=== PATIENT | male | born 1950 | race Caucasian/White ===

== ENCOUNTER 2022-05-21 12:15 | Outpatient (REF) | payer MEDICARE, BC, SELFPAY ==
--- OUTSIDE RECORDS SUMMARY | 2022-05-21 12:18 | XMS_ITS ---
:1950 Author Care Team Providers Name Role Phone LISANDRO CAMACHO MD Primary Care Provider [phone] Allergies Code Code System Name Reaction Severity Status Onset 723 RxNorm Amoxicillin Rash ? Active ? 96028 RxNorm Lisinopril Cough ? Active ? Medications Name Status Start Date Stop Date ? ? amlodipine 5 mg tablet Active ? Not avail able aspirin 81 mg tablet,delayed release Active ? Not available Take 1 tablet every day by oral route. atorvastatin 40 mg tablet Active ? Not av ailable cefprozil 500 mg tablet Active ? Not avai lable TAKE ONE TABLET BY MOUTH TWICE DAILY ceftriaxone 1 gram solution for injection Completed ? 08/30/2020 Take 1 g by injection route. ciprofloxacin 500 mg tablet Completed ? 07/03 doxycycline hyclate 100 mg tablet Completed ? 08/30/2020 doxycycline hyclate 50 mg capsule Active ? Not available Eligard 45 mg (6 month) subcutaneous syringe Active ? Not available Inject 45 mg by subcutaneous route. gentamicin 40 mg/mL injection solution Active ? Not available Take 40 mg by injection route. hydrocodone 5 mg-acetaminophen 325 mg tablet Active ? Not available lisinopril 5 mg tablet Completed ? 0 metoprolol succinate ER 50 mg tablet,extended release 24 Active ? Not available hr nitroglycerin 0.4 mg sublingual tablet Active ? Not available ProAir RespiClick 90 mcg/actuation breath activated Active ? Not available Shingrix (PF) 50 mcg/0.5 mL intramuscular suspension, Active ? Not available kit Symbicort 160 mcg-4.5 mcg/actuation HFA aerosol inhaler Active ? Not available tobramycin 0.3 %-dexamethasone 0.1 % eye Completed ? 08/30/2020 drops,suspension Problems None recorded. Procedures Date Name Performed by ? 03/06/2018 Colonoscopy Information not avai lable 06/16/2021 NM, Bone Scan, Whole Body [facility] Radiology Department [address] [facility] [place] [address] (Work Place) Results Lab Results Date Name Specimen Result Interpretation Description Value Range Status Address ? 12/13/2021 PSA, Serum or Plasma ? PSA, Total <0.04 ? ? 12/13/2021 PSA, Serum or Plasma ? No observation recor ded. ? ? ? 07/13/2020 PSA, Serum or Plasma ? No observation recor ded. ? ? ? 06/22/2020 PSA, Serum or Plasma ? No observation recor ded. ? PSA, Serum or Plasma ? No observation recorded. ? ? ? Past Encounters 12/13/2021 Malignant Tumor of Prostate Dave Gomez MD: [address], [place] [address], Ph. 10/30/2021 Malignant Tumor of Prostate Dave Gomez MD: [address], [place] [address], Ph. 08/23/2021 Malignant Tumor of Prostate Dave Gomez MD: [address], [place] [address], Ph. 07/19/2021 Malignant Tumor of Prostate Dave Gomez MD: [address], [place] [address], Ph. 06/13/2021 Malignant Tumor of Prostate; Primary Ere ctile Dysfunction; Large Prostate; History of Malignant Neoplasm of Prostate Dave Gomez MD: [address], [address] [place] [address], Ph. 05/12/2021 Malignant Tumor of Prostate; Large Prost ate; Raised Prostate Specific Antigen Dave Gomez MD: [address], [address], [place] [address], Ph. Social History Tobacco Smoking Status Never Smoker Vaccine List Vaccine Type pneumococcal polysaccharide PPV23 05/21/2014 Plan of Care Patient Instructions Patient will try and RTC by this aftern oon to have bladder scanned- [place]. Otherwise will call if he feels as though he is not emptying his bladder. Reminders Provider Appointments None recorded. ? ? Lab None recorded. ? ? Referral None recorded. ? ? Procedures None recorded. ? ? Surgeries None recorded. ? ? Imaging None recorded. ? ? Vitals 12/13/2021 11:30AM ESTABLISHED 15 Height Weight BMI 6 ft 3 in 250 lbs 31.2 kg/m2 08/23/2021 08:00AM TRUS 30 Height Weight BMI 6 ft 3 in 250 lbs 31.2 kg/m2 07/19/2021 02:00PM ESTABLISHED 20 Height Weight BMI 6 ft 3 in 250 lbs 31.2 kg/m2 06/13/2021 11:00AM [place] TALK Height Weight BMI 6 ft 3 in 260 lbs 32.5 kg/m2 05/12/2021 10:30AM URONAV 30 Height Weight BMI 6 ft 3 in 260 lbs 32.5 kg/m2 08/30/2020 08:30AM [place] TALK Height Weight BMI 6 ft 3 in 260 lbs 32.5 kg/m2
[2022-05-21 13:31] LABS: PSA Diagnostic* < 0.06 ng/mL (0.10-4.00)
== END 2022-05-21 12:16 | disposition home or self-care (01) ==
LOC: NPINS 12:15
PROVIDERS: PCP Family Medicine; Visit Provider Urology
DX: C61 Malignant neoplasm of prostate (principal)
CPT/HCPCS: 84153

== ENCOUNTER 2022-06-21 15:13 | Outpatient (CLI) | payer MEDICARE, BC, SELFPAY ==
--- OUTSIDE RECORDS SUMMARY | 2022-06-21 15:15 | XMS_ITS | Encounter Summary ---
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 [address] [place] [address] documented as of this encounter
--- OUTSIDE RECORDS SUMMARY | 2022-06-21 15:15 | XMS_ITS | Encounter Summary ---
:1950 Author Organization [facility] Address [address] [place] [address] Care Team Providers Name Role Phone Richar Rivas MD Primary Care Provider Encounter Details Date Type Department Care Team Description 10/23/2021 Lab [facility] Dave Gomez MD Encounter for screening Clinic [place] [facility] for other viral Laboratory [address] [facility] [address] [place] [address] [phone] Social History Tobacco Use Types Packs/Day Years Used Date Smoking Tobacco: Never Assessed Sex Assigned at Date Recorded Male 10/16/2021 11:49 AM [employer] COVID-19 Exposure Response Date Recorded In the last month, have you been in contact with No / Unsure 10/23/2021 11:18 AM [employer] someone who was confirmed or suspected to have Coronavirus / COVID-19? documented as of this encounter Plan of Treatment Not on filedocumented as of this encounter Procedures Procedure Name Priority Date/Time Associated Diagnosis Comme nts COVID-19 VIRUS Routine 10/23/2021 11:23 AM Encounter for Resul ts for this (CORONAVIRUS) BY [employer] screening for other proc edure are in PCR viral diseases the results section. documented in this encounter Results Asymptomatic COVID-19 Virus (Coronavirus) by PCR Nose (10/23/2021 11:23 AM [employer] GR[employer]) [facility] Method Time Signature SARS CoV2 PCR Negative Negative, 10/24/2021 [facility] Testing sent to 11:37 AM LABORATORY reference lab. [employer] Results will be returned via unsolicited result Comment: NEGATIVE: SARS-CoV-2 (COVID-19) RNA not detected, presumed negative. Specimen Anatomical Collection Method Collection Time Receive d Time (Source) Location / / Volume Laterality Swab NASAL STRUCTURE / Non-blood 10/23/2021 11:23 2021 Unknown Collection / AM [employer] 11:23 AM [employer] Unknown Narrative [facility] - 10/24/2021 11:37 AM [employer] Testing was performed using the phillip SARS-CoV-2 assay on the phillip Lookmash0 System. This test should be ordered for the detection of SARS-CoV-2 in individuals who meet SARS- CoV-2 clinical and/or epidemiological criteria. Test performan ce is unknown in asymptomatic patients. This test is for in vitro diag nostic use under the FDA EUA for laboratories certified under CLIA to perform high and/or moderate complexity testing. This test has not be en FDA cleared or approved. A negative result does not rule out the pr esence of PCR inhibitors in the specimen or target RNA in concentrat ion below the limit of detection for the assay. The possibility of a false negative should be considered if the patient's recent ex posure or clinical presentation suggests COVID-19. This robert t was validated by the [facility] Infectious Diseases Diag nostic Laboratory. This laboratory is certified under the [facility] Laboratory Improvement Amendments of 1988 (CLIA-88) as qualifie d to perform high and/or moderate complexity laboratory testing. Dave Gomez MD LAB - MICRO GENERAL ORDERABL ES Performing Organization Address City/State/ZIP Code Phon e Number [facility] [place] [address]ag[address] 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
--- OUTSIDE RECORDS SUMMARY | 2022-06-21 15:15 | XMS_ITS | Encounter Summary ---
:1950 Author Organization [facility] Address [address] [place] [id number] Care Team Providers Name Role Phone Richar Rivas MD Primary Care Provider Reason for Visit Auth/Cert Specialty Diagnoses / Procedures Referred By Contact Refer red To Contact Surgery Diagnoses Neoplasm/cancer (H) Neoplasm/cancer (H) [C80.1] Sh Periop Services Procedures ZZC ABLATION, CRYOSURGICAL, PROSTATE FLEXIBLE CYSTOSCOPY CRYOTHERAPY OF THE PROSTATE [address], [address] [place] [phone] Phone: Referral ID Status Reason Start Date Expiration Date Visits Requ ested Visits Authorized [id number] 1 1 Encounter Details Date Type Department Care Team Description 10/26/2021 Hospital Encounter M [facility] Patricia, Evelio Kessler MD Prostate cancer (H) [facility] (Primary Dx) PreOP/Phase II LTD [address], [address] [place] [phone] Social History Tobacco Use Types Packs/Day Years Used Date Smoking Tobacco: Never Smokeless Tobacco: Never Alcohol Use Standard Drinks/Week Comments Not Currently 0 (1 standard drink = 0.6 oz pure alcoho l) Sex Assigned at Date Recorded Male 10/16/2021 11:49 AM [employer] COVID-19 Exposure Response Date Recorded In the last month, have you been in contact with No / Unsure 10/26/2021 7:44 AM [employer] someone who was confirmed or suspected to have Coronavirus / COVID-19? documented as of this encounter Last Filed Vital Signs Vital Sign Reading Time Taken Comments Blood Pressure 142/89 10/26/2021 2:20 PM [employer] Pulse 72 10/26/2021 2:20 PM [employer] Temperature 36.2 ??C (97.2 ??F) 10/26/2021 2:20 PM [employer] Respiratory Rate 16 10/26/2021 2:20 PM [employer] Oxygen Saturation 98% 10/26/2021 2:20 PM [employer] Inhaled Oxygen Concentration - - Weight 116.2 kg (256 lb 1.6 oz) 10/26/2021 9:03 AM [employer] Height 190.5 cm (6' 3) 10/26/2021 9:03 AM [employer] Body Mass Index 32.01 10/26/2021 9:03 AM [employer] documented in this encounter Discharge Instructions Discharge InstructionsShira Blanco RN - 10/26/2021 12:32 PM CST Same Day Surgery Discharge Instructions for Sedation and General Anesthesia ?? It's not unusual to feel dizzy, light-headed or faint for up to 24 hours after surgery or while taking pain medication. If you have these symptoms: sit for a few minutes before standing and have someone assist you when you get up to walk or use the bathroom. ?? You should rest and relax for the next 24 hours. We recommend you make arrangements to have an adult stay with you for at least 24 hours after your discharge. Avoid hazardous and strenuous activity. ?? DO NOT DRIVE any vehicle or operate mechanical equipment for 24 hours following the end of your surgery. Even though you may feel normal, your reactions may be affected by the medication you have received. ?? Do not drink alcoholic beverages for 24 hours following surgery. ?? Slowly progress to your regular diet as you feel able. It's not unusual to feel nauseated and/or vomit after receiving anesthesia. If you develop these symptoms, drink clear liquids (apple juice, christoph padmini, broth, 7-up, etc. ) until you feel better. If your nausea and vomiting persists for 24 hours, please notify your surgeon. ?? All narcotic pain medications, along with inactivity and anesthesia, can cause constipation. Drinking plenty of liquids and increasing fiber intake will help. ?? For any questions of a medical nature, call your surgeon. ?? Do not make important decisions for 24 hours. ?? If you had general anesthesia, you may have a sore throat for a couple of days related to the breathing tube used during surgery. You may use Cepacol lozenges to help with this discomfort. If it worsens or if you develop a fever, contact your surgeon. ?? If you feel your pain is not well managed with the pain medications prescribed by your surgeon, please contact your surgeon's office to let them know so they can address your concerns. CoVid 19 Information We want to give you information regarding Covid. Please consult your primary care provider with any questions you might have. Patient who have symptoms (cough, fever, or shortness of breath), need to isolate for 7 days from when symptoms started OR 72 hours after fever resolves (without fever reducing medications) AND improvement of respiratory symptoms (whichever is longer). ?? Isolate yourself at home (in own room/own bathroom if possible) ?? Do Not allow any visitors ?? Do Not go to work or school ?? Do Not go to baptism, [facility], shopping, or other public places. ?? Do Not shake hands. ?? Avoid close and intimate contact with others (hugging, kissing). ?? Follow CDC recommendations for household cleaning of frequently touched services. After the initial 7 days, continue to isolate yourself from household members as much as possible. To continue decrease the risk of community spread and exposure, you and any members of your household should limit activities in public for 14 days after starting home isolation. You can reference the following CDC link for helpful home isolation/care tips: https://www.cdc.gov/coronavirus/2019-ncov/downloads/10Things.pdf Protect Others: ?? Cover Your Mouth and Nose with a mask, disposable tissue or wash cloth to avoid spreading germs to others. ?? Wash your hands and face frequently with soap and water Call Your Primary Doctor If: Breathing difficulty develops or you become worse. For more information about COVID19 and options for caring for yourself at home, please visit the CDCwebsite at https://www.cdc.gov/coronavirus/2019-ncov/about/lpark-kovw-qijv.html For more options for care at [facility], please visit our website at [email or web address] Discharge Instructions following Cryoblation of the Prostate [facility] Diet: ??? Diet as tolerated. Drink at least 6 glasses of liquid per day. Activity: ??? No heavy lifting or strenuous activity until approved by surgeon. ??? Short walks and stair climbing are permissible. Care After Surgery ??? Do not hold urine in your bladder. Always empty your bladder when you have the urge to urinate. ??? Do not strain to have a bowel movement. If constipated, take [id number] stool softeners (follow directions on package). ??? Do not drive a car or have intercourse until approved by your surgeon. ??? It is not unusual to pass small clots or to have red-tinged urine. If this occurs, decrease activity and increase your fluid intake. o You may expect to have some blood for at least 3-4 weeks, especially at the beginning or end of urination. If there is dark, thick blood with difficulty urinating call your surgeon. DISCHARGE INSTRUCTIONS FOR CATHETER CARE AT HOME . Basic Catheter Care 1. Always wash hands before and after handling your catheter. 2. Use soap and water to wash the area around your catheter. 3. Do this procedure twice a day. 4. Proper cleansing will help keep the area from becoming irritated or infected. Leg Bag This is a small plastic bag that collects urine draining from your catheter and then strapped aroundyour thigh. It will need to be emptied when the bag is 1/2 to 3/4 full. Large Drainage Bag 1. This bag is larger than the leg bag and holds more urine. It is to be used while at home, especially at night. 2. Before you go to bed, change the leg bag to the large drainage bag. 3. Pinch off the catheter with your fingers and swab the connection between the catheter and leg bagwith alcohol sponge. 4. Disconnect the leg bag and connect the large drainage bag to your catheter. 5. When you get into bed, arrange the drainage tubing so that it doesn???t kink. 6. Be sure to keep the bag below the level of your bladder and allow enough slack for turning. Cleaning Your Drainage Bags 1. Wash hands. 2. Using funnel or syringe, fill the bag half full with a solution of 1/2 vinegar and 1/2 water. 3. Shake bag, allowing mixture to cleanse inside of bag. 4. Empty out all vinegar and water mixture from your bag. 5. Hang bag to dry when not in use. 6. Clean your bags anytime you change them. Helpful Hints 1. Always keep drainage bags below bladder level to insure adequate drainage. 2. Drink 4-6 glasses of water daily along with other fluids you normally drink to keep urine free ofinfection and / or clots. 3. If you notice no urine in your bag for 2 to 4 hours or you develop extreme discomfort in bladder area, your catheter maybe plugged. Notify your doctor. 4. If you notice your urine becomes foul smelling and cloudy, notify your doctor. Also notify your doctor if you develop fever or chills. 5. If you notice urine leaking around the outside of the catheter, check to be sure catheter or tubing is not kinked. 6. Don???t use leg bag while in bed. If you have questions or concerns about your procedure, call Dr. Gomez at [phone] [employer] documented in this encounter Medications at Time of Discharge Medication Sig Dispensed Refills Start Date End Date albuterol (PROAIR Inhale 2 puffs into 0 HFA/PROVENTIL HFA/VENTOLIN the lungs every 6 HFA) 108 (90 Base) MCG/ACT hours inhaler amLODIPine (NORVASC) 5 MG Take 5 mg by mouth 0 tablet daily aspirin 81 MG EC tablet Take 81 mg by mouth 0 daily atorvastatin (LIPITOR) 40 Take 40 mg by mouth 0 MG tablet daily cefPROZIL (CEFZIL) 500 MG Take 500 mg by mouth 0 tablet 2 times daily doxycycline hyclate Take 100 mg by mouth 0 (VIBRAMYCIN) 100 MG 2 times daily capsule fexofenadine (GRAHAM) 180 Take 180 mg by mouth 0 MG tablet daily fish oil-omega-3 fatty Take 2 g by mouth 2 0 acids 1000 MG capsule times daily HYDROcodone-acetaminophen Take 1-2 tablets by 5 tablet 0 0 10/26/2021 (NORCO) 5-325 MG mouth every 4 hours tabletIndications: as needed for Prostate cancer (H) moderate to severe pain metoprolol succinate ER Take 50 mg by mouth 0 (TOPROL-XL) 50 MG 24 hr daily tablet nitroGLYcerin (NITROSTAT) Place 0.4 mg under 0 0.4 MG sublingual tablet the tongue every 5 minutes as needed for chest pain For chest pain place 1 tablet under the tongue every 5 minutes for 3 doses. If symptoms persist 5 minutes after 1st dose call 911. documented as of this encounter H&P Notes Gerson Schofield MD - 10/26/2021 8:57 AM CST I have reviewed the surgical (or preoperative) H&P that is linked to this encounter, and examined the patient. There are no significant changes [employer] Source Note - Anastasia, Provider - 10/24/2021 11:27 AM [employer] documented in this encounter Procedure Notes Dave Gomez MD - 10/26/2021 11:30 AM CST [facility] Urology Brief Operative Note Pre-operative diagnosis: Prostate cancer Post-operative diagnosis: Same Procedure: Procedure(s): FLEXIBLE CYSTOSCOPY CRYOTHERAPY OF THE PROSTATE Surgeon: Dave Gomez MD Clinical Program Director(s): None Anesthesia: General endotracheal anesthesia Estimated blood loss: None Total IV fluids: (See anesthesia record) Blood transfusion: No transfusion was given during surgery Total urine output: (See anesthesia record) Drains: Nina catheter Specimens: None Implants: None Findings: See op note Complications: None Condition: Stable Comments: See dictated operative report for full details [employer] documented in this encounter Nursing Notes Shira Blanco RN - 10/26/2021 2:34 PM CST VSS. A&O. Pain tolerable. Tanesha PO, no N/V. Nina education done with patient and , able to teachback. DC instructions reviewed, questions answered. DC to home with . [employer] Reyna Champagne RN - 10/26/2021 1:24 PM CST Assumed cares while primary nurse went on break from 1315 to 1345. [employer] documented in this encounter Miscellaneous Notes Op Note - Dave Gomez MD - 10/26/2021 11:37 AM CST Procedure Date: 10/26/2021 PREOPERATIVE DIAGNOSIS: Prostate cancer. POSTOPERATIVE DIAGNOSIS: Prostate cancer. PROCEDURES PERFORMED: 1. Flexible cystoscopy. 2. Cryoablation of the prostate. SURGEON: Dave Gomez MD ANESTHESIA: General. ESTIMATED BLOOD LOSS: Zero. DESCRIPTION OF PROCEDURE: The patient was prepped and draped in the modified dorsal lithotomy position under satisfactory general endotracheal anesthetic with a multidisciplinary timeout observed, I inserted a transrectal B and K ultrasound probe and measured the prostate to be over 4 cm in length and, therefore, ice rods were chosen as the cryoablation device. A Nina catheter was inserted (16 Pakistani coude) and this was visualized on the ultrasound machine. Using the transrectal ultrasound. I placed an 8 cryoprobes, with an over predominance of the cryoprobes located anteriorly as this is where the higher grade prostate cancer was noted. Once the cryoprobes were in the appropriate places, thermal sensors were placed to ensure that no injury occurred to the rectum or other additional sites. A double freeze-thaw technique using argon gas to freeze and electrical current to warm took place that was per routine. I watched the ice ball as it propagated through the prostate, particularly in the anterior portion of the prostate very nicely. At no time did I see an ice ball encroach on the rectum. After the second thawing, the cryoprobes were removed from the perineum and pressure applied for 10 minutes. Prior to any freezing, Nina catheter had been removed and I had used a flexible cystoscope to make sure that no cryoprobes had perforated the prostatic urethra. I then passed a Super Stiff Amplatz wire, backloaded the flexible scope off of the wire and then inserted a urethral warming device. The urethral warming device was run throughout the procedure and an additional 20 minutes after the second following procedure. I then reinserted the Nina catheter. The patient will go home with this through the weekend and then come to our office on 10/30/2021, for Nina catheter removal. I spoke to the patient's and will see Ethan back in the clinic in approximately 2 months to check a PSA. Tegaderm dressing was applied and his will remove this over the weekend. The patient tolerated the procedure well and left the operating room in stable condition. Dave Gomez MD MT: [id number] Name: JAYDEN CROOK Account: [id number] : 1950 Procedure Date: 10/26/2021 Document: [id number] [employer] documented in this encounter Plan of Treatment Not on filedocumented as of this encounter Procedures Procedure Name Priority Date/Time Associated Diagnosis Comme nts CRYOTHERAPY, PROSTATE, 10/26/2021 9:39 AM [employer] Neoplasm /cancer (H) WITH FLEXIBLE CYSTOSCOPY Case Notes [employer] Special Needs CONFIGURATION MANAGEMENT ARCHITECT FOR FLEXIBLE CYSTOSCOPY PER OFFICE 09/29/21 AB TYPE AND SCREEN, ADULT STAT 10/26/2021 9:15 AM [employer] Results for this procedure are in the resu lts section. ABO/RH TYPE AND SCREEN STAT 10/26/2021 9:15 AM [employer] Results for this procedure are in the resu lts section. NUCLEAR CARDIAC - HIM SCAN 09/06/2021 12:00 AM [employer] documented in this encounter Results Adult Type and Screen (10/26/2021 9:15 AM [employer]) [facility] Method Time Signature ABO/RH(D) A POS 10/26/2021 SH BLOOD 8:45 AM [employer] BANK Antibody Negative Negative 10/26/2021 SH BLOOD Screen 8:45 AM [employer] BANK SPECIMEN [id number] 10/26/2021 SH BLOOD EXPIRATION 8:45 AM [employer] BANK DATE Specimen Anatomical Collection Method / Collection Time Recei alexx Time (Source) Location / Volume Laterality Blood STRUCTURE OF RIGHT Venipuncture / 10/26/2021 9:15 10/04 9:27 HAND / Unknown Unknown AM [employer] AM [employer] Yesica Elizabeth PA-C LAB - BLOOD BANK TEST ORDER Performing Organization Address City/State/ZIP Code Phon e Number BLOOD BANK [address] [place] [phone] NUCLEAR CARDIAC - HIM SCAN (09/06/2021 12:00 AM [employer]) Anatomical Region Laterality Modality Other Specimen (Source) Anatomical Location Collection Method / Collectio n Time Received Time / Laterality Volume 09/06/2021 Narrative This result has an attachment that is no t available. Provider Scan IMG NM ORDERABLES documented in this encounter Visit Diagnoses Diagnosis Prostate cancer (H) - Primary Malignant neoplasm of prostate documented in this encounter Administered Medications Inactive Administered Medications - up to 3 most recent administrations Medication Order MAR Action Action Date Dose Rate Site fentaNYL (PF) (SUBLIMAZE) Given 10/26/2021 1:15 PM [employer] 50 mcg injection 50 mcg 50 mcg, Intravenous, EVERY 5 MIN PRN, moderate to severe pain, Starting on Ameena 10/26/21 at 1222, Administer fentaNYL (SUBLIMAZE) for acute pain control. Move to HYDROmorphone (DILAUDID): - IF patient has received up to 4 doses (200 mcg) of fentaNYL (SUBLIMAZE), OR - IF severe pain (pain score greater than or equal to seven (7) or inability of patient to participate in post op recovery due to pain) AFTER 2 doses fentaNYL (SUBLIMAZE). WAIT 5 minutes AFTER last fentaNYL (SUBLIMAZE) dose before administering HYDROmorphone (DILAUDID). Postop Anesthesia Phase I only. Notify Provider to assess for uncontrolled pain or analgesic side effects. Do NOT revert back to fentanyl (SUBLIMAZE) after moving to HYDROmorphone (DILAUDID)., PACU Given 10/26/2021 1:00 PM [employer] 50 mcg hydrALAZINE (APRESOLINE) injection 5 mg Given 10/26/2021 1:31 PM [employer] 5 mg 5 mg, Intravenous, ONCE, Administer over 1 Minutes, On Ameena 10/26/21 at 1400, For 1 dose HYDROcodone-acetaminophen (NORCO) 5-325 MG Given 10/26 1:00 PM [employer] 1 tablet per tablet 1 tablet 1 tablet, Oral, ONCE, On Ameena 10/26/21 at 1230, For 1 dose, May administer ONCE as needed for pain control or improvement in physical function. Notify provider to assess for uncontrolled pain or??analgesic side effects. Maximum acetaminophen dose from all sources= 75 mg/kg/day not to exceed 4 grams lactated ringers infusion New Bag 10/26/2021 11:53 AM [employer] at 25 mL/hr, Intravenous, CONTINUOUS, IF patient NOT on dialysis., Pre-procedure, Starting on Ameena 10/26/21 at 0830, Until Ameena 10/26/21 at 1209 New Bag 10/26/2021 9:44 AM [employer] 25 mL/hr meperidine (DEMEROL) injection 12.5 mg Given 10/26/2021 1:36 PM [employer] 12.5 mg 12.5 mg, Intravenous, EVERY 15 MIN PRN, post anesthesia shivering, Starting on Ameena 10/26/21 at 1223, For 2 doses, PACU/Phase II documented in this encounter Active and Recently Administered Medications Times are shown in [employer]. Scheduled Medication Order 10/24/2021 10/25/2021 10/26/2021 hydrALAZINE (APRESOLINE) injection 5 mg (COMPLETED) 1331 (Given - Provider: Reyna Champagne RN) 5 mg, Intravenous, ONCE, Administer over 1 Minutes, On Ameena 10/26/21 at 1400, For 1 dose HYDROcodone-acetaminophen (NORCO) 5-325 MG per tablet 1 tablet ( COMPLETED) 1300 (Given - Provider: Shira Blanco, RELL) 1 tablet, Oral, ONCE, On Ameena 10/26/21 at 1230, For 1 dose, May administer ONCE as needed for pain control or improvement in physical function. Notify provider to assess for uncontrolled pain or??analgesi c side effects. Maximum acetaminophen do se from all sources= 75 mg/kg/day not to exceed 4 grams Continuous Medication Order 10/24/2021 10/25/2021 10/26/2021 lactated ringers infusion (CANCELED) 0944 (New Bag - Provider: Gerson Bolden RN)1152 (Paused - Provider: Jorge Alberto Garcia APRN COIL WRAPPER - Comment: Switch to gravity)1153 (New Bag - Provider: Jorge Alberto Garcia APRN COIL WRAPPER) at 25 mL/hr, Intravenous, CONTINUOUS, IF patient NOT on dialysis., Pre- procedure, Starting on Ameena 10/26/21 at 0830, Until Ameena 10/26/21 at 1209 PRN Medication Order 10/24/2021 10/25/2021 10/26/2021 fentaNYL (PF) (SUBLIMAZE) injection 50 mcg (CANCELED) 1300 (Given - Provider: Shira Blanco RN)1315 (Given - Provider: Reyna Champagne RN) 50 mcg, Intravenous, EVERY 5 MIN PRN, mo derate to severe pain, Starting on Ameena 10/26/21 at 1222, Administer fentaNYL (SUBLIMAZE) for acute pain control. Move to HYDROmorphone (DILAUDID): - IF patient has received up to 4 doses (200 mcg) of fen taNYL (SUBLIMAZE), OR - IF severe pain (pain score greater than or equal to seven (7) or inability of patient to participate in post op recovery due to pain) AFTE R 2 doses fentaNYL (SUBLIMAZE). WAIT 5 m inutes AFTER last fentaNYL (SUBLIMAZE) dose before administering HYDROmorphone (DILAUDID). Postop Anesthesia Phase I only. Notify Provider to assess for uncontrol led pain or analgesic side effects. Do N OT revert back to fentanyl (SUBLIMAZE) after moving to HYDROmorphone (DILAUDID)., PACU meperidine (DEMEROL) injection 12.5 mg (CANCELED) 1336 (Given - Provider: Reyna Champagne RN) 12.5 mg, Intravenous, EVERY 15 MIN PRN, post anesthesia shivering, Starting on Ameena 10/26/21 at 1223, For 2 doses, PACU/Phase II opium-belladonna (B&O SUPPRETTES) 30-16.2 MG per suppository (CA NCELED) 1148 (Given - Provider: Dave Gomez MD) PRN, Starting on Ameena 10/26/21 at 1148, Intra-procedure documented in this encounter Care Teams Digital Advertising Specialist Relationship Specialty Start Date End Date Richar Rivas MD PCP - General Family Medicine 10/03/21 [facility] [address] [place] [address] documented as of this encounter
--- OUTSIDE RECORDS SUMMARY | 2022-06-21 15:15 | XMS_ITS | Encounter Summary ---
:1950 Author Organization [facility] Address [address] [place] [address] Care Team Providers Name Role Phone Richar Rivas MD Primary Care Provider Reason for Visit Auth/Cert Specialty Diagnoses / Procedures Referred By Contact Refer red To Contact Surgery Diagnoses Neoplasm/cancer (H) Neoplasm/cancer (H) [C80.1] Periop Services Procedures [facility] ABLATION, CRYOSURGICAL, PROSTATE FLEXIBLE CYSTOSCOPY CRYOTHERAPY OF THE PROSTATE [address], [address] [place] [address] Phone: Referral ID Status Reason Start Date Expiration Date Visits Requ ested Visits Authorized [id number] 1 1 Encounter Details Date Type Department Care Team Description 10/26/2021 Surgery [facility] Dave Gomez MD FLEXIBLE CYSTOSCOPY [facility]iOP [facility] CRYOTHERAPY OF THE Services [address] SUE PROSTATE [address] [place] [address] [place] [address] [phone] Surgery Details Date/Time Status Location OR Service Patient Case Class Case Tr auma Class Type Case? 10/26/21 9:50 Posted OR OR M 31 Urology Same Day AM Surgery Panel 1 Procedure LRB Anes Op Region Wound Class Commen ts FLEXIBLE CYSTOSCOPY CRYOTHERAPY OF THE N/A General Pelvis I-Clean PROSTATE Surgeon Surgeon Role Service Panel Dave Gomez MD Primary Urology 1 Case Notes [employer] INVOICE Special Needs SPINNER OPEN END FOR FLEXIBLE CYSTOSCOPY P ER OFFICE 09/29/21 AB documented in this encounter Social History Tobacco Use Types Packs/Day Years Used Date Smoking Tobacco: Never Smokeless Tobacco: Never Alcohol Use Standard Drinks/Week Comments Not Currently 0 (1 standard drink = 0.6 oz pure alcoho l) Sex Assigned at Date Recorded Male 10/16/2021 11:49 AM [facility] COVID-19 Exposure Response Date Recorded In the last month, have you been in contact with No / Unsure 10/26/2021 7:44 AM [facility] [employer] someone who was confirmed or suspected to have Coronavirus / COVID-19? documented as of this encounter Last Filed Vital Signs Vital Sign Reading Time Taken Comments Blood Pressure 163/111 10/26/2021 12:30 PM [facility] Pulse 67 10/26/2021 12:30 PM [facility] Temperature 36.1 ??C (96.9 ??F) 10/26/2021 12:09 PM [facility] Respiratory Rate 11 10/26/2021 12:30 PM [facility] Oxygen Saturation 97% 10/26/2021 12:30 PM [facility] Inhaled Oxygen Concentration - - Weight 116.2 kg (256 lb 1.6 oz) 10/26/2021 9:03 AM [facility] [employer] Height 190.5 cm (6' 3) 10/26/2021 9:03 AM [facility] Body Mass Index 32.01 10/26/2021 9:03 AM [facility] [employer] documented in this encounter Discharge Instructions Discharge [...] or school ?? Do Not go to taoism, child watch attendant centers, shopping, or other public places. ?? [...] at home, please visit the CDCwebsite at https://www.cdc.gov/coronavirus/2019-ncov/about/pegix-gjjz-okdh.html For more options for care at [facility], please visit our website at [email or web address] Discharge Instructions following Cryoblation of the Prostate [facility] Diet: ??? Diet as tolerated. Drink [...] have a bowel movement. If constipated, take khiu-[id number]-[id number] stool softeners (follow directions on package). ??? [...] about your procedure, call Dr. Gomez at [phone] [facility] documented in this encounter Medications at Time [...] the patient. There are no significant changes HEAD HOOPER Source Note - Anastasia, Provider - 10/24/2021 11:27 AM [employer] [employer] documented in this encounter Procedure Notes Dave Gomez MD - 10/26/2021 11:30 AM CST [facility] Urology Brief Operative Note Pre-operative diagnosis: Prostate cancer Post-operative diagnosis: Same Procedure: Procedure(s): FLEXIBLE CYSTOSCOPY CRYOTHERAPY OF THE PROSTATE Surgeon: Dave Gomez MD Retail Sales Professional(s): None Anesthesia: General endotracheal anesthesia Estimated blood loss: None Total IV fluids: (See anesthesia record) Blood transfusion: No transfusion was given during surgery Total urine output: (See anesthesia record) Drains: Nina catheter Specimens: None Implants: None Findings: See op note Complications: None Condition: Stable Comments: See dictated operative report for full details HEAD HOOPER documented in this encounter Nursing Notes Shira Blanco RN - 10/26/2021 2:34 PM CST VSS. A&O. Pain tolerable. Tanesha PO, no N/V. Nina education done with patient and , able to teachback. DC instructions reviewed, questions answered. DC to home with . HEAD HOOPER Reyna Champagne RN - 10/26/2021 1:24 PM CST Assumed cares while primary nurse went on break from 1315 to 1345. HEAD HOOPER documented in this encounter Miscellaneous Notes Op [...] device. A Nina catheter was inserted (16 Kyrgyz coude) and this was visualized on the [...] in stable condition. Dave Gomez MD MT: SCOTTY Name: JAYDEN CROOK MRN: [id number] Account: [id number] : 1950 Procedure Date: 10/26/2021 Document: [id number] HEAD [employer]OPER documented in this encounter Plan of Treatment Not on filedocumented as of this encounter Procedures Procedure Name Priority Date/Time Associated Diagnosis Comme nts CRYOTHERAPY, PROSTATE, 10/26/2021 9:39 AM [facility] Neoplasm /cancer (H) WITH FLEXIBLE CYSTOSCOPY Case Notes [employer] INVOICE Special Needs SPINNER OPEN END FOR FLEXIBLE CYSTOSCOPY PER OFFICE 09/29/21 AB TYPE AND SCREEN, ADULT STAT 10/26/2021 9:15 AM [facility] Results for this procedure are in the resu lts section. ABO/RH TYPE AND SCREEN STAT 10/26/2021 9:15 AM [facility] Results for this procedure are in the resu lts section. NUCLEAR CARDIAC - HIM SCAN 09/06/2021 12:00 AM [facility] [employer] documented in this encounter Results Adult Type and Screen (10/26/2021 9:15 AM [facility]) Patholo gist Method Time Signature ABO/RH(D) A POS 10/26/2021 BLOOD 8:45 AM [facility] BANK Antibody Negative Negative 10/26/2021 BLOOD Screen 8:45 AM [facility] BANK SPECIMEN [id number] 10/26/2021 BLOOD EXPIRATION 8:45 AM [facility] BANK DATE Specimen Anatomical Collection Method / Collection Time Recei alexx Time (Source) Location / Volume Laterality Blood STRUCTURE OF RIGHT Venipuncture / 10/26/2021 9:15 10/04 9:27 HAND / Unknown Unknown AM [facility] AM [facility] Yesica Elizabeth PA-C LAB - BLOOD BANK TEST ORDER Performing Organization Address City/State/ZIP Code Phon e Number BLOOD BANK [address] [phone] NUCLEAR CARDIAC - HIM SCAN (09/06/2021 12:00 AM [facility]) Anatomical Region Laterality Modality Other Specimen (Source) Anatomical Location Collection Method / Collectio n Time Received Time / Laterality Volume 09/06/2021 Narrative This result has an attachment that is no t available. Provider Scan IMG NM ORDERABLES documented in this encounter Visit Diagnoses Diagnosis Prostate cancer (H) - Primary Malignant neoplasm of prostate Neoplasm/cancer (H) Neoplasm of unspecified nature, site uns pecified documented in this encounter Administered Medications Inactive Administered Medications - up to 3 most recent administrations Medication Order MAR Action Action Date Dose Rate Site fentaNYL (PF) (SUBLIMAZE) Given 10/26/2021 1:15 PM [facility] 50 mcg injection 50 mcg 50 mcg, [...] HYDROmorphone (DILAUDID)., PACU Given 10/26/2021 1:00 PM [facility] 50 mcg hydrALAZINE (APRESOLINE) injection 5 mg Given 10/26/2021 1:31 PM [facility] 5 mg 5 mg, Intravenous, ONCE, Administer over 1 Minutes, On Ameena 10/26/21 at 1400, For 1 dose HYDROcodone-acetaminophen (NORCO) 5-325 MG Given 10/26 1:00 PM [facility] 1 tablet per tablet 1 tablet 1 tablet, Oral, ONCE, On Ameena 10/26/21 at 1230, For 1 dose, May administer ONCE as needed for pain control or improvement in physical function. Notify provider to assess for uncontrolled pain or??analgesic side effects. Maximum acetaminophen dose from all sources= 75 mg/kg/day not to exceed 4 grams lactated ringers infusion New Bag 10/26/2021 11:53 AM [facility] at 25 mL/hr, Intravenous, CONTINUOUS, IF patient NOT on dialysis., Pre-procedure, Starting on Ameena 10/26/21 at 0830, Until Ameena 10/26/21 at 1209 New Bag 10/26/2021 9:44 AM [facility] 25 mL/hr meperidine (DEMEROL) injection 12.5 mg Given 10/26/2021 1:36 PM [facility] 12.5 mg 12.5 mg, Intravenous, EVERY 15 MIN PRN, post anesthesia shivering, Starting on Ameena 10/26/21 at 1223, For 2 doses, PACU/Phase II opium-belladonna (B&O SUPPRETTES) 30-16.2 MG Given 11:48 AM [facility] 30 mg per suppository PRN, Starting on Ameena 10/26/21 at 1148, Intra-procedure documented in this encounter Active and Recently Administered Medications Times are shown in [facility]. Scheduled Medication Order 10/24/2021 10/25/2021 10/26/2021 hydrALAZINE (APRESOLINE) injection 5 mg (COMPLETED) 1331 (Given - Provider: Reyna Champagne RN) 5 mg, Intravenous, ONCE, Administer over 1 Minutes, On Ameena 10/26/21 at 1400, For 1 dose HYDROcodone-acetaminophen (NORCO) 5-325 MG per tablet 1 tablet ( COMPLETED) 1300 (Given - Provider: Shira Blanco, RN) 1 tablet, Oral, ONCE, On Ameena 10/26/21 [...] (Paused - Provider: Jorge Alberto Garcia APRN LEDGER POSTER - Comment: Switch to gravity)1153 (New Bag - Provider: Jorge Alberto Garcia APRN LEDGER POSTER) at 25 mL/hr, Intravenous, CONTINUOUS, IF patient [...] Intra-procedure documented in this encounter Care Teams [employer] Hand Engraver Relationship Specialty Start Date End Date Richar Rivas MD PCP - General Family Medicine 10/03/21 [place] [address] documented as of this encounter
--- OUTSIDE RECORDS SUMMARY | 2022-06-21 15:15 | XMS_ITS | Encounter Summary ---
:1950 Author Organization [place] Address [facility] [place] [address] Care Team Providers Name Role Phone Richar Rivas MD Primary Care Provider Encounter Details Date Type Department Care Team Description 10/09/2021 Orders Only [facility] Patricia, Dave Kessler MD Encounter for [facility] screening for other [address] [place] viral diseases [place] [id number] (Primary Dx) [phone] [address] [place] [address] (Wo rk) Social History Tobacco Use Types Packs/Day Years Used Date Smoking Tobacco: Never Assessed Sex Assigned at Date Recorded Male 10/16/2021 11:49 AM [employer]IC[employer] documented as of this encounter Plan of Treatment Not on filedocumented as of this encounter Results Asymptomatic COVID-19 Virus (Coronavirus) by PCR Nose (10/23/2021 11:23 AM DISPENSING AND MEASURING OPTICIAN) [facility] Method Time Signature SARS CoV2 PCR Negative Negative, 10/24/2021 [facility] Testing sent to 11:37 AM LABORATORY reference lab. [employer] MEASURING OPTICIAN Results will be returned via unsolicited result Comment: NEGATIVE: SARS-CoV-2 (COVID-19) RNA not detected, presumed negative. Specimen Anatomical Collection Method Collection Time Receive d Time (Source) Location / / Volume Laterality Swab NASAL STRUCTURE / Non-blood 10/23/2021 11:23 2021 Unknown Collection / AM [employer] ME[employer]URING [employer]ICIAN 11:23 AM DISP[employer]ING AND MEASURING OPTICIAN Unknown Narrative [facility] - 10/24/2021 11:37 AM [employer] MEASURING [employer]ICIAN Testing was performed using the phillip SARS-CoV-2 assay on the phillip 6800 System. This test should be ordered for [...] This robert t was validated by the [facility] Infectious Diseases Diag nostic Laboratory. This laboratory is certified under the Clinic al Laboratory Improvement Amendments of 1988 (CLIA-88) as qualifie d to perform high and/or moderate complexity laboratory testing. Dave Gomez MD LAB - MICRO GENERAL ORDERABL ES Performing Organization Address City/State/ZIP Code Phon e Number [facility] [place] [address] Diag. Lab [address] [facility], [address] [facility] Infectious [place], [place] [phone] Diseases Diagnostic [id number], [facility] Lab (IDDL) [address] [facility], [address] documented in this encounter Visit Diagnoses Diagnosis Encounter for screening for other viral diseases - Primary documented in this encounter Care Teams Health Occupations Teacher Relationship Specialty Start Date End Date Richar Rivas MD PCP - General Family Medicine 10/03/21 [facility] [address] [place] [address] documented as of this encounter
--- OUTSIDE RECORDS SUMMARY | 2022-06-21 15:15 | XMS_ITS | Encounter Summary ---
:1950 Author Organization [place] Address [address] [place], [place] [address]. [place] [address] Care Team Providers Name Role Phone Richar Rivas MD Primary Care Provider Reason for Visit Auth/Cert Specialty Diagnoses / Procedures Referred By Contact Refer red To Contact Surgery Diagnoses Neoplasm/cancer (H) Neoplasm/cancer (H) [C80.1] Periop Services Procedures ZZC ABLATION, CRYOSURGICAL, PROSTATE FLEXIBLE CYSTOSCOPY CRYOTHERAPY OF THE PROSTATE [address], [address] [place] [address] Phone: Referral ID Status Reason Start Date Expiration Date Visits Requ ested Visits Authorized [id number] 1 1 Encounter Details Date Type Department Care Team Description 10/26/2021 Anesthesia Event [facility] Services ANESTHESIOLOGIS [address], [address] [place] [address] [place] [address] [phone] Anesthesia Record Procedure Summary Procedure Name Responsible Anesthesia Start Anesthesia Stop Anesthesiologist Time Time FLEXIBLE CYSTOSCOPY Gerson Schofield MD 10/26/21 1001 1214 CRYOTHERAPY OF THE PROSTATE (Pelvis) Events Date Time Event Comment 10/26/2021 0856 1001 An Start 1001 An Start Data 1001 Initial Antibiotic (Started) 1002 AN REASSESS I attest that I have identified and re-evaluated the patient immediately before the induc tion of anesthesia and I am satisfied duc t the anesthetic plan is suitable for the patient's condition and procedure. The f irst vital signs recorded are pre - induction. RHODA Seals A 1003 MD Present 1004 Antibiotic Complete 1004 An Induction 1006 MD Present 1007 An Intubation 1032 AN INCISION 1032 Quick Note Surgeon requeste d full muscle relaxation for procedure. 1044 MD Present 1131 MD Present 1201 MD Present 1206 AN Extubation All extubation c riteria met prior to removal. 1206 MD Present 1207 an stop data 1214 An Stop Electronically s igned by RHODA Seals on October 26, 2021 12:14 PM Name Total dexamethasone 4mg/mL 4 mg ePHEDrine 5 mg/mL 25 mg fentaNYL (SUBLIMAZE) injection 100 mcg lidocaine 2% 100 mg ondansetron 2mg/mL 4 mg phenylephrine (TALAT-SYNEPHRINE) injection 800 mcg propofol (DIPRIVAN) injection 10 mg/mL vial 200 mg rocuronium 10mg/mL 110 mg ceFAZolin vial 1 gm 2 g sugammadex (BRIDION) 200mg/2mL 200 mg lactated ringers infusion 900 mL Agents Name NO HELIOX O2 N2O Air Exp Sevoflurane Exp Isoflurane Exp Desflurane Exp N2O O2 Delivery Device Ins Sevoflurane Ins Isoflurane Ins Desflurane O2 Auxiliary Blood No blood administrations on file. Lines, Drains, and Airways Type Details Placement Removal Incision/Surgical Site 10/26/21; 1039; 10/26/21 1039 by Perineum; needle Lacey Garcia RN sticks Peripheral IV 10/26/21; 0915; 20 G; 10/26/21 0915 by 10/26/21 1430 by BD; Right; Hand; Gerson Bolden RN Robertson, Nicole, Chlorhexidine; RN Tolerated well ETT Placement Date: 10/26/21 1023 by 10/26/21 1206 b y 10/26/21; Placement Jorge Alberto Garcia Beumer, Frederic N, Time: 1023 (created DREDGE OPERATOR AIRPLANE PILOT CHIEF DREDGE OPERATOR AIRPLANE PILOT CHIEF via procedure documentation); Mask Ventilation: 2; Induction Type: Intravenous; Ease of Intubation: Easy; Technique: Video laryngoscopy; ETT Type: Single; Tube Size: 8 mm; VL Blade Size: Mazariegos 4; Grade View: 1; Adjucts: Stylet; Placement Person: AIRPLANE PILOT CHIEF; Attempts: 1; Depth: 24 cm Urethral Catheter 10/26/21; 1032; No; 10/26/21 1032 by 10/26/21 1534 by /GI/ALGOLOGY TEACHER Pelvic Lacey Garcia RN Inpatient, Nurse Procedure; 16 fr documented in this encounter Social History Tobacco Use Types Packs/Day Years Used Date Smoking Tobacco: Never Smokeless Tobacco: Never Alcohol Use Standard Drinks/Week Comments Not Currently 0 (1 standard drink = 0.6 oz pure alcoho l) Sex Assigned at Date Recorded Male 10/16/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 documented as of this encounter OR Notes Anesthesia Postprocedure Evaluation - Gerson Schofield MD - 10/26/2021 6:02 PM CST Patient: Jayden Crook Procedure: Procedure(s): FLEXIBLE CYSTOSCOPY CRYOTHERAPY OF THE PROSTATE Anesthesia Type: General Note: Postop Pain Control: Uneventful Sign Out: Well controlled pain PONV: No Neuro/Psych: Uneventful Sign Out: Acceptable/Baseline neuro status Airway/Respiratory: Uneventful Sign Out: Acceptable/Baseline resp. status CV/Hemodynamics: Uneventful Sign Out: Acceptable CV status; No obvious hypovolemia; No obvious fluid overload Other NRE: NONE DID A NON-ROUTINE EVENT OCCUR? No Last vitals: Vitals Value Taken Time BP 142/90 10/26/21 1415 Temp 35.9 ??C (96.7 ??F) 10/26/21 1315 Pulse 67 10/26/21 1418 Resp 12 10/26/21 1418 SpO2 98 % 10/26/21 1418 Vitals shown include unvalidated device data. Electronically Signed By: Gerson Schofield MD October 26, 2021 6:02 PM TENANCE WORKER Anesthesia Procedure Notes - Jorge Alberto Garcia APRN AIRPLANE PILOT CHIEF - 10/26/2021 10:22 AM CSTAssociated Order(s): Airway Airway Patient location: [facility] - Operating Room or Procedural Area. Procedure Start/Stop Times: 10/26/2021 10:07 AM and 10/26/2021 10:07 AM Staff - AIRPLANE PILOT CHIEF: Jorge Alberto Garcia APRN AIRPLANE PILOT CHIEF Performed By: CRNAIndications and Patient Condition Indications for airway management: dontrell-procedural and airway protection Induction type:intravenous Mask difficulty assessment: 2 - vent by mask + OA or adjuvant +/- NMBA Final Airway Details Final airway type: endotracheal airway Successful airway: ETT - single Endotracheal Airway Details ETT size (mm): 8.0 Cuffed: yes Successful intubation technique: video laryngoscopy VL Blade Size: Mazariegos 4 Grade View of Cords: 1 Adjucts: stylet Position: Center Measured from: gums/teeth Secured at (cm): 24 Bite block used: None Post intubation assessment Placement verified by: capnometry and equal breath sounds Number of attempts at approach: 1 Number of other approaches attempted: 0 Secured with: pink tape Ease of procedure: easy Dentition: Intact and Unchanged Additional Comments Routine dontrell-procedural airway protection. Mazariegos 4. 8.0 mm ID endotracheal tube. TENANCE WORKER Anesthesia Preprocedure Evaluation - Gerson Schofield MD - 10/25/2021 4:46 PM CST Anesthesia Pre-Procedure Evaluation Patient: Jayden Crook : 1950 Procedure : Procedure(s): FLEXIBLE CYSTOSCOPY CRYOTHERAPY OF THE PROSTATE Past Medical History: Diagnosis Date ??? Allergic rhinitis ??? CKD (chronic kidney disease) ??? Coronary artery disease ??? Heart attack (H) ??? HLD (hyperlipidemia) ??? Hypertension ??? Prostate cancer (H) ??? Sleep apnea Past Surgical History: Procedure Laterality Date ??? COLONOSCOPY ??? CORONARY STENT PLACEMENT ??? ENT SURGERY nasal polypectomy Allergies Allergen Reactions ??? Lisinopril Cough ??? Amoxicillin Rash Social History Tobacco Use ??? Smoking status: Never Smoker ??? Smokeless tobacco: Never Used Substance Use Topics ??? Alcohol use: Not on file Wt Readings from Last 1 Encounters: No data found for Wt HGB 14.7 K 4.4 NM Cardiac MPI stress 09/06/21 1. ??There is no evidence of significant myocardial ischemia or infarction. 2. ??Normal left ventricular ejection fraction of 67 percent. ?? Echo 10/07/2020 Final Impressions: ??1. Normal LV size, normal wall thickness, normal global systolic function with an estimated EF of 60 - 65%. ??2. Right ventricular cavity size is normal, global systolic RV function is normal. ??3. No significant functional valve disease detected. ??4. The ascending aorta is normal for age/sex/bsa with a maximal diameter of 4.2 cm. Anesthesia Evaluation Pt has had prior anesthetic. No history of anesthetic complications ROS/MED HX ENT/Pulmonary: Comment: Slight cough seen by pulmonary 09/23 wheezing and mild shortness of breath with significant exertion - symptoms improved with albuterol (+) sleep apnea, uses CPAP, allergic rhinitis, (-) recent URI Neurologic: (-) no seizures, no CVA and migraines Cardiovascular: (+) Dyslipidemia hypertension--CAD -past PA -stent-2010. 3 Drug Eluting Stent. (-) CHF, orthopnea/PND and arrhythmias METS/Exercise Tolerance: Hematologic: - neg hematologic ROS Musculoskeletal: - neg musculoskeletal ROS GI/Hepatic: - neg GI/hepatic ROS (-) GERD Renal/Genitourinary: (+) renal disease, type: CRI, Endo: (+) Obesity, Psychiatric/Substance Use: - neg psychiatric ROS Infectious Disease: Malignancy: (+) Malignancy, History of Prostate. Other: Physical Exam Airway Mallampati: III TM distance: > 3 FB Neck ROM: limited Mouth opening: > 3 cm Respiratory Devices and Support Dental no notable dental history Cardiovascular cardiovascular exam normal Rhythm and rate: regular and normal Pulmonary pulmonary exam normal breath sounds clear to auscultation OUTSIDE LABS: CBC: No results found for: WBC, HGB, HCT, PLT BMP: No results found for: NA, POTASSIUM, CHLORIDE, CO2, BUN, CR, GLC COAGS: No results found for: PTT, INR, FIBR POC: No results found for: BGM, HCG, HCGS HEPATIC: No results found for: ALBUMIN, PROTTOTAL, ALT, AST, GGT, ALKPHOS, BILITOTAL, BILIDIRECT, ZACK OTHER: No results found for: PH, LACT, A1C, POLLO, PHOS, MAG, LIPASE, AMYLASE, TSH, T4, T3, CRP, SED Anesthesia Plan ASA Status: 3 NPO Status: NPO Appropriate Anesthesia Type: General. - Airway: ETT Induction: Propofol. Maintenance: Balanced. Consents Anesthesia Plan(s) and associated risks, benefits, and realistic alternatives discussed. Questions answered and patient/customer account representative(s) expressed understanding. - Discussed: - Discussed with: Patient Postoperative Care Pain management: IV analgesics. PONV prophylaxis: Ondansetron (or other 5HT-3), Dexamethasone or Solumedrol Comments: Gerson Schofield MD TENANCE WORKER documented in this encounter Miscellaneous Notes Anesthesia Care Transfer Note - Jorge Alberto Garcia APRN AIRPLANE PILOT CHIEF - 10/26/2021 12:13 PM CST Patient: Jayden Crook Procedure: Procedure(s): FLEXIBLE CYSTOSCOPY CRYOTHERAPY OF THE PROSTATE Diagnosis: Neoplasm/cancer (H) [C80.1] Diagnosis Additional Information: No value filed. Anesthesia Type: General Note: Oropharynx: oropharynx clear of all foreign objects and spontaneously breathing Level of Consciousness: awake Oxygen Supplementation: face mask Level of Supplemental Oxygen (L/min / FiO2): 6 Independent Airway: airway patency satisfactory and stable Dentition: dentition unchanged Vital Signs Stable: post-procedure vital signs reviewed and stable Report to RN Given: handoff report given Patient transferred to: PACU Comments: Neuromuscular blockade reversed with sugammadex, spontaneous respirations, adequate tidal volumes, followed commands to voice, oropharynx suctioned with soft flexible catheter, extubated atraumatically, extubated with suction, airway patent after extubation. Oxygen via facemask at 6 liters per minute to PACU. Oxygen tubing connected to wall O2 in PACU, SpO2, NiBP, and EKG monitors and alarms on and functioning, report on patient's clinical status given to ORIENTAL RUG REPAIRER, RN questions answered. Handoff Report: Identifed the Patient, Identified the Reponsible Provider, Reviewed the pertinent medical history, Discussed the surgical course, Reviewed Intra-OP anesthesia mangement and issues during anesthesia, Set expectations for post-procedure period and Allowed opportunity for questions and acknowledgement of understanding Vitals: Vitals Value Taken Time BP 164/94 10/26/21 1209 Temp Pulse 85 10/26/21 1212 Resp 15 10/26/21 1212 SpO2 100 % 10/26/21 1212 Vitals shown include unvalidated device data. Electronically Signed By: Jorge Alberto Garcia APRN CRNA October 26, 2021 12:13 PM TENANCE WORKER documented in this encounter Plan of Treatment Not on filedocumented as of this encounter Procedures Procedure Name Priority Date/Time Associated Comments Diagnosis ANE AIRWAY ETT Routine 10/26/2021 10:22 Results f or this PERFORMABLE AM MAINTENANCE WORKER procedure are i n the results section. documented in this encounter Results ANE AIRWAY ETT PERFORMABLE (10/26/2021 10:22 AM MAINTENANCE WORKER) Narrative Jorge Alberto Garcia APRN CRNA - 10/26/19 10:22 AM MAINTENANCE WORKER Jorge Alberto Garcia APRN CRNA ? 10/26/2021 10:23 AM Airway ? Patient [facility]: [facility] - Operating Room or Procedural Area. ? Procedure Start/Stop Times: 2021 10:07 AM and 10/26/2021 10:07 AM Staff - ? AIRPLANE PILOT CHIEF: Jorge Alberto Garcia APRN CR NA ? Performed By: CRNAIndications and Patient Condition ? Indications for airway management : dontrell-procedural and airway protection ? Induction type:intravenous ? Mask difficulty assessment: 2 - v ent by mask + OA or adjuvant +/- NMBA Final Airway Details ? Final airway type: endotracheal a irway ? Successful airway: ETT - single Endotracheal Airway Details ? ETT size (mm): 8.0 ? Cuffed: yes ? Successful intubation technique: video laryngoscopy ? VL Blade Size: Mazariegos 4 ? Grade View of Cords: 1 ? Adjucts: stylet ? Position: Center ? Measured from: gums/teeth ? Secured at (cm): 24 ? Bite block used: None Post intubation assessment ? Placement verified by: capnometry and equal breath sounds ? Number of attempts at approach: 1 ? Number of other approaches attemp alem: 0 ? Secured with: pink tape ? Ease of procedure: easy ? Dentition: Intact and Unchanged Additional Comments ? Routine dontrell-procedural airway protectio n. Mazariegos 4. 8.0 mm ID endotracheal tube. Gerson Schofield MD [place] ANESTHESIA documented in this encounter Visit Diagnoses Not on filedocumented in this encounter Administered Medications Inactive Administered Medications - up to 3 most recent administrations Medication Order MAR Action Action Date Dose Rate Site ceFAZolin (ANCEF) 1 g vial to Given 10/26/2021 10:03 AM MAINTENANCE WORKER 1 g attach to NS 100 ml bag for ADULT or 50 ml bag for PEDS Routine, Intravenous, PRN, Starting on Ameena 10/26/21 at 1002, Anesthesia Intra-op Given 10/26/2021 10:02 AM MAINTENANCE WORKER 1 g dexamethasone (DECADRON) injection Given 10/26/2021 10:16 AM MAINTENANCE WORKER 4 mg Intravenous, PRN, Administer over 1 Minutes, Starting on Ameena 10/26/21 at 1016, Anesthesia Intra-op ePHEDrine injection Given 10/26/2021 11:15 AM MAINTENANCE WORKER 5 mg Intravenous, PRN, Starting on Ameena 10/26/21 at 1026, Anesthesia Intra-op Given 10/26/2021 10:51 AM MAINTENANCE WORKER 5 mg Given 10/26/2021 10:38 AM MAINTENANCE WORKER 5 mg fentaNYL (PF) (SUBLIMAZE) injection Given 10/26/2021 10:04 AM MAINTENANCE WORKER 100 mcg Intravenous, PRN, Administer over 3-5 Minutes, Starting on Ameena 10/26/21 at 1004, Anesthesia Intra-op lactated ringers infusion New Bag 10/26/2021 11:53 AM MAINTENANCE WORKER at 25 mL/hr, Intravenous, CONTINUOUS, IF patient NOT on dialysis., Pre-procedure, Starting on Ameena 10/26/21 at 0830, Until Ameena 10/26/21 at 1209 New Bag 10/26/2021 9:44 AM MAINTENANCE WORKER 25 mL/hr lidocaine 2% injection (MDV) Given 10/26/2021 10:04 AM MAINTENANCE WORKER 100 mg Other, PRN, Starting on Ameena 10/26/21 at 1004, Anesthesia Intra-op ondansetron (ZOFRAN) injection Given 10/26/2021 11:43 AM MAINTENANCE WORKER 4 mg Intravenous, PRN, Administer over 2-5 Minutes, Starting on Ameena 10/26/21 at 1143, Anesthesia Intra-op phenylephrine (TALAT-SYNEPHRINE) injection Bolus 10/26/2021 11:32 AM MAINTENANCE WORKER 100 mcg Intravenous, CONTINUOUS PRN, Starting on Ameena 10/26/21 at 1014, Anesthesia Intra-op Bolus 10/26/2021 11:15 AM MAINTENANCE WORKER 100 mcg Bolus 10/26/2021 10:51 AM MAINTENANCE WORKER 100 mcg propofol (DIPRIVAN) injection 10 mg/mL v ial Given 10/26/2021 10:04 AM MAINTENANCE WORKER 200 mg Intravenous, PRN, Starting on Ameena 10/26/21 at 1004, Anesthesia Intra-op rocuronium injection Given 10/26/2021 11:02 AM MAINTENANCE WORKER 10 mg Intravenous, PRN, Starting on Ameena 10/26/21 at 1004, Anesthesia Intra-op Given 10/26/2021 10:49 AM MAINTENANCE WORKER 10 mg Given 10/26/2021 10:33 AM MAINTENANCE WORKER 20 mg sugammadex (BRIDION) injection Given 10/26/2021 11:48 AM MAINTENANCE WORKER 200 mg Intravenous, PRN, Starting on Ameena 10/26/21 at 1148, Anesthesia Intra-op documented in this encounter Care Teams Compliance Aide Relationship Specialty Start Date End Date Richar Rivas MD PCP - General Family Medicine 10/03/[address] [address] documented as of this encounter
--- OUTSIDE RECORDS SUMMARY | 2022-06-21 15:15 | XMS_ITS | Encounter Summary ---
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 documented as of this encounter Plan of Treatment Not on filedocumented as of this encounter Visit Diagnoses Not on filedocumented in this encounter Care Teams Critical Care Nurse Practitioner Relationship Specialty Start Date End Date Richar Rivas MD PCP - General Family Medicine 10/03/21 [facility] [address] [place] [place] [address] documented as of this encounter
--- OUTSIDE RECORDS SUMMARY | 2022-06-21 15:15 | XMS_ITS | Clinical Summary ---
:1950 Author Organization [place] Address [address] [place] [address] Care Team Providers Name Role Phone Richar Rivas MD Primary Care Provider Allergies Active Allergy Reactions Severity Noted Date Comments Amoxicillin Rash Low 10/25/2021 Lisinopril Cough 10/25/2021 Medications Medication Sig Dispensed Refills Start Date End Date Status amLODIPine (NORVASC) 5 Take 5 mg by 0 Active MG tablet mouth daily albuterol (PROAIR Inhale 2 puffs 0 Active HFA/PROVENTIL into the lungs HFA/VENTOLIN HFA) 108 every 6 hours (90 Base) MCG/ACT inhaler aspirin 81 MG EC tablet Take 81 mg by 0 Active mouth daily atorvastatin (LIPITOR) Take 40 mg by 0 Active 40 MG tablet mouth daily cefPROZIL (CEFZIL) 500 Take 500 mg by 0 Active MG tablet mouth [address] 0.4 mg 0 Act phoenix (NITROSTAT) 0.4 MG under the tongue sublingual tablet every 5 minutes as needed for chest pain For chest pain place 1 tablet under the tongue every 5 minutes for 3 doses. If symptoms persist 5 minutes after 1st dose call 911. metoprolol succinate ER Take 50 mg by 0 Active (TOPROL-XL) 50 MG 24 hr mouth daily tablet fexofenadine (GRAHAM) Take 180 mg by 0 Active 180 MG tablet mouth daily doxycycline hyclate Take 100 mg by 0 Active (VIBRAMYCIN) 100 MG mouth 2 times capsule daily fish oil-omega-3 fatty Take 2 g by mouth 0 Active acids 1000 MG capsule 2 times daily HYDROcodone-acetaminoph Take 1-2 tablets 5 tablet 0 2 Active en (NORCO) 5-325 MG by mouth every 4 tabletIndications: hours as needed Prostate cancer (H) for moderate to severe pain Immunizations Name Administration Dates Next Due Pneumococcal 23 valent 05/21/2014 Social History Tobacco Use Types Packs/Day Years Used Date Smoking Tobacco: Never Smokeless Tobacco: Never Alcohol Use Standard Drinks/Week Comments Not Currently 0 (1 standard drink = 0.6 oz pure alcoho l) Sex Assigned at Date Recorded Male 10/16/2021 11:49 AM THERAPY COORDINATOR Last Filed Vital Signs Vital Sign Reading Time Taken Comments Blood Pressure 142/89 10/26/2021 2:20 PM THERAPY COORDINATOR Pulse 72 10/26/2021 2:20 PM THERAPY COORDINATOR Temperature 36.2 ??C (97.2 ??F) 10/26/2021 2:20 PM THERAPY COORDINATOR Respiratory Rate 16 10/26/2021 2:20 PM THERAPY COORDINATOR Oxygen Saturation 98% 10/26/2021 2:20 PM THERAPY COORDINATOR Inhaled Oxygen Concentration - - Weight 116.2 kg (256 lb 1.6 oz) 10/26/2021 9:03 AM THERAPY COORDINATOR Height 190.5 cm (6' 3) 10/26/2021 9:03 AM THERAPY COORDINATOR Body Mass Index 32.01 10/26/2021 9:03 AM THERAPY COORDINATOR Plan of Treatment Health Maintenance Due Date Last Done Comments ADVANCE CARE PLANNING 1950 ANNUAL REVIEW OF HM ORDERS 1950 CT COLONOGRAPHY 1950 FIT-DNA (Cologuard) 1950 FIT 1950 FLEX SIG 1950 HEPATITIS B IMMUNIZATION (1 1950 of 3 - 3-dose series) HEPATITIS C SCREENING 1966 AORTIC ANEURYSM SCREENING 2013 (SYSTEM ASSIGNED) FALL RISK ASSESSMENT 2013 MEDICARE ANNUAL WELLNESS 06/06/2021 06/06/2020 VISIT COVID-19 Vaccine (4 - 07/27/2021 06/01/2021, 11/25/2020, Booster for Pfizer series) 11/04/2020 PHQ-2 (once per calendar 09/02/2021 year) INFLUENZA VACCINE (#1) 2022 06/19/2021, 06/08/2020, 06/06/2020, Additional history exists LIPID 06/22/2025 06/22/2020 COLONOSCOPY 03/06/2028 03/06/2018 COLORECTAL CANCER SCREENING 03/06/2028 DTAP/TDAP/TD IMMUNIZATION 05/13/2029 05/13/2019, 11/16/2008 (3 - Td or Tdap) Pneumococcal Vaccine: 65+ Completed 06/24/2015, 05/21/2014 Years ZOSTER IMMUNIZATION Completed 08/05/2019, 06/02/2019, 06/18/2014 IPV IMMUNIZATION Aged Out No longer eligi ble based on patient 's age to complete this topic MENINGITIS IMMUNIZATION Aged Out No longe r eligible based on patient 's age to complete this topic Insurance Payer Benefit Plan / Subscriber ID Effective Phone Address T ype Group Dates MEDICARE MEDICARE [id number] 2013-Prese [phone] ATTN JOHN MS Medicare nt 40 [address] [place] [address] BCBS BCBS OF [place] [id number] 2018-Prese [phone] [address] [address] [address] [place] [address] Care Teams Dock Attendant Relationship Specialty Start Date End Date Richar Rivas MD PCP - General Family Medicine 10/03/21 [facility] [address] [facility] [place] [address]
--- OUTSIDE RECORDS SUMMARY | 2022-06-21 15:16 | XMS_ITS | Encounter Summary ---
:1950 Author Organization [facility] Address [address] [place] [address] Care Team Providers Name Role Phone Unavailable Primary Care Provider Unavailable Encounter Details Date Type Department Care Team Description 02/09/2022 Clinical Communication Department of Nitish Kelly, Radiation Oncology in [place], M.S. [place] [facility] a [address] [facility] [address] [place], [place] [phone] Social History Tobacco Use Types Packs/Day Years Used Date Smoking Tobacco: Never Smokeless Tobacco: Never Alcohol Use Standard Drinks/Week Comments Yes 0 (1 standard drink = 0.6 oz pure alcoho l) Occasional Sex Assigned at Date Recorded Male 02/06/2022 5:15 PM CDT documented as of this encounter Miscellaneous Notes Telephone Encounter - Nitish Kelly M.D., M.S. - 02/09/2022 4:04 PM CDT Radiation Oncology 02/09/22 Jayden Crook Phone Call: I spoke to the patient on the phone today. I discussed that I have contacted Dr. Gomez's team but thusfar have been unable to hear back from him. I will reach out next week once we have a plan set regarding the question of adjuvant therapy. The patient was agreeable with this plan. Nitish Kelly M.D., M.S. documented in this encounter Plan of Treatment Not on filedocumented as of this encounter Visit Diagnoses Not on filedocumented in this encounter
--- OUTSIDE RECORDS SUMMARY | 2022-06-21 15:16 | XMS_ITS | Encounter Summary ---
:1950 Author Organization [facility] Address [address] [place] [address] Care Team Providers Name Role Phone Unavailable Primary Care Provider Unavailable Encounter Details Date Type Department Care Team Description 02/15/2022 Clinical Communication Department of Nitish Kelly, Radiation Oncology in [place], M.S. [facility] a [address] [facility] [address] [place] [id number] Social History Tobacco Use Types Packs/Day Years Used Date Smoking Tobacco: Never Smokeless Tobacco: Never Alcohol Use Standard Drinks/Week Comments Yes 0 (1 standard drink = 0.6 oz pure alcoho l) Occasional Sex Assigned at Date Recorded Male 02/06/2022 5:15 PM CDT documented as of this encounter Miscellaneous Notes Telephone Encounter - Nitish Kelly M.D., M.S. - 02/15/2022 2:16 PM CDT Radiation Oncology 02/15/22 Jayden Crook Phone Call: I spoke to the patient on the phone today. He will follow up with [facility] for PSA and clinical exam on June 07, 2022, approximately 24 weeks after his 45 mg leuprolide injection. I heard from Dr. Gomez's nurse (April Medina) this morning that Dr. Mckeon will be inheriting the patient as Dr. Gomez is retiring, and he is in agreement that adjuvant radiation is not needed. I reviewed this plan with the patient, and that we would be happy to see him in the future should he develop recurrence of his prostate cancer for consideration of salvage treatment. We will not arrange for any follow-up at this time. Nitish Kelly M.D., M.S. documented in this encounter Plan of Treatment Not on filedocumented as of this encounter Visit Diagnoses Not on filedocumented in this encounter
--- OUTSIDE RECORDS SUMMARY | 2022-06-21 15:16 | XMS_ITS | Encounter Summary ---
:1950 Author Organization [facility] Address [address] [place] [address] Care Team Providers Name Role Phone Unavailable Primary Care Provider Unavailable Reason for Visit Appointment Request (Routine) - Closed Specialty Diagnoses / Procedures Referred By Contact Refer red To Contact Radiation Oncology Diagnoses Primary Malignant Neoplasm Of Prostate (HCC) Dave Gomez M.D. [address] [facility] [place] [address] Referral ID Status Reason Start Date Expiration Date Visits Requ ested Visits Authorized [id number] Closed 12/15/2021 12/15/2022 1 1 Encounter Details Date Type Department Care Team Description 02/05/2022 Hospital Encounter Department of Conor Kay Malignant Radiation Oncology [place] Peralta Neoplasm Of Prostate in [place], [address] [place] [address] (HCC) (Primary Dx) [place], [place] [address] [address] [place], [place] [phone] (Work) [phone] Social History Tobacco Use Types Packs/Day Years Used Date Smoking Tobacco: Never Smokeless Tobacco: Never Alcohol Use Standard Drinks/Week Comments Yes 0 (1 standard drink = 0.6 oz pure alcoho l) Occasional Sex Assigned at Date Recorded Male 02/06/2022 5:15 PM CDT documented as of this encounter Last Filed Vital Signs Vital Sign Reading Time Taken Comments Blood Pressure 122/71 02/05/2022 9:03 AM CDT Pulse 63 02/05/2022 9:03 AM CDT Temperature 36.3 ??C (97.4 ??F) 02/05/2022 9:03 AM CDT Respiratory Rate - - Oxygen Saturation - - Inhaled Oxygen Concentration - - Weight 124 kg (272 lb 11.3 oz) 02/05/2022 9:03 AM CDT Height 189 cm (6' 2.41) 02/05/2022 9:03 AM CDT Body Mass Index 34.63 02/05/2022 9:03 AM CDT documented in this encounter Medications at Time of Discharge Medication Sig Dispensed Refills Start Date End Date amLODIPine (NORVASC) 5 mg amlodipine 5 mg tablet 0 08/16/[address] tablet Take 81 mg by mouth 0 03/2012 daily. atorvastatin (LIPITOR) 40 atorvastatin 40 mg 0 mg tablet tablet budesonide-formoteroL Symbicort 160 mcg-4.5 0 (SYMBICORT) 160-4.5 mcg/actuation HFA mcg/actuation inhaler aerosol inhaler docosahexaenoic acid-epa Take 2 g by mouth. 0 120-180 mg capsule doxycycline hyclate Take 50 mg by mouth. 0 2020 (VIBRA-TABS) 100 mg tablet fexofenadine (GRAHAM) Take 180 mg by mouth 0 10/2021 180 mg tablet daily. metoprolol succinate metoprolol succinate 0 08/16 (TOPROL-XL) 50 mg 24 hr ER 50 mg tablet tablet,extended release 24 hr documented as of this encounter Consult Notes Nitish Kelly M.D., M.S. - 02/05/2022 9:15 AM CDT RADIATION ONCOLOGY CONSULTATION Supervising Dairy Technician: Dr. Conor Kay Referring Provider: Dave Gomez M.D. Primary Care Provider: Dr. Richar Rivas Home address: [address] [place] [id number] SUBJECTIVE History of present illness Mr. Jayden Crook is a 71 y.o. male with stage IIC (cT1c, cN0, cM0, PSA: 7, Grade Group: 3) prostate adenocarcinoma with a high risk Decipher score of 0.85 s/p cryotherapy and on androgen deprivation therapy who presents in consultation for consideration of radiation treatment. The patient's oncologic history is as follows: Oncology History Primary Malignant Neoplasm Of Prostate (HCC) 12/09/2012 Other 12/09/2012: PSA 2.21 ng/mL 06/22/2020: PSA 5.20 ng/mL 07/13/2020: PSA 5.28 ng/mL 08/22/2020 Biopsy/Pathology Prostate biopsy was performed by Dr. Rojas. MELVIN was normal. Pathology of the right lateral base demonstrated adenocarcinoma, Marisela 3+3=6, involving 5% of the length of the core, perineural invasion not seen. Pathology of the left lateral apex demonstrated high-grade prostatic intraepithelial neoplasia, focal. The remainder of the prostate biopsies demonstrated benign prostatic tissue. 08/30/[address] Rojas who discussed treatment options for low risk prostate cancer. Plan for follow-up in 6 months with PSA. 02/15/2021 Other PSA 7.02 ng/mL 03/29/2021 Imaging MRI of the pelvis prostate demonstrated a prostate volume of 73 cc. Anterior 3.9 x 1.6 x 2.0 cm irregular area in the transition zone abutting the anterior fibromuscular stroma with capsular bulging. The lesion extended from the 10:00 a.m. to the 2 o'clock position. Background enlarged heterogeneous nodular transition zone. No suspicious lesions in the peripheral zone. PI-RADS 5. Anterior bulging cannot exclude early capsular invasion. No significant or enlarged nodes. No other bony or soft tissue abnormalities identified. 05/12/2021 Biopsy/Pathology Surveillance UroNav prostate biopsy was performed by Dr. Dave Gomez. Prostate volume was 76 g withmoderate to large intravesical protrusion. Pathology of lesion 1 demonstrated adenocarcinoma, Marisela 4+3=7, involving 5-50% of the length of 2 cores, perineural invasion not seen. The remaining prostate biopsies (6) demonstrated benign prostatic tissue. 06/13/[address] Gomez who recommended initiating androgen deprivation therapy, proceeding with abone scan, and obtaining decipher genomic assessment. Reassess in 3-4 weeks for consideration of cryotherapy in 2-3 months followed by IMRT at a later date. 06/13/2021 - Biological/Targeted/Hormone Therapy 06/13/2021: Eligard 45 mg (6 month) injection 12/13/2021: Eligard 45 mg (6 month) injection 06/20/2021 Imaging Nuclear medicine whole-body bone scan demonstrated scattered degenerative activity within the appendicular skeleton. Likely that the foci of activity in the thoracolumbar spine were degenerative in nature; however, confirmation with plain radiographs was recommended. The examination was otherwise negative. 08/16/2021 Other 08/16/2021: PSA 0.23 ng/mL Genetic Testing and Tumor Genotyping High risk Decipher score 0.85. Risk of mets 6.5% (5 year) and 16.0% (10 year); risk of mortality 18.2% (15 year). 08/23/2021 Imaging Transrectal ultrasound demonstrated that the prostate gland volume was 52 g, decreased in size. It was discussed that the patient was now an appropriate candidate for cryoablation. 10/26/2021 Surgery and Procedures Cryoablation of the prostate was performed by Dr. Gomez. 12/13/2021 Other PSA less than 0.04 ng/mL Appointment with Dr. Gomez who discussed continuing neoadjuvant ADT for at least 1 year in duration. Recommended for the patient to strongly consider adjuvant IMRT. Referral to Radiation Oncology. The patient can then follow up with a local urologist in [place] ([place] or [place]). In the clinic today, Mr. Jayden Crook reports that he is well with no acute concerns. Following recovery from cryotherapy, he reports his obstructive symptoms have improved. He now has nocturiax1 and reports a good urinary stream. He denies any recent hematuria or incontinence. He has 1-2 bowel movements per day and denies any blood in the stool. His last colonoscopy was less than five yearsago and reportedly was normal. He is experiencing hot flashes 2-3x per hour, although they are not waking him from sleep. He has chronic fatigue but that has not worsened much recently. He reports approximately 10-15 lb weight gain since starting ADT. He is active and works out 4x per week. He was not sexually active before androgen deprivation therapy. Patient reported symptom screen Fatigue (scale: 0 = no fatigue; 10 = worst fatigue you can imagine): 7 Pain (scale: 0 = no pain; 10 = worst pain you can imagine): 0 Overall quality of life (scale: 0 = as bad as can be; 10 = as good as can be): 9 AUA-SS: 9 IIEF-5: 5 Past medical history Pertinent past medical history, past surgical history, medications, allergies, social history, and family history were reviewed. Pertinent past medical history includes CAD w/ [place] s/p stent placement, HLD, HTN. The patient does not have a history of lupus, scleroderma or ulcerative colitis. The patienthas no implanted medical devices. Social history is significant for never smoker. Prior history of radiation None. Review of systems Review of systems as noted in HPI. OBJECTIVE Vitals Weight: 123.7 kg, Temperature: 97.4 degrees Farenheit, Pulse: 63 beats per minute and Blood pressure: 122/71 mmHg Physical exam ECO Constitutional: Pleasant, in no acute distress, overweight, ambulates without an assistive device. Respiratory: CTAB, no r/r/w, normal work of breathing on room air Cardiovascular: RRR, no m/r/g ASSESSMENT AND PLAN #1 Stage IIC (cT1c, cN0, cM0, PSA: 7, Grade Group: 3) prostate adenocarcinoma with a high risk Decipher score of 0.85 #2 Androgen deprivation therapy initiated on June 13, 2021 with Eligard 45 mg injection and another Eligard 45 mg injection on December 13, 2021 with no further therapy planned #3 Cryotherapy of the prostate on October 26, 2021 #4 Erectile dysfunction preceding androgen deprivation therapy Mr. Jayden Crook is a 71 y.o. male with stage IIC (cT1c, cN0, cM0, PSA: 7, Grade Group: 3) prostate adenocarcinoma with a high risk Decipher score of 0.85 s/p cryotherapy and on androgen deprivation therapy who is seen in Radiation Oncology for a discussion of radiation treatment. I have reviewed the pertinent history, laboratory, and imaging studies. The patient has undergone initial local therapy treatment for his unfavorable- intermediate risk prostate cancer with cryotherapy.His most recent PSA was undetectable, and he will complete 12 months of ADT. On initial diagnosis hehad no evidence of locoregional or distant metastatic disease on pelvic MRI and bone scan. We reviewed that his high risk Decipher score does suggest a higher likelihood of developing metastatic disease. We discussed that treating the prostate with external beam radiotherapy adjuvantly following cryotherapy is not standard of care, and there is no guiding randomized evidence to suggest a benefit. Radiation therapy to the prostate and elective pelvic lymph nodes potentially could provide improved locoregional control, particularly if there is concern for the lesion being undertreated with cryotherapy.The patient could incur additional toxicity from EBRT, particularly since the time interval since cryotherapy is relatively short (3 months). We discussed that we would recommend performing a cystoscopy and colonoscopy in advance to identify any damage from cryotherapy. Further, if we were to treat the patient, we would recommend treating with conventional fractionation to 7800 cGy in 39 fractions with consideration of hydrogel spacer placement. We discussed an alternative to adjuvant EBRT would be to reserve radiation for salvage treatment should he develop a PSA failure. Advantages of this strategy would be allowing for more time after cryotherapy to allow for healing and potentially reduce the risk of toxicities. Further, the patient may have received adequate treatment with no further need for radiation. I discussed the logistics as well as the acute and chronic side effects associated with treatment indetail including acute side effects of urinary frequency and urgency, dysuria, bowel frequency and urgency, diarrhea, gaseous bloating and discomfort, radiation dermatitis, loss of pubic hair, fatigue, nausea, vomiting. Long-term side effects include common mild increase in urinary and bowel frequency, as well as more rare side effects including radiation cystitis (5% risk or less), radiation proctitis (5% or less risk), urethral stenoses requiring dilatation (1% risk or less), fistula formation (less than 1% risk), increasing arthritis of the hips, small bowel obstruction, and a very small risk ofsecondary malignancy. The patient is also likely to experience erectile dysfunction. We will contact the patient's treating urologist, Dr. Gomez, to gain further insight and complete multidisciplinary recommendations. If the patient does not pursue adjuvant treatment, then we will plan to see in approximately 7 months, which will be approximately 3 months after finishing ADT. All questions were answered to the patient's satisfaction. Our departmental contact information was provided to the patient who was encouraged to contact the Department of Radiation Oncology with further questions or concerns. Dr. Conor Kay is the inside solar sales consultant; please see attestation for further details. Nitish Kelly M.D., M.S. Associated attestation - Conor Kay M.D. - 02/05/2022 3:25 PM CDT I saw and evaluated the patient and participated in the fuller portions of the service. I reviewed the documentation of Nitish Kelly M.D. and agree with his findings and plan. In brief, Mr. Jayden Crook is a 71 y.o. male with unfavorable intermediate risk prostate cancer that is been treated by cryotherapy and androgen deprivation therapy. I am asked by Dr. Gomez to evaluate the patient for adjuvant radiotherapy. His oncologic history is well detailed in Dr. Kelly' note. PSA of 7.02 ng/mL on February 15, 2021 prompted an MRI which revealed a 73 cc prostate and a 3.9 cm lesion in the anterior prostate. Biopsy was performed by Dr. Gomez on May 12, 2021 revealing Preston 4 + 3 disease in 2 cores. He received a six-month Eligard injection on June 13, 2021 with an appropriate decline in his PSA to 0.23 ng/mL on August 16, 2021. He had a high risk decipher score of 0.85. He was treated with cryotherapy by Dr. Gomez on October 26, 2021. His most recent PSA onDecember 13, 2021 was undetectable. He received another Eligard 6 month injection on the same date. HisECOG performance status is 0. OBJECTIVE PHYSICAL EXAM General: Patient is awake, alert, and oriented to person, place, and time. No apparent distress. He is here today with his [place]. Remainder per Dr. Kelly. DIAGNOSTICS Reviewed the patient's pathology reports and imaging. ASSESSMENT / PLAN #1 Stage IIC (cT1c, cN0, cM0, PSA: 7, Grade Group: 3) prostate adenocarcinoma with a high risk Decipher score of 0.85 #2 Androgen deprivation therapy initiated on June 13, 2021 with Eligard 45 mg injection and another Eligard 45 mg injection on June 14, 2022 with no further therapy planned #3 Cryotherapy of the prostate on October 26, 2021 I had a detailed discussion with the patient and his regarding the risks, benefits, and alternatives of radiotherapy in this setting. We discussed the fact that there is very little data for adjuvant radiotherapy following definitive cryotherapy. I can identify only 1 paper in which 3 patients were treated with adjuvant treatment following cryotherapy (Roxy et al., Urology, 2008). They all did well with minimal toxicity and all the patient's treated adjuvantly had PSA control at 36 months. I see two options: The first would be to follow him closely and treat him with salvage therapy if his PSA were to rise off of androgen deprivation therapy; and the second would be to treating with adjuvantradiotherapy now. If I were to treat him adjuvantly, I would likely utilize conventional fractionation treating to a dose of 76-80 Gy in 2 Gy fractions utilizing IMRT targeting the prostate and seminalvesicles. IMRT is indicated so as to spare high radiation dose to the adjacent bowel, bladder, and hips. If we do proceed with adjuvant radiotherapy, we would obtain colonoscopy and cystoscopy prior toinitiation of treatment to be sure that there is not any injury to those areas from cryotherapy. I discussed the logistics as well as the acute and chronic side effects associated with treatment indetail. We also reviewed the side effects of androgen deprivation therapy. For a complete listing ofthese, please see Dr. Kelly' note. After this discussion, I provided the patient with a written summary of my recommendations. His questions and those of his spouse were answered to their verbalized satisfaction. We will communicate with Dr. Gomez to further discuss the patient's plan of care. We will contact the patient by phone once wehave spoke with Dr. Gomez or his team. My thanks to Drs. Gomez, Bob, and Rob for the opportunity to participate in this patient's care. EDUCATION Ready to learn, no apparent learning barriers were identified; learning preferences include listening. Explained diagnosis and treatment plan; patient expressed understanding of the content. CONSENT Discussed the risks, benefits, alternatives, and the necessity of other members of the healthcare team participating in the procedure. All questions answered and consent given. I have spent 30 minutes with this patient today with 30 minutes spent in counseling the patient. Signed by: Conor Kay M.D. 02/05/2022 3:24 PM CDT [facility] [address] [place] [address] documented in this encounter Miscellaneous Notes Addendum Note - Danette Payne C.NReji - 02/05/2022 9:15 AM CDT Encounter addended by: Danette Payne C.N.A. on: 02/06/2022 7:12 AM Actions taken: Letter saved documented in this encounter Plan of Treatment Not on filedocumented as of this encounter Visit Diagnoses Diagnosis Primary Malignant Neoplasm Of Prostate ( HCC) - Primary documented in this encounter
--- OUTSIDE RECORDS SUMMARY | 2022-06-21 15:16 | XMS_ITS | Clinical Summary ---
:1950 Author Organization [facility] Address [address] [place] [address] Care Team Providers Name Role Phone Unavailable Primary Care Provider Unavailable Source Comments Patient records contain information from all sites at [facility]. For routine questions regarding patient records, call [phone] during business hours, M-F 8:00 AM - 5:00 PM Central Time. Record requests for emergency care only can be directed to [phone] at any time.[facility] Allergies Active Allergy Reactions Severity Noted Date Comments Amoxicillin Rash Low 10/06/2007 facial 1998 Lisinopril Cough 09/08/2020 Medications Medication Sig Dispensed Refills Start Date End Date Status budesonide-formoteroL Symbicort 160 0 10/02/2021 Active (SYMBICORT) 160-4.5 mcg-4.5 mcg/actuation inhaler mcg/actuation HFA aerosol inhaler amLODIPine (NORVASC) 5 amlodipine 5 mg 0 08/16/2021 Active mg tablet tablet aspirin [address] Take 81 mg by 0 10/09/2011 Active tablet mouth daily. atorvastatin (LIPITOR) atorvastatin 40 mg 0 08/16/20 21 Active 40 mg tablet tablet docosahexaenoic Take 2 g by mouth. 0 Active acid-epa 120-180 mg capsule metoprolol succinate metoprolol 0 08/16/2021 Active (TOPROL-XL) 50 mg 24 succinate ER 50 mg hr tablet tablet,extended release 24 hr doxycycline hyclate Take 50 mg by 0 08/16/2021 Active (VIBRA-TABS) 100 mg mouth. tablet fexofenadine (GRAHAM) Take 180 mg by 0 09/04/2021 Active 180 mg tablet mouth daily. Active Problems Problem Noted Date Primary Malignant Neoplasm Of Prostate 02/01/2022 Cancer Staging: Clinical stage from 05/12: Stage IIC (cT1c, cN0, cM0, PSA: 7, Grade Group: 3) - Unsigned Immunizations Name Administration Dates Next Due DTaP (Infanrix, [employer]) 11/16/2008 H1N1 All Forms 07/27/2009 Social History Tobacco Use Types Packs/Day Years Used Date Smoking Tobacco: Never Smokeless Tobacco: Never Alcohol Use Standard Drinks/Week Comments Yes 0 (1 standard drink = 0.6 oz pure alcoho l) Occasional Sex Assigned at Date Recorded Male 02/06/2022 5:15 PM CDT Last Filed Vital Signs Vital Sign Reading [...] Mass Index 34.63 02/05/2022 9:03 AM CDT Plan of Treatment Health Maintenance Due Date Last Done Comments CT Colonography 1950 Cologuard 1950 Colonoscopy 1950 Colorectal Cancer Surveillance 1950 Hepatitis C Screening 1950 Depression Screening (Annual 09/02/2021 PHQ-2) Fall Risk Screen (Annual) 09/02/2021 COVID-19 Vaccine (5 - Booster for 02/21/2022 12/27/2021, , Pfizer series) 11/25/2020, Additional history exists Influenza Vaccine (#1) 2022 06/19/2021, 06/08/2020, 06/06/2020, Additional history exists Fasting Glucose for Diabetes 09/27/2024 09/27/2021, 021, Screening 05/26/2021, Additional history exists DTaP,Tdap,and Td Vaccines (3 - Td 05/13/2029 05/13/2019, , or Tdap) 11/16/2008 Pneumococcal vaccine (65+ years) Completed 06/24/2015, Zoster Vaccines Completed 08/05/2019, 06/02/2019, 06/18/2014 Insurance Payer Benefit Plan Subscriber ID Effective Phone Address Typ e / Group Dates MEDICARE MEDICARE A [id number] 2013-Prese [address] [place] [address] [facility] [id number] 2018-Prese [phone] [address] Indemnity [facility] [place] [id number] [place] [address]
--- OUTSIDE RECORDS SUMMARY | 2022-06-21 15:16 | XMS_ITS | Clinical Summary ---
:1950 Author Organization [employer] llian Affiliates [place] [address] Care Team Providers Name Role Phone Richar Rivas MD Primary Care Provider Ambrosio Lizarraga MD Unavailable Allergies Active Allergy Reactions Severity Noted Date Comments Amoxicillin Rash 10/06/2007 facial 1998 Lisinopril Cough 09/08/2020 Medications Medication Sig Dispensed Refills Start Date End Date Status docosahexanoic Take 1 62 capsule 11 11/12/2010 Act [place] acid-eicosapent capsule by (MAXEPA; FISH OIL) mouth 2 times capsule daily. aspirin enteric Take 1 tablet 0 10/09/2011 Active coated 81 mg tablet by mouth once daily with a meal. nitroglycerin Place 1 25 tablet. 3 08/16/2021 Acti ve (Nitrostat) 0.4 mg Tablet (0.4 sublingual mg) under the tabletIndications: tongue every Coronary artery 5 minutes if disease involving needed for [place] coronary Chest Pain. artery of [place] Wait until heart without they call for angina pectoris this. fexofenadine Take 180 mg 0 09/04/2021 Acti ve (GRAHAM) 180 mg by mouth once tablet daily. Do not crush or chew. budesonide-formoter Inhale 2 10.2 g 11 10/02/2021 Active oL (Symbicort) Puffs by 160-4.5 mouth 2 times mcg/actuation daily. (160-4.5 mcg each actuation) inhalerIndications: Asthma, unspecified asthma severity, unspecified whether complicated, unspecified whether persistent CPAPIndications: CPAP machine 1 Each 11 05/08/2022 Active Obstructive sleep for home use apnea at pressure 4-15cm/H2O, full face mask x1/3month with a full face cushion x1/mo amLODIPine Take 1 Tablet 90 Tablet 3 06/06/2022 Acti ve (NORVASC) 5 mg (5 mg) by tabletIndications: mouth once HTN (hypertension) daily. atorvastatin Take 1 Tablet 90 Tablet 3 06/06/2022 Ac tive (LIPITOR) 40 mg (40 mg) by tabletIndications: mouth at Coronary artery bedtime. disease involving [place] coronary artery of [place] heart without angina pectoris, Hyperlipidemia with target LDL less than 70 doxycycline Take 0.5 50 tablet. 4 06/06/2022 Active (VIBRAMYCIN) 100 mg Tablets (50 tabletIndications: mg) by mouth Rosacea once daily. This is the correct dose. metoprolol Take 1 Tablet 90 Tablet 3 06/06/2022 Acti ve succinate (TOPROL (50 mg) by XL) 50 mg mouth once sustained-release daily. tabletIndications: Coronary artery disease involving [place] coronary artery of [place] heart without angina pectoris amLODIPine Take 1 Tablet 90 Tablet 3 08/16/2021 06/04/20 Disc ontinued (NORVASC) 5 mg (5 mg) by 22 tabletIndications: mouth once HTN (hypertension) daily. atorvastatin Take 1 Tablet 90 Tablet 3 08/16/2021 06/04/20 Di scontinued (LIPITOR) 40 mg (40 mg) by 22 tabletIndications: mouth at Coronary artery bedtime. disease involving [place] coronary artery of [place] heart without angina pectoris, Hyperlipidemia with target LDL less than 70 doxycycline Take 0.5 50 tablet. 4 08/16/2021 06/06/20 Discon tinued (VIBRAMYCIN) 100 mg Tablets (50 22 (Reorder tabletIndications: mg) by mouth (E-cancel not Rosacea once daily. sent)) This is the correct dose. metoprolol Take 1 Tablet 90 Tablet 3 08/16/2021 06/04/20 Disc ontinued succinate (TOPROL (50 mg) by 22 XL) 50 mg mouth once sustained-release daily. tabletIndications: Coronary artery disease involving [place] coronary artery of [place] heart without angina pectoris metoprolol TAKE ONE 90 Tablet 3 06/04/2022 06/06/20 Disconti nued succinate (TOPROL TABLET BY 22 (R eorder XL) 50 mg MOUTH ONCE (E-cancel not sustained-release DAILY se nt)) tabletIndications: Coronary artery disease involving [place] coronary artery of [place] heart without angina pectoris atorvastatin TAKE ONE 90 Tablet 3 06/04/2022 06/06/20 Discon tinued (LIPITOR) 40 mg TABLET BY 22 (Reo rder tabletIndications: MOUTH DAILY (E-cancel not Coronary artery AT BEDTIME sen t)) disease involving [place] coronary artery of [place] heart without angina pectoris, Hyperlipidemia with target LDL less than 70 amLODIPine TAKE ONE 90 Tablet 3 06/04/2022 06/06/20 Disconti nued (NORVASC) 5 mg TABLET BY 22 (Reor paradise tabletIndications: MOUTH ONCE (E-cancel not HTN (hypertension) DAILY s ent)) Active Problems Problem Noted Date Prostate cancer 08/16/2021 Hyperplastic colon polyp 03/07/2018 Overview: Colonoscopy 03/2018 polyp, repeat in 10 y ears CANDIE 10/06/2014 AHI-16, all supine REM non-supine was 11 10/18/2014 CKD (chronic kidney disease) stage 3, GFR 30-59 ml/min 12/17/2012 Hyperlipidemia LDL goal < 70 12/27/2010 CAD (coronary artery disease), [place] coronary artery 12/27/2010 Acute myocardial infarction 11/10/2010 Hypertension 11/10/2010 Unspecified sinusitis (chronic) 10/19/2010 Special Screening for Malignant Neoplasm of Prostate 0 11/16/2008 Rosacea 10/06/2007 Allergic rhinitis, cause unspecified Resolved Problems Problem Noted Date Resolved Date Other and unspecified hyperlipidemia 10/06/2007 Encounters Date Type Specialty Care Team Description 06/07/2022 Telephone Cardiology, Anw Referral 06/07/2022 Orders Only Richar Rivas <No scans att ached> MD Maxx 06/06/2022 Office Visit Richar Rivas Medicare KASIE ISAI Lilly MD (subsequent) Vi sit (71 year old male) 06/06/2022 Travel 06/03/2022 Travel 06/03/2022 Refill Richar Rivas Refill Requlondon Lilly MD (Metoprolol Suc cinate, Atorvastatin, A mlodipine) 05/08/2022 Office Visit Vicente Hayes MD Sleep Follow -up (CPAP) 05/08/2022 Travel 05/05/2022 Travel 04/20/2022 Ancillary Procedure 04/20/2022 Office Visit Richar Rivas Follow Up (6 week finger MD Maxx follow up); [employer] ication List Update (Re quest removal of albbroderick terol) 04/20/2022 Travel from Last 3 Months Immunizations Name Administration Dates Next Due COVID-19 vaccine (FloQast 12/27/2021 30mcg/0.3mL) 12YO+ KAREN-SUCROSE PF, MDV COVID-19 vaccine (FloQast 11/25/2020, 11/04/2020 30mcg/0.3mL) PF, MDV Influenza A (H1N1), Inactivated 07/27/2009 Influenza A (H1N1), Live Intranasal 07/27/2009 Influenza, High-dose Inactivated 06/06/2020, 06/12/2017, , 05/21/2014 Influenza, High-dose Quadrivalent 06/19/2021 Inactivated Influenza, IIV3 (Age 6-35 mos) 06/22/2011 Influenza, IIV3 (Age >=3 years) 06/16/2013, 06/27/2012, 06/03, 06/02/2010 Influenza, IIV4 06/19/2016 Influenza, Inactivated AIIV4 (Age 65+ 06/08/2020 Years) Preserv Free Influenza, Inactivated IIV3 (Age 65+ 05/13/2019, 06/18/2018 Years) Preserv Free Pneumococcal Poly,23-Valent 05/21/2014 (Pneumovax) Pneumococcal conj 13-Valent (Prevnar 06/24/2015 13) Tdap 05/13/2019, 11/16/2008, 11/16/2008 Zoster (Shingrix-RZV, recombinant) 08/05/2019, 06/02/2019 Zoster (Zostavax-ZVL, live) 06/18/2014 Family History Medical History Relation Name Comments Hypertension Father Other Father dementia develop ed at age 80, at age 90 Heart Disease Mother at age 84 Other Mother short term memor y loss; [place] Pneumonia Mother of Pneumoni a and Dementia at 96 Other Sister polio (not much contact w family) Relation Name Status Comments Father Mother Sister Social History Tobacco Use Types Packs/Day Years Used Date Never Smoker Smokeless Tobacco: Never Used Tobacco Cessation: Counseling Given: Yes Alcohol Use Standard Drinks/Week Comments No 0 (1 standard drink = 0.6 oz pure alcoho l) Sex Assigned at Date Recorded Not on file COVID-19 Exposure Response Date Recorded In the last 10 days, have you been in contact with No / Unsu re 06/06/2022 9:04 AM CDT someone who was confirmed or suspected to have Coronavirus/COVID-19? Obstetrics History Last Filed Vital Signs Vital Sign Reading Time Taken Comments Blood Pressure 134/74 06/06/2022 9:37 AM CDT Pulse 58 06/06/2022 9:17 AM CDT Temperature 36.4 ??C (97.6 ??F) 04/20/2022 7:34 AM CDT Respiratory Rate 16 12/19/2021 12:37 PM CDT Oxygen Saturation 98% 06/06/2022 9:17 AM CDT Inhaled Oxygen Concentration - - Weight 122.5 kg (270 lb 1.6 oz) 06/06/2022 9:17 AM CDT Height 188 cm (6' 2) 06/06/2022 9:17 AM CDT Body Mass Index 34.68 06/06/2022 9:17 AM CDT Plan of Treatment Upcoming Encounters Date Type Specialty Care Team Description 07/24/2022 Office Visit Mckayla Briseno MD [id number] [place] [address] (Wo rk) Health Maintenance Due Date Last Done Comments COVID-19 vaccine series (5 - 02/21/2022 12/27/2021, 021, Booster for Pfizer series) 11/25/2020, Additiona l history exists Influenza for age 65+ 05/03/2022 06/19/2021, 06/08/2020, 06/06/2020, Additional history exists BMI (ht and wt on same day) for 06/06/2023 06/06/2022, 12/01, age 18+ 09/27/2021, Additional history exists Medicare Wellness for age 65+ 06/06/2023 06/06/2022, 2019, 05/13/2019, Additional history exists Depression screening for age 12+ 06/07/2023 06/07/2022, 01/2022, 06/06/2022, Additional history exists Lipids for age 45-75 06/06/2027 06/06/2022, 05/26/2021, 06/22/2020, Additional history exists Colonoscopy through age 75 03/06/2028 03/06/2018, 8, 03/07/2010 [facility] Tetanus booster 05/13/2029 05/13/2019, 11/16/2008, 11/16/2008 Pneumococcal series for age 65+ Completed 06/24/2015, 05/03 Tdap Completed 05/13/2019, 11/16/2008, 11/16/2008 Zoster (shingles) series for age Completed 08/05/2019, 09/2018, 50+ 06/18/2014 Hepatitis C screening for age Completed 06/06/2022 18-79 Procedures Procedure Name Priority Date/Time Associated Comments Diagnosis CBC WITH AUTO Routine 06/06/2022 10:10 Rosacea Results fo r this DIFFERENTIAL AM CDT procedure are i n the results section. VITAMIN D 25 Routine 06/06/2022 10:10 Vitamin D Results for this (DEFICIENCY) AM CDT deficiency procedure are i n the results section. LIPID PANEL W REFLEX Routine 06/06/2022 10:10 Coronary artery Results for this MEASURED LDL AM CDT disease involving procedure are in [place] coronary the results artery of [place] section. heart without angina pectoris Hyperlipidemia LDL goal < 70 BASIC METABOLIC PANEL Routine 06/06/2022 10:10 HTN (hypertensi on) Results for this AM CDT procedure are i n the results section. ALT (SGPT) Routine 06/06/2022 10:10 Rosacea Results for this AM CDT procedure are i n the results section. CBC WITH AUTO Routine 06/06/2022 10:10 Rosacea Results fo r this DIFFERENTIAL AM CDT procedure are i n the results section. ANTI HCV Routine 06/06/2022 10:10 Need for hepatitis Resul ts for this AM CDT C screening test procedure a re in the results section. SCAN-DIAGNOSTIC 05/07/2022 12:00 Results for this REPORT AM CDT procedure are i n the results section. XR FINGER 3 VIEWS Routine 04/20/2022 8:04 AM Closed displaced Results for this RIGHT CDT fracture of distal procedure are in phalanx of right the results middle finger with section. routine healing, subsequent encounter from Last 3 Months Results CBC WITH AUTO DIFFERENTIAL (06/06/2022 10:10 AM CDT) P athologist Signature WHITE BLOOD 6.8 4.5 - 11.0 06/06/2022 [facility] COUNT thou/cu mm 10:22 AM [facility] RED BLOOD COUNT 4.69 4.30 - 06/06/2022 [facility] 5.90 10:22 AM [facility] mil/cu mm CLINIC HEMOGLOBIN 14.4 13.5 - 06/06/2022 [facility] 17.5 g/dL 10:22 AM [facility] HEMATOCRIT 41.9 37.0 - 06/06/2022 [facility] 53.0 % 10:22 AM [facility] MCV 89 80 - 100 06/06/2022 [facility] fL 10:22 AM [facility] MCH 30.7 26.0 - 06/06/2022 [facility] 34.0 pg 10:22 AM [facility] MCHC 34.4 32.0 - 06/06/2022 [facility] 36.0 g/dL 10:22 AM [facility] RDW 13.2 11.5 - 06/06/2022 [facility] 15.5 % 10:22 AM [facility] PLATELET COUNT 195 140 - 440 06/06/2022 [facility]/cu mm 10:22 AM [facility] MPV 10.0 6.5 - 11.0 06/06/2022 [facility] fL 10:22 AM [facility] % NEUT 62.5 % 06/06/2022 [facility] 10:22 AM [facility] % LYMPH 27.7 % 06/06/2022 [facility] 10:22 AM [facility] % MONO 6.6 % 06/06/2022 [facility] 10:22 AM [facility] % EOS 2.8 % 06/06/2022 [facility] 10:22 AM CDT [facility] % BASO 0.4 % 06/06/2022 [facility] 10:22 AM CDT [facility] ABSOLUTE 4.2 1.7 - 7.0 06/06/2022 [facility] NEUTROPHILS thou/cu mm 10:22 AM CDT [facility] ABSOLUTE 1.9 0.9 - 2.9 06/06/2022 [facility] LYMPHOCYTES thou/cu mm 10:22 AM CDT [facility] ABSOLUTE 0.5 <0.9 06/06/2022 [facility] MONOCYTES thou/cu mm 10:22 AM T [facility] ABSOLUTE 0.2 <0.5 06/06/2022 [facility] EOSINOPHILS thou/cu mm 10:22 AM T [facility] ABSOLUTE 0.0 <0.3 06/06/2022 [facility] BASOPHILS thou/cu mm 10:22 AM T [facility] Specimen Anatomical Collection Method / Collection Time Recei alexx Time (Source) Location / Volume Laterality Blood BLOOD SPECIMEN / Venipuncture / 06/06/2022 10:10 06/06 Unknown Unknown AM CDT 10:13 AM CDT Richar Rivas MD HEMATOLOGY Performing Organization Address City/State/ZIP Code Phon e Number [facility] [address] [place] [address] (ABNORMAL) LIPID PANEL W REFLEX MEASURED LDL (06/06/2022 10:10 AM CDT) [facility] Method Time Signature CHOLESTEROL,TOTAL 149 100 - 199 06/07/2022 [facility] mg/dL 4:04 AM CDT [facility] TRIGLYCERIDES 149 <150 06/07/2022 [facility] mg/dL 4:04 AM CDT [facility] HDL CHOLESTEROL 34 (L) >40 mg/dL 06/07/2022 [facility] 4:04 AM CDT [facility] NON-HDL 115 <145 06/07/2022 [facility] CHOLESTEROL mg/dl 4:04 AM CDT [facility] CHOL/HDL RATIO 4.38 <4.50 06/07/2022 [facility] 4:04 AM CDT [facility] LDL CHOLESTEROL 85 <=130 06/07/2022 [facility] mg/dL 4:04 AM CDT [facility] VLDL CHOLESTEROL 30 <=30 06/07/2022 [facility] mg/dL 4:04 AM CDT [facility] PROVIDER ORDERED RANDOM 06/07/2022 [facility] STATUS 4:04 AM CDT [facility] Specimen Anatomical Collection Method / Collection Time Recei alexx Time (Source) Location / Volume Laterality Blood BLOOD SPECIMEN / Venipuncture / 06/06/2022 10:10 06/06 Unknown Unknown AM CDT 10:13 AM CDT Richar Rivas MD CHEMISTRY Performing Organization Address City/[facility] Phon e Number [facility] [address] [place] [address] [facility] [address] LABORATORY VITAMIN D 25 (DEFICIENCY) (06/06/2022 10:10 AM CDT) athologist Signature VITAMIN D 45.6 30.0 - 06/07/2022 [facility] TOTAL 80.0 ng/mL 4:20 AM CDT [facility]OR[facility] Specimen Anatomical Collection Method / Collection Time Recei alxex Time (Source) Location / Volume Laterality Blood BLOOD SPECIMEN / Venipuncture / 06/06/2022 10:10 06/06 Unknown Unknown AM CDT 10:13 AM CDT Narrative [facility] LABORATORY-[facility]EN[facility]AL LABORAT ORY - 06/07/2022 4:20 AM CDT Deficiency: ? <20 ng/mL Insufficiency: ?20-29 ng/mL Sufficiency: ?30-80 ng/mL Possible Toxicity: ??>80 ng/mL Based on [place] [facility] recommend ations Richar Rivas MD SEND OUTS Performing Organization Address City/[facility] Phon e Number [facility] [address] [place] [address] [facility] [address] LABORATORY ANTI HCV (06/06/2022 10:10 AM CDT) [facility] gist Method Time Signature HEPATITIS C Non-Reacti Non-Reacti 06/07/2022 [facility] ANTIBODY ve ve 4:24 AM CDT [facility] Comment: Antibodies to HCV not detected; does not exclude the possibility of exposure to HCV. Specimen Anatomical Collection Method / Collection Time Recei alexx Time (Source) Location / Volume Laterality Blood BLOOD SPECIMEN / Venipuncture / 06/06/2022 10:10 06/06 Unknown Unknown AM CDT 10:13 AM CDT Richar Rivas MD SEND OUTS Performing Organization Address [facility]/ZIP [facility] Phon e Number [facility] [address] [place] [address] [facility] 1999 LABORATORY (ABNORMAL) ALT (SGPT) (06/06/2022 10:10 AM CDT) P athologist Signature ALT (SGPT) 87 (H) 8 - 45 IU/L 06/07/2022 [facility] 4:04 AM CDT [facility] LABORATORY Specimen Anatomical Collection Method / Collection Time Recei alexx Time (Source) Location / Volume Laterality Blood BLOOD SPECIMEN / Venipuncture / 06/06/2022 10:10 06/06 Unknown Unknown AM CDT 10:13 AM CDT Richar Rivas MD CHEMISTRY Performing Organization Address [facility] Phon e Number [facility] [address] [place] [address] LAB[facility]AT[facility] 1999 LABORATORY (ABNORMAL) BASIC METABOLIC PANEL (06/06/2022 10:10 AM CDT) [facility] Method Time Signature SODIUM 140 135 - 145 06/07/2022 [facility] mmol/L 4:03 AM CDT [facility] POTASSIUM 4.6 3.5 - 5.0 06/07/2022 [facility] mmol/L 4:03 AM CDT [facility] CHLORIDE 107 98 - 110 06/07/2022 [facility] mmol/L 4:03 AM CDT [facility] CO2,TOTAL 26 21 - 31 06/07/2022 [facility] mmol/L 4:03 AM CDT [facility] ANION GAP 7 5 - 18 06/07/2022 [facility] 4:03 AM CDT [facility] GLUCOSE 122 (H) 65 - 100 06/07/2022 [facility] mg/dL 4:03 AM CDT [facility] CALCIUM 10.0 8.5 - 10.5 06/07/2022 [facility] mg/dL 4:03 AM CDT [facility] BUN 24 8 - 25 06/07/2022 [facility] mg/dL 4:03 AM CDT [facility] CREATININE 1.28 (H) 0.72 - 06/07/2022 [facility] 1.25 mg/dL 4:03 AM CDT [facility] BUN/CREAT RATIO 19 10 - 20 06/07/2022 [facility] 4:03 AM CDT [facility] eGFR 59 (L) >90 06/07/2022 [facility] mL/min/1.7 4:03 AM CDT [facility] 3m2 TRAL LABORATORY Comment: As of 2021, eGFR is calcu lated by the CKD-EPI creatinine equation without race adjustment. eGFR can be inf luenced by muscle mass, exercise, and diet. The reported eGFR is an estimation only and is only applicable if the renal function is stable. Specimen Anatomical Collection Method / Collection Time Recei alexx Time (Source) Location / Volume Laterality Blood BLOOD SPECIMEN / Venipuncture / 06/06/2022 10:10 06/06 Unknown Unknown AM CDT 10:13 AM CDT Richar Rivas MD CHEMISTRY Performing Organization Address City/State/ZIP Code Phon e Number [facility] [address] [place] [address] LAB[facility]ATORY[facility] 1999 LABORATORY SCAN-DIAGNOSTIC REPORT (05/07/2022 12:00 AM CDT) Narrative This result has an attachment that is no t available. Scanner OTHER XR FINGER 3 VIEWS RIGHT (04/20/2022 8:04 AM CDT) Anatomical Region Laterality Modality Finger Computed Radiography Specimen (Source) Anatomical Collection Method Collection Time Re ceived Time Location / / Volume Laterality 04/20/2022 9:51 AM CDT Narrative 04/20/2022 9:51 AM CDT For Patients: ??As a result of the Cures Act, medical imaging exams and procedure report s are released immediately into your [facility] medical record. ??You may view this report before your referring provider. ??If you have questions, please contact your health care provider. Indication: Follow-up fracture Technique: Three views right long finger Comparison: 03/09/2022 Findings: Stable appearance and alignment of the d isplaced fracture deformity involving the distal tuft of the long finger. Mild degenerative changes. Impression: No change in appearance or alignment of the distal phalangeal fracture the right long finger. Dictated by Jerrell Jimenez MD @ Apr 20 ??9:51AM (Electronically Signed) ?? Procedure Note Jerrell Jimenez MD - 04/20/2022For matting of this note might be different from the original. For Patients: As a result of the ntury Cures Act, medical imaging exams and procedure reports are released immediately into your electronic medical record. You may view this report before your referring provider. If you have questions, please contact yo ur health care provider. Indication: Follow-up fracture Technique: Three views right long finger Comparison: 03/09/2022 Findings: Stable appearance and alignment of the d isplaced fracture deformity involving the distal tuft of the long finger. Mild degenerative changes. Impression: No change in appearance or alignment of the distal phalangeal fracture the right long finger. Dictated by Jerrell Jimenez MD @ Apr 20 9:51AM (Electronically Signed) Richar Rivas MD GENERAL IMAGING from Last 3 Months Insurance Payer Benefit Plan / Subscriber ID Effective Dates Phone Addre ss Type Group MEDICARE PART B MEDICARE PART B [id number] 2013-Presen ATTN: CLAIMS - HB USE ONLY HB ONLY t [address] [facility] [place] [address] MEDICARE PART A MEDICARE PART A [id number] 2013-Presen ATTN: CLAIMS - HB USE ONLY HB ONLY t [address] [facility] [place] [place] [address] MEDICARE - PB MEDICARE PB [id number] 2013-Presen ATTN : CLAIMS USE ONLY ONLY t [address] [facility] [place] [address] BLUE CROSS BLUE CROSS OF [id number] 2018-Presen [address] [place] [id number] Advance Directives Latest Code Status on File Code Status Date Activated Date Inactivated Comments Full Code 11/10/2010 12:27 PM 11/12/2010 2:45 PM Care Teams Mailroom Coordinator Relationship Specialty Start Date End Date Richar Rivas MD PCP - General 05/29/[address] [place] [address] Ambrosio Lizarraga MD Cardiology Cardiovascular Disease 09/22/[address] [place] [address]
--- OUTSIDE RECORDS SUMMARY | 2022-06-21 15:16 | XMS_ITS | Encounter Summary ---
:1950 Author Care Team Providers Name Role Phone Richar Rivas MD Primary Care Provider [phone] Reason for Visit Prostate Cancer Assessment and Plan Assessment Note 71M with unfavorable intermediate risk prostate cancer. Doing very well with initial treatment r esponse, in terms of prostate cancer control and voiding. Recommend continue ADT for 2 years total, then follow PSA response. Would hold off on RT at this time. W ill switch from Eligard to Orgovyx for f avorable side effect profile in light of his cardiac history. 1) Prostate cancer - s/p cryotherapy - hold off Eligard - start Orgovyx for lower risk of cardia c side effects given h/o PR - follow-up in 6 months PSA/T level - If PSA rises, consider PSMA-PET, prost ate MRI and repeat biopsy prior to RT 2) BPH/LUTS - voiding well 3) Bone health - continue Ca/Vit D - 8582-5437 mg Ca and 400-1000 IU Vitami n D daily - DEXA scan prior to next visit 30 min total time 1. Malignant tumor of prostate ? DEXA, axial skeleton + vertebral frac ture assessment Discussion Note: None recorded.Patient educational handouts: No information available. Plan of Care Reminders Provider Appointments Return to Office on or around Sonny Fernández 12/06/2022 MD Michelle Lab None recorded. ? ? Referral None recorded. ? ? Procedures None recorded. ? ? Surgeries None recorded. ? ? Imaging DEXA, Axial Skeleton + 06/07/2022 [facility] Vertebral Fracture Radiology Dep artment Assessment Medications Name Start Date ? ? amlodipine 5 mg tablet ? aspirin 81 mg tablet,delayed release ? Take 1 tablet every day by oral route. atorvastatin 40 mg tablet ? doxycycline hyclate 50 mg capsule ? Eligard 45 mg (6 month) subcutaneous syringe ? Inject 45 mg by subcutaneous route. metoprolol succinate ER 50 mg tablet,extended release 24 hr ? Orgovyx 120 mg tablet ? Take 1 tablet every day by oral route. Symbicort 160 mcg-4.5 mcg/actuation HFA aerosol inhale r ? Medications Administered None recorded. Vitals Height Weight 6 ft 3 in 265 lbs Results Lab Results None recorded. Allergies Code Code System Name Reaction Severity Onset 723 RxNorm Amoxicillin Rash ? ? 87459 RxNorm Lisinopril Cough ? ? Problems Name Status Onset Date Source ? Malignant Tumor of Prostate Active 06/07/2022 ? Procedures Date Name Performed by ? 03/06/2018 Colonoscopy Information not avai lable 06/07/2022 DEXA, Axial Skeleton + Vertebral [facility] Radiology Department Fracture Assessment [address] [place] [address] (Work Place) Vaccine List Vaccine Type pneumococcal polysaccharide PPV23 05/21/2014 Social History Tobacco Smoking Status Never Smoker What was the date of your most recent tobacco 06/07/2022 screening? What is your level of alcohol consumption? Occasional Do you or have you ever used e-cigarettes or Never used elec tronic cigarettes vape? Marital status What is your level of caffeine consumption? Occasional Recreational Drug Use N How much tobacco do you chew? none Family History Relation Problem Onset Age of Age Notes Maternal Grandmother Family history of (No Information) N/A (No Notes) cancer Mother Family history of (No Information) N/A (No No robert) cardiac disorder Functional Status Unknown. Past Encounters 06/07/2022 Malignant Tumor of Prostate Sonny Martinez MD: [address] [facility] [place] [address], Ph. History of Present Illness Note: <div>71M with Marisela 4+3=7 prostate cancer.</div><div>
</div><div>Here with . </div><div>
</div><div>Now s/p cryoablation 10/26/21 ([facility]) for obstruction, with plan proposed for RT as definitive treatment. Also received ADT x [address] Kay to discuss RT; this has not been done. </div><div>
</div><div>ADT start: 06/13/21</div><div>Last ADT: 12/13/21; 45 mg Eligard</div><div>
</div><div>LUTS: good FOS, Nocturia x 0-1, Moderate LUTS, QOL 3</div><div>ADT: mod hot flashes, some fatigue</div><div>
</div><div>PMH: CAD s/p stents, STEMI ~2009</div><div>
</div><div>
</div><div>MRI (03/29/21): 73g, 3.9 cm anterior lesion abutting/bulge at anterior fibromuscular stroma</div><div>Biopsy (05/12/21): 0/12 template cores, Marisela 4+3=7 in 50% of MRI lesion; Decipher 0.85 (high risk)</div><div>
</div><div>
</div><div>PSA Results</div><div>02/15/21 7.02</div><div>08/16/21 0.23</div><div>12/13/21 <0.04</div><div>05/21/22 <0.06</div><div>
</div><div>Imaging:</div><div>Bone scan (06/20/21): Scattered degenerative activity within appendicular skeleton. Negative for mets. </div><div>
</div><div>
</div><div>FamHX:</div><div> dementia</div><div>
</div><div>
</div><div>
</div> Review of Systems ? Comprehensive General Adult ROS Reported By: Patient Constitutional: Constitutional: no fever, no chills Eyes: Eyes: no dry eyes, no vision change, no irritation Endocrine: Endocrine: no fatigue, no in creased thirst Cardiovascular: Cardiovascular: no chest ortgea n, no palpitations Integumentary: Skin: no rashes, no change i n skin color Respiratory: Respiratory: no wheezing, no cough, no shortness of breath Gastrointestinal: Gastrointestinal: no abdomin al pain, no nausea, no vomiting, no constipation, no GERD Musculoskeletal: Musculoskeletal: no neck ortega n, no back pain Neurologic: Neurologic: no tremor, no di zziness, no numbness, no headaches Genitourinary: Genitourinary: no incontinen ce, no difficulty urinating ENMT: Ears: no ear pain. Mouth/Thr oat: no sore throat Allergic/Immunologic: Allergy/Immunologic: no itch ing, no hives Hematologic/Lymphatic: Hematologic/Lymphatic no swo llen glands, no excessive bleeding Psychiatric: Psych: no hallucinations, (n ormal) sleep disturbances: mismatch of sleep / wake arlin edule with lifestyle needs Physical Exam ? Notes: <div>General: No acute distr ess, well developed/well nourished</div><div>HEENT: C onjunctiva clear, extraocular movements intact, normocephalic/atraumatic</di v><div>Resp: Respirations nonlabored, no audible wheeze, symmetric</div><div> Neuro: CN intact, normal sensation</div><div>Psych: n ormal mood and affect</div><div>
</div&g t;<div>
</div>
--- OUTSIDE RECORDS SUMMARY | 2022-06-21 15:16 | XMS_ITS | Encounter Summary ---
:1950 Author Organization [facility] Address [address] [place] [address] Care Team Providers Name Role Phone Unavailable Primary Care Provider Unavailable Encounter Details Date Type Department Care Team Description 02/26/2005 Hospital Encounter HX [facility] Ubaldo Chavez M.D. [facility] [place], [place] [address] (Wo rk) Social History Tobacco Use Types Packs/Day Years Used Date Smoking Tobacco: Never Assessed Sex Assigned at Date Recorded Male 02/06/2022 5:15 PM CDT documented as of this encounter Plan of Treatment Not on filedocumented as of this encounter Visit Diagnoses Not on filedocumented in this encounter
--- OUTSIDE RECORDS SUMMARY | 2022-06-21 15:16 | XMS_ITS ---
:1950 Author Care Team Providers Name Role Phone LISANDRO CAMACHO MD Primary Care Provider [phone] Allergies Code Code System Name Reaction Severity Status Onset 723 RxNorm Amoxicillin Rash ? Active ? 63727 RxNorm Lisinopril Cough ? Active ? Medications Name Status Start Date Stop Date ? ? amlodipine 5 mg tablet Active ? Not avail able aspirin 81 mg tablet,delayed release Active ? Not available Take 1 tablet every day by oral route. atorvastatin 40 mg tablet Active ? Not av ailable cefprozil 500 mg tablet Completed ? 06/07/20 TAKE ONE TABLET BY MOUTH TWICE DAILY ceftriaxone 1 gram solution for injection Completed ? 08/30/2020 Take 1 g by injection route. cephalexin 500 mg capsule Completed ? 2021 ciprofloxacin 500 mg tablet Completed ? 07/03 doxycycline hyclate 100 mg tablet Completed ? 08/30/2020 doxycycline hyclate 50 mg capsule Active ? Not available Eligard 45 mg (6 month) subcutaneous syringe Active ? Not available Inject 45 mg by subcutaneous route. gentamicin 40 mg/mL injection solution Completed ? 06/07/2022 Take 40 mg by injection route. hydrocodone 5 mg-acetaminophen 325 mg tablet Completed ? 06/07/2022 lisinopril 5 mg tablet Completed ? 0 metoprolol succinate ER 50 mg tablet,extended release 24 Active ? Not available hr nitroglycerin 0.4 mg sublingual tablet Completed ? 06/07/2022 Orgovyx 120 mg tablet Active ? Not availa ble Take 1 tablet every day by oral route. ProAir RespiClick 90 mcg/actuation breath activated Completed ? 06/07/2022 Shingrix (PF) 50 mcg/0.5 mL intramuscular suspension, Completed ? 06/07/2022 kit Symbicort 160 mcg-4.5 mcg/actuation HFA aerosol inhaler Active ? Not available tobramycin 0.3 %-dexamethasone 0.1 % eye Completed ? 08/30/2020 drops,suspension Problems Name Status Onset Date Source ? Malignant Tumor of Prostate Active 06/07/2022 ? Procedures Date Name Performed by ? 03/06/2018 Colonoscopy Information not avai lable 06/16/2021 NM, Bone Scan, Whole Body [facility] Radiology Department [address] [place] [address] (Work Place) 06/07/2022 DEXA, Axial Skeleton + Vertebral [facility] Radiology Department Fracture Assessment [address] [place] [address] (Work Place) 06/15/2022 DEXA, Axial Skeleton + Vertebral [facility] Radiology Department Fracture Assessment [address] [place] [address] (Work Place) Results Lab Results Date Name [...] observation recorded. ? ? ? Past Encounters 06/07/2022 Malignant Tumor of Prostate Sonny Martinez MD: [address], [place] [address], Ph. 12/13/2021 Malignant Tumor of Prostate Dave Gomez MD: [address], [place] [address], Ph. 10/30/2021 Malignant Tumor of Prostate Dave Gomez MD: [address], [place] [address], Ph. 08/23/2021 Malignant Tumor of Prostate Dave Gomez MD: [address], [place] [address], Ph. 07/19/2021 Malignant Tumor of Prostate Dave Gomez MD: [address], [place] [address], Ph. 06/13/2021 Malignant Tumor of Prostate; Primary Ere ctile Dysfunction; Large Prostate; History of Malignant Neoplasm of Prostate Dave Gomez MD: [address] [address], Ph. 05/12/2021 Malignant Tumor of Prostate; Large Prost ate; Raised Prostate Specific Antigen Dave Gomez MD: [address], [address], [place] [address], Ph. Social History Tobacco Smoking Status Never [...] ? Imaging None recorded. ? ? Vitals 06/07/2022 02:00PM ESTABLISHED 20 Height Weight 6 ft 3 in 265 lbs 12/13/2021 11:30AM ESTABLISHED 15 Height Weight BMI [...]
--- NOTE | 2022-06-21 15:30 | CRLHL7_ITS ---
For Patients: As a result of the Cures Act, medical imaging exams and procedure reports are released immediately into your electronic medical record. You may view this report before your referring provider. If you have questions, please contact your health care provider. DXA BONE MINERAL DENSITY STUDY, 06/21/2022 Reason for exam: Malignant neoplasm of prostate. Current height (inches): 73.0. Weight (lbs.): 260.0 Sex: Male Ethnicity: White 1. Have you had a previous hip or vertebral fracture? No. 2. Have you had any fractures during your adult life which did not result from significant trauma (e.g., auto accident)? No. 3. Did either of your parents have a hip fracture? No. 4. Do you smoke? No. 5. Have you ever taken Glucocorticoids? No. 6. Do you have rheumatoid arthritis? No. 7. Do you have secondary osteoporosis? No. 8. Do you drink 3 or more alcoholic drinks per day? No. 9. Are you being treated for osteoporosis? No. 10. Have you ever taken any of the following medications: Actonel, Evista, Fosamax, Miacalcin, Reclast, Boniva, Forteo, HRT (i.e., estrogen/hormone therapy), Protelos, Prolia, Vitamin D, Calcium, other ??? please specify. ANSWER: Yes; vitamin D and calcium. 11. Do you have any of the following medical conditions: Anorexia or bulimia, asthma or emphysema, end stage renal disease, hyperparathyroidism, any seizure disorders, cancer, inflammatory bowel diseases, hysterectomy, other ??? please specify. ANSWER: Yes; asthma or emphysema and cancer. 12. What was your maximum height (inches)? 73. 13. Do you perform weight bearing exercise regularly? Yes. 14. Do you regularly consume dairy products? Yes. 15. Do you drink caffeinated beverages? No. TECHNIQUE: Bone mineral density study was performed using the Carbonated Content. FINDINGS: The results of the study expressed as bone mineral density (BMD) are as follows: Lumbar Spine L1 to L4: BMD: 1.420 g/cm2. T-score: 3.0. Z-score: 4.0. Neck Left: BMD: 0.997 g/cm2. T-score: 0.5. Z-score: 1.8. Right: BMD: 1.000 g/cm2. T-score: 0.5. Z-score: 1.8. Total Left: BMD: 1.131 g/cm2. T-score: 0.7. Z-score: 1.4. Right: BMD: 1.154 g/cm2. T-score: 0.8. Z-score: 1.6. IMPRESSION: Normal bone density. In addition, VFA of the thoracolumbar spine from T6 through L4 demonstrates no vertebral body compression fracture. JERRELL MELARA M.D. Diagnostic Radiologist [email or web address] Transcribed: 10:[address]/Dictated by: Jerrell Melara MD @ 06/22/2022 9:39:00 AM (Electronically Signed)
== END 2022-06-21 15:14 | disposition home or self-care (01) ==
LOC: RAD 15:14
PROVIDERS: PCP Family Medicine; Visit Provider Urology
DX: C61 Malignant neoplasm of prostate (principal)
CPT/HCPCS: 77085

== ENCOUNTER 2025-01-07 17:02 | Emergency (ER) | payer MEDICARE, BC, SELFPAY ==
[2025-01-07 17:11] VITALS: BP 170/84; PULSE 60; RESP 18; TEMP 36.9; O2SAT 97; BMI 31.2
--- NOTE | 2025-01-07 18:16 | CRLHL7_ITS ---
For Patients: As a result of the Century Cures Act, medical imaging exams and procedure reports are released immediately into your electronic medical record. You may view this report before your referring provider. If you have questions, please contact your health care provider. INDICATION: Left lower quadrant pain.. TECHNIQUE: CT abdomen and pelvis acquired with 122 cc Isovue 370 IV contrast. COMPARISON: None. FINDINGS: Lower chest: Unremarkable. Liver: Unremarkable. Normal in size and attenuation. No suspicious masses. Gallbladder and bile ducts: Unremarkable. No stones or inflammation. No biliary dilatation. Pancreas: Unremarkable. No mass or inflammation. Spleen: Unremarkable. Normal in size. No masses. Adrenal glands: Unremarkable. No nodules. Kidneys: Coarse calcifications at the inferior pole of the left kidney. There is also calcifications in the left renal collecting system probable narrowing at the proximal left ureter. Minimal left hydronephrosis. No right hydronephrosis. Mild left perirenal fat stranding. GI tract: Redundant sigmoid. Appendix is within normal limits. No bowel obstruction. Small hiatal hernia. Vasculature: Abdominal aorta is normal in caliber. Mesenteric arteries are patent. Mild calcific atherosclerosis. Lymph nodes: No lymphadenopathy. Peritoneum/Abdominal Wall: Unremarkable. No sign of mass or infiltration. No free air or significant free fluid. Pelvis: Bladder is collapsed. Prostate is mildly enlarged indenting the base of the bladder. Bones: Bilateral L5 spondylolysis. Grade 1 anterolisthesis of L5 on S1. Multilevel degenerative changes. IMPRESSION: 1. Coarse stones at the inferior pole of the left kidney and a large stone within the left renal collecting system. There is mild left hydronephrosis and perirenal stranding which may reflect mild obstruction at the renal pelvis with a large stone is no distal stone identified. No hydroureter. 2. Bowel loops are unremarkable. Please note that all CT scans at this facility use dose modulation, iterative reconstruction, and/or weight-based dosing when appropriate to reduce radiation dose to as low as reasonably achievable. Dictated by Alize Ortiz MD @ 01/07/2025 8:06:49 PM (Electronically Signed)
--- NOTE | 2025-01-07 18:20 | ED.ABDPAIN ---
HPI - Abdominal Pain General Date Seen: 01/07/25 Chief Complaint: Abdominal Pain Stated Complaint: lower left abdomen pain Time Seen by Provider: 01/07/25 18:02 Source: patient Mode of arrival: ambulatory Limitations: no limitations History of Present Illness HPI narrative: the patient is a 74-year-old male with a history of hypertension presenting to the emergency department for left lower quadrant abdominal pain. He states that the dull ache that started suddenly earlier today. he was in a rocking chair at home when he suddenly had the pain. He then went to a friend's son's baseball game and symptoms were not going away so he decided to come to the emergency department. He has not had symptoms like this before that he is aware of but does state he has had previous kidney stones. Does not remember what those symptoms felt like. denies fevers, chills, diarrhea, constipation, nausea, vomiting, chest pain, shortness of breath, lightheadedness, dizziness. States he urinated shortly prior to arrival did not notice any dysuria or hematuria. Symptoms have not changed. No other concerns noted. No injuries to the area that he is aware of. Denies any testicular pain. Related Data Home Medications ?Medication ?Instructions ?Recorded ?Confirmed amlodipine 5 mg tablet 5 mg PO DAILY 01/07/25 01/07/25 aspirin 81 mg tablet,delayed 81 mg PO DAILY 01/07/25 01/07/25 release (Adult Aspirin Regimen) atorvastatin 40 mg tablet 40 mg PO DAILY 01/07/25 01/07/25 budesonide-formoterol HFA 160 1 inh inhalation DAILY PRN 01/07/25 01/07/25 mcg-4.5 mcg/actuation aerosol inhaler doxycycline hyclate 50 mg capsule 50 mg PO DAILY 01/07/25 01/07/25 metoprolol succinate 50 mg 50 mg PO DAILY 01/07/25 01/07/25 tablet,extended release 24 hr Allergies Allergy/AdvReac Type Severity Reaction Status Date / Time amoxicillin Allergy Intermediate Rash Verified 01/07/25 19:24 lisinopril AdvReac Cough Verified 01/07/25 19:24 Review of Systems Status of ROS Reports: 10 or more systems reviewed and unremarkable except as noted in History and below PFSH PFS Social History Smoking Status: Never smoker How often do you have a drink containing alcohol: never AUDIT-C Alcohol total score: 0 Non-prescribed substance use: denies use Exam Narrative: Exam Narrative: Const: Well-nourished, Well-developed, in mild distress Eyes: PERRL, no conjunctival injection, and symmetrical lids HENT: Atraumatic external nose and ears. Moist mucous membranes. Neck: Symmetric, trachea midline, No thyromegaly. CVS: RRR, No murmurs or gallops. Peripheral pulses 2+ and equal in all extremities RESP: Unlabored respiratory effort. Clear to auscultation bilaterally. GI: Mild left lower quadrant abdominal tenderness. Nondistended, No rebound or guarding. MSK:Extremities w/o deformity, Normal Active ROM Skin: Warm, Dry. No rashes or lesions. Neuro: Normal Muscle tone, No focal neurological deficits. Psych: Awake, Alert, & Oriented x3. Appropriate mood and affect. Const: Vital Signs, click to edit/add: Vital Signs - 24 hr 01/07/25 17:11 01/07/25 20:29 Temperature 98.4 F 97.5 F L Pulse Rate [Pulse Oximeter] 60 58 L Respiratory Rate 18 18 Blood Pressure [Ri ght Upper Arm] 170/84 H 145/81 H Pulse Oximetry 97 97 Oxygen Delivery Me thod Room Air Room Air Course Vital Signs Vital signs: Initial Vital Signs Temperature 98.4 F 01/07/25 17:11 Temperature Source Temporal Artery Scan 01/07/25 17:11 Pulse Rate 60 01/07/25 17:11 Respiratory Rate 18 01/07/25 17:11 Blood Pressure 170/84 H 01/07/25 17:11 Blood Pressure Mean 112 H 01/07/25 17:11 Blood Pressure Position Sitting 01/07/25 17:11 Pulse Oximetry 97 01/07/25 17:11 Oxygen Delivery Method Room Air 01/07/25 17:11 Vital Signs Temperature 98.4 F 01/07/25 17:11 Pulse Rate 60 01/07/25 17:11 Respiratory Rate 18 01/07/25 17:11 Blood Pressure 170/84 H 01/07/25 17:11 Pulse Oximetry 97 01/07/25 17:11 Oxygen Delivery Method Room Air 01/07/25 17:11 Temperature 97.5 F L 01/07/25 20:29 Pulse Rate 58 L 01/07/25 20:29 Respiratory Rate 18 01/07/25 20:29 Blood Pressure 145/81 H 01/07/25 20:29 Pulse Oximetry 97 01/07/25 20:29 Oxygen Delivery Method Room Air 01/07/25 20:29 MDM - Abdominal Pain MDM Narrative Medical decision making narrative: patient is a 74-year-old male presenting for left lower quadrant abdominal pain. Differential this time includes a obstructing kidney stone at the UVJ, diverticulitis, constipation. Due to location appendicitis, pancreatitis, gallbladder liver disease seem less likely. Will also ordered a CBC, CMP, urinalysis. Also CT scan with IV contrast for better evaluation. lab work returned showing no acute concerning abnormalities. His creatinine is 1.7 and via epic review was 1.44 1 month ago. This does not meet criteria for acute kidney injury. CT scan returned showing a couple stones in the left kidney and a very large mildly obstructing stone in the left pelvis. This is unlikely to be causing the pain in the left lower quadrant and seems to be an incidental finding. Urinalysis shows blood in the urine but no signs of a UTI. At this time I believe he is safe for discharge. He does have a history of prostate cancer and does see a urologist already. I informed him to call his urologist tomorrow morning about this stone as it is very unlikely to be of the past on its own if it does start causing more issues. I will give him some oxycodone for pain management just in case he develops worsening pain. I do not know what is causing this left lower quadrant pain at this time but I do not see any other abnormalities. I did try to speak to [facility], who he is a patient of, but was unable to. Lab Data Labs: Lab Results 01/07/25 01/07/25 Range/Units 18:24 18:45 WBC 8.87 (4.50-11.00) K/uL RBC 5.21 (4.30-5.90) m/uL Hgb 15.6 (13.5-17.5) gm/dL Hct 45.9 (37.0-53.0) % MCV 88 (80-100) fL MCH 30 (26-34) pg MCHC 34 (32-36) gm/dL RDW Coeff of Low 12.8 (11.5-15.5) % Plt Count 200 (140-440) K/uL Neut % (Auto) 67.3 (42.0-72.0) % Lymph % (Auto) 21.6 (20-44) % [place] % (Auto) 7.9 (0.0-11.0) % Eos % (Auto) 2.5 (0.0-7.0) % Baso % (Auto) 0.5 (0.0-3.0) % Neut # (Auto) 5.97 (1.7-7.0) K/uL Lymph # (Auto) 1.92 (0.90-2.90) K/uL [place] # (Auto) 0.70 (0.00-0.90) K/UL Eos # (Auto) 0.22 (0.00-0.50) K/uL Baso # (Auto) 0.04 (0.00-0.30) K/uL Abs Immat Gran (auto) 0.02 (0.00-0.30) K/uL Imm/Tot Granulo (auto) 0.2 % Sodium 141 (135-149) mmol/L Potassium 4.5 (3.6-5.1) mmol/L Chloride 106 (96-114) mmol/L Carbon Dioxide 23 (20-32) mmol/L Anion Gap 12 (7-15) mEq/L BUN 29 (7-30) mg/dL Creatinine 1.7 H (0.5-1.5) mg/dL Estimated Creat Clear 44.18 Estimated GFR 41 ml/min Glucose 107 (60-115) mg/dL Calcium 9.7 (8.4-10.6) mg/dL Total Bilirubin 1.0 (0.1-1.5) mg/dL AST 37 H (12-35) U/L ALT 29 (4-50) U/L Alkaline Phosphatase 70 (40-150) U/L Total Protein 7.6 (6.0-8.3) g/dL Albumin 4.8 (3.3-5.0) g/dL Urine Color Yellow (Yellow) Urine Appearance Clear (Clear) Urine pH 6.5 (5.0-8.5) Ur Specific [place] 1.015 (1.000-1.030) Urine Protein Negative (Negative) Urine Glucose (UA) Negative (Negative) Urine Ketones 1+ A (Negative) Urine Blood Trace-intact A (Negative) Urine Nitrite Negative (Negative) Urine Bilirubin Negative (Negative) Urine Urobilinogen 4.0 A (0.2-1.0) Ur Leukocyte Esterase Negative (Negative) Urine RBC 0-2 (0-2) Urine WBC 0-2 (0-5) Ur Squamous Epith Cells None (None-Few) Urine Bacteria Few A (None) Imaging Data CT scan abdomen and pelvis: Attestation: I have reviewed the pertinent imaging results. Radiologist's impression: 1. Coarse stones at the inferior pole of the left kidney and a large stone within the left renal collecting system. There is mild left hydronephrosis and perirenal stranding which may reflect mild obstruction at the renal pelvis with a large stone is no distal stone identified. No hydroureter. 2. Bowel loops are unremarkable. Please note that all CT scans at this facility use dose modulation, iterative reconstruction, and/or weight-based dosing when appropriate to reduce radiation dose to as low as reasonably achievable. Dictated by Alize Ortiz MD @ 01/07/2025 8:06:49 PM Discharge Plan Discharge Clinical Impression: Left nephrolithiasis Patient Disposition: Home, Self-Care Condition: Stable Instructions: Hydronephrosis (ED) Additional Instructions: I do not know what is causing this left lower quadrant pain but we did incidentally find a large kidney stone that is causing some mild hydronephrosis. I recommend you call your urologist tomorrow morning about this large kidney stone. Is not acutely causing any severe issues I believe but you should have close follow-up as it is not a stone that you will be able to pass on your own. Prescriptions: No Action metoprolol succinate 50 mg tablet extended release 24 hr 50 mg PO DAILY amlodipine 5 mg tablet 5 mg PO DAILY atorvastatin 40 mg tablet 40 mg PO DAILY budesonide-formoterol 160-4.5 mcg/actuation HFA aerosol inhaler 1 inh inhalation DAILY PRN doxycycline hyclate 50 mg capsule 50 mg PO DAILY aspirin [Adult Aspirin Regimen] 81 mg tablet,delayed release (DR/EC) 81 mg PO DAILY Follow Up/Referrals: Richar Rivas MD [Primary Care Provider] - Stand Alone Forms: [employer] Info Instructions
[2025-01-07 18:37] LABS: Appearance Urine Clear (Clear); Bilirubin Urine Negative (Negative); Blood Urine Trace-intact (Negative); Color Urine Yellow (Yellow); Glucose Urine Negative (Negative); Ketones Urine 1+ (Negative); Leukocyte Esterase Urine Negative (Negative); Nitrite Urine Negative (Negative); Protein Urine Negative (Negative); Specific Gravity Urine 1.015 (1.000-1.030); pH Urine 6.5 (5.0-8.5)
[2025-01-07 18:57] LABS: Bacteria Urine Few; RBC Urine 0-2 (0-2); WBC Urine 0-2 (0-5)
[2025-01-07 19:02] LABS: Basophils Absolute Auto 0.04 K/uL (0.00-0.30); Basophils Percent Auto 0.5 % (0.0-3.0); Eosinophils Absolute Auto 0.22 K/uL (0.00-0.50); Eosinophils Percent Auto 2.5 % (0.0-7.0); Hematocrit 45.9 % (37.0-53.0); Hemoglobin* 15.6 gm/dL (13.5-17.5); Immature Granulocytes Abs Auto 0.02 K/uL (0.00-0.30); Immature Granulocytes Pct Auto 0.2 %; Lymphocytes Absolute Auto 1.92 K/uL (0.90-2.90); Lymphocytes Percent Auto 21.6 % (20-44); Mean Corpuscular HGB Conc 34 gm/dL (32-36); Mean Corpuscular Hemoglobin 30 pg (26-34); Mean Corpuscular Volume 88 fL (80-100); Monocytes Percent Auto 7.9 % (0.0-11.0); Neutrophils Absolute Auto 5.97 K/uL (1.7-7.0); Neutrophils Percent Auto 67.3 % (42.0-72.0); Platelet Count* 200 K/uL (140-440); RDW Coefficient of Variation % 12.8 % (11.5-15.5); Red Blood Count 5.21 m/uL (4.30-5.90); Slide Review Reflex No; White Blood Count* 8.87 K/uL (4.50-11.00)
[2025-01-07 19:08] LABS: Albumin* 4.8 g/dL (3.3-5.0); Chloride* 106 mmol/L (96-114); Potassium* 4.5 mmol/L (3.6-5.1); Sodium* 141 mmol/L (135-149)
[2025-01-07 19:11] LABS: Alanine Aminotransferase* 29 U/L (4-50); Alkaline Phosphatase* 70 U/L (40-150); Anion Gap 12 mEq/L (7-15); Aspartate Amino Transferase* 37 U/L (12-35); Blood Urea Nitrogen* 29 mg/dL (7-30); Carbon Dioxide* 23 mmol/L (20-32); Creatinine* 1.7 mg/dL (0.5-1.5); Est. Creatinine Clearance* 44.18; Estimated Glomerular Filt Rate 41 ml/min; Total Protein* 7.6 g/dL (6.0-8.3)
[2025-01-07 19:12] LABS: Calcium* 9.7 mg/dL (8.4-10.6); Glucose* 107 mg/dL (60-115)
[2025-01-07 20:29] VITALS: BP 145/81; PULSE 58; RESP 18; TEMP 36.4; O2SAT 97
--- OUTSIDE RECORDS SUMMARY | 2025-01-07 20:51 | XMS_ITS | Continuity of Care Document ---
Author Organization 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 Referral None recorded. Procedures None recorded. Surgeries None recorded. Imaging None recorded. Medication Orders None recorded. Patient TargetsNo targets recorded. Patient Instructions Encounter Date Encounter Id Patient Instructions Last Modified By Organization Details Last Modified Time 12/31/2024 [id number] Pt to follow up with Dr. Michelle erwin Not available 12/31/2024 11:29:15 Reason for Referral None Reported. Problems Name Problem SNOMED Code Status Onset Date Resolution Date Notes Provider Name and Address Organization Details Recorded Time Malignant neoplasm of prostate 533234363 Active 022 Sonny rizo MD, PHD [address], [phone], [facility] 15:32:32 Problem Notes None recorded. Procedures Surgical History Date Name Laterality Status Provider Name and Address Organization Details Recorded Time 05/01/202 5 Blood Draw/SMT TECHNICIAN/PSA RESULTS completed Marina De Loeno [facility] 12/29/2024 12:04:42 4 Blood Draw/SMT TECHNICIAN/PSA RESULTS completed Marina Cordova [facility] 06/24/2024 14:29:59 4 Blood Draw/SMT TECHNICIAN/PSA RESULTS completed Sonny zaragoza MD, PHD [address] [place] [address],[address], [place], [phone], [facility] 12/19/2023 11:56:49 3 SMT TECHNICIAN/blood draw completed Darlyn Smith [facility] 12/12/2022 12:27:29 2 [facility] 12:27:30 2 Blood Draw/SMT TECHNICIAN/PSA RESULTS completed Dave Patricia [facility] 12/13/2021 12:27:36 2 Nina Catheter Removal completed Brandy Sunshine [facility] 10/30/2021 10:47:30 1 Bladder Scan completed Dave Patricia [facility] 07/19/2021 15:04:42 1 Eligard completed Johanny Diez [facility] 06/13/2021 13:47:32 0 Prostate Biopsy Procedure completed Stanley Rojas MD [address] [place] [phone] 08/22/2020 10:14:57 8 Colonoscopy completed Nikole Isabel [facility] 06/27/2021 17:54:13 Imaging Results None recorded. Procedure Notes None recorded. Medical Equipment None Reported. Allergies Allergen ID Allergen Name Allergen Category Reaction Reaction Severity Criticality Documentation Date Start Date Code Code System Note Provider Name and Address Organization Details Recorded Time 150888 amoxicill in medicatio n rash Not available Not available 08/30/[address] [facility] 0 09:26:43 [id number] lisinopri l medicatio n cough Not available Not available 07/19/2021 03474 RxNorm Dave Patricia [facility] [place] [facility] [place] [facility] 14:54:10 Medications Name Sig Start Date Stop Date Status Note LastModified by Organization Details LastModified Time celecoxib 200 mg capsule 12/18 completed Not Available Not Available Not Available atorvastati n 40 mg tablet active Not Available Not Available Not Available atorvastati n 80 mg tablet 12/12 completed Not Available Not Available Not Available cefprozil 500 mg tablet TAKE ONE TABLET BY MOUTH TWICE DAILY 06/07 completed Not Available Not Available Not Available metoprolol succinate ER 50 mg tablet,exte nded release 24 hr active Not Available Not Available Not Available hydrocodone 5 mg-acetamin ophen 325 mg tablet 06/07 completed Not Available Not Available Not Available doxycycline hyclate 50 mg capsule 07/02 completed Not Available Not Available Not Available amlodipine 5 mg tablet active Not Available Not Available Not Available ciprofloxac in 500 mg tablet Take 1 tablet every 12 hours by oral route. 07/19 completed Not Available Not Available Not Available aspirin 81 mg tablet,loren yed release Take 1 tablet every day by oral route. active Not Available Not Available No t Available ceftriaxone 1 gram solution for injection Take 1 g by injection route. 08/30 completed Not Available Not Available Not Available cephalexin 500 mg capsule 06/07 completed Not Available Not Available Not Available nitroglycer in 0.4 mg sublingual tablet 06/07 completed Not Available Not Available Not Available lisinopril 5 mg tablet 08/30 completed Not Available Not Available Not Available gentamicin 40 mg/mL injection solution Take 40 mg by injection route. 06/07 completed Not Available Not Available Not Available doxycycline hyclate 100 mg tablet 07/02 completed Not Available Not Available Not Available tobramycin 0.3 %-dexametha sone 0.1 % eye drops,suspe nsion 08/30 completed Not Available Not Available Not Available Eligard 45 mg (6 month) subcutaneou s syringe Inject 45 mg by subcutane ous route. 12/12 completed Not Available Not Available Not Available budesonide- formoterol HFA 160 mcg-4.5 mcg/actuati on aerosol inhaler active Not Available Not Available Not Available ProAir RespiClick 90 mcg/actuati on breath activated 06/07 completed Not Available Not Available Not Available Shingrix (PF) 50 mcg/0.5 mL intramuscul ar suspension, kit 06/07 completed Not Available Not Available Not Available Orgovyx 120 mg tablet Take 1 tablet every day by oral route. 12/18 completed Not Available Not Available Not Available Paxlovid 150 mg-100 mg tablets in a dose pack (Moderate Renal Dose) 12/18 completed Not Available Not Available Not Available Vitals Date Recorded Body height Body mass index (BMI) Body weight Provider Name and Address Organization Details Last Updated DateTime 12/31/2024 190.5 cm 30.1 kg/m2 550258.76 g Sonny zaragoza MD, PHD [address] [place] [address], [phone] [place] [address] Urology 12/31/2024 11:49:51 Social History Question Answer Notes LastModified by Organizat ion Details LastModified Time Tobacco Smoking Status [facility] 08/30/2020 09:30:06 What Is Your Level Of Alcohol Consumption? None Information not available 12/19/2023 What Is Your Level Of Caffeine Consumption? Occasional Information not available 08/30/2020 How Much Tobacco Do You Chew? None Information not available 08/30/2020 Do You Or Have You Ever Used E-cigarettes Or Vape? Never Used Electronic Cigarettes Information not available 08/30/2020 Recreational Drug Use No Information not available 08/30/2020 Marital Status Informatio n not available 08/30/2020 What Was The Date Of Your Most Recent Tobacco Screening? 12/31/2024 [email or web address] Information not available 12/31/2024 Have You Ever Been Counseled For Unhealthy Alcohol Use? No Information not available 06/14/2023 Do You Use Any Illicit Or Recreational Drugs? No Information not available 06/14/2023 Has Tobacco Cessation Counseling Been Provided? No Information not available 06/14/2023 Do You Or Have You Ever Used Any Other Forms Of Tobacco Or Nicotine? No Information not available 06/14/2023 How Many Days In The Past Year Have You Consumed 5 Or More Drinks? 0 Information not available 06/14/2023 Sex: Unknown Functional Status None recorded. Mental Status None recorded. Family History Relationship Description Onset Age of this Age Resolved Age Notes LastModified by Organization Details LastModified Time Maternal Grandmother Family history of malignant neoplasm bbeckers Not available 2019 09:29:31 Mother Family history of cardiac disorder bbeckers Not available 2019 09:29:49 Medical History Condition Response Other N High Blood Pressure Y Kidney Stones N Lung Disease N Depression N GERD/Acid Reflux N Sexually Transmitted Infection N Cancer Y High Cholesterol N Diabetes N Bleeding Disorder N Heart Disease N Immunizations Vaccine Type Date Status Note Provider Nam e and Address Organization Details Recorded Time COVID-19, mRNA, LNP-S, PF, 30 mcg/0.3 mL dose, carolyne-sucrose 2 completed Not Available [facility] 12/31/2024 11:28:31 Influenza, adjuvanted, quadrivalent, PF 2 completed Not Available [facility] 12/31/2024 11:28:31 COVID-19, mRNA, LNP-S, bivalent, PF, 30 mcg/0.3 mL dose 2 completed Not Available [facility] 12/31/2024 11:28:31 Influenza, adjuvanted, quadrivalent, PF 3 completed Not Available [facility] 12/31/2024 11:28:31 RSV, recombinant, protein subunit RSVpreF, adjuvant reconstituted, 0.5 mL, PF 3 completed Not Available [facility] 12/31/2024 11:28:31 COVID-19, mRNA, LNP-S, PF, 50 mcg/0.5 mL 4 completed Not Available [facility] 12/31/2024 11:28:31 Influenza, adjuvanted, trivalent, PF 4 completed Not Available [facility] 12/31/2024 11:28:31 pneumococcal polysaccharide PPV23 4 completed RAMOS Mayorga [facility] 06/07/2022 14:54:29 Influenza, adjuvanted, trivalent, PF 9 completed Sonny Mckeon MD, PHD [address] [place], [place] [phone], [facility] 06/14/2023 11:51:13 Influenza, adjuvanted, trivalent, PF 8 completed Sonny Mckeon MD, PHD [address] [place] [address], [phone], [facility] 06/14/2023 11:51:13 zoster recombinant 9 completed Sonny Mckeon MD, PHD [address] [place] [address], [phone], [facility] 06/14/2023 11:51:13 zoster recombinant 9 completed Sonny Mckeon MD, PHD [address] [place] [address], [phone], [facility] 06/14/2023 11:51:13 Influenza, high-dose, quadrivalent, PF 1 completed Sonny Mckeon MD, PHD [address] [place] [address], [phone], [facility] 06/14/2023 11:51:13 Influenza, adjuvanted, quadrivalent, PF 0 completed Sonny Mckeon MD, PHD [address] [place] [address], [phone], [facility] 06/14/2023 11:51:13 COVID-19, mRNA, LNP-S, PF, 30 mcg/0.3 mL dose 1 completed Sonny Mckeon MD, PHD [address] [place] [address], [phone], [facility] 06/14/2023 11:51:13 COVID-19, mRNA, LNP-S, PF, 30 mcg/0.3 mL dose 1 completed Sonny Mckeon MD, PHD [address] [place] [address],[address], [phone], [facility] 06/14/2023 11:51:13 COVID-19, mRNA, LNP-S, PF, 30 mcg/0.3 mL dose 1 completed Sonny Mckeon MD, PHD [address] [place] [address], [phone], [facility] 06/14/2023 11:51:14 Tdap 9 completed Sonny Mckeon MD, PHD [address] [place] [address],[address], [phone], [facility] 06/14/2023 11:51:14 Tdap 9 completed Sonny Mckeon MD, PHD [address] [place] [address],[address], [phone], [facility] 06/14/2023 11:51:14 Novel Bxvzluyel-[id number], all formulations 9 completed Sonny Mckeon MD, PHD [address] [place] [address],[address], [phone], [facility] 06/14/2023 11:51:14 zoster live 4 completed Sonny Mckeon MD, PHD [address] [place] [address], [place], [phone], [facility] 06/14/2023 11:51:14 Influenza, high-dose, trivalent, PF 4 completed Sonny Mckeon MD, PHD [address] [place] [address], [phone], [facility] 06/14/2023 11:51:14 Influenza, high-dose, trivalent, PF 7 completed Sonny Mckeon MD, PHD [address] [place] [address], [phone], [facility] 06/14/2023 11:51:14 Influenza, split virus, trivalent, preservative 3 completed Sonny Mckeon MD, PHD [address] [place] [address], [phone], [facility] 06/14/2023 11:51:14 Influenza, split virus, trivalent, preservative 2 completed Sonny Mckeon MD, PHD [address] [place], [place] [phone], [facility] 06/14/2023 11:51:14 Influenza, split virus, trivalent, preservative 3 completed Sonny Mckeon MD, PHD [address] [place] [address], [address] [place] [address], [facility] 06/14/2023 11:51:14 Influenza, split virus, trivalent, PF 1 completed Sonny Mckeon MD, PHD [address] [place] [address], [facility] 06/14/2023 11:51:14 Influenza, split virus, quadrivalent, PF 6 completed Sonny Mckeon MD, PHD [address] [place] [address], [phone], [facility] 06/14/2023 11:51:14 Past Encounters Encounter ID Performer Location Encounter Start Date Encounter Closed Date Diagnosis/Indication Diagnosis SNOMED-CT Code Diagnosis ICD10 Code Diagnosis Note [id number] Sonny romero MD, PHD [facility] [address] [place] [address] 12/31/2024 11:26:43 01/07/2025 10:14:26 Malignant neoplasm of prostate [id number] [id number] Sonny romero MD, PHD [facility] [address] [place] [address] 12/31/2024 11:26:43 12/31/2024 11:29:25 Health Concerns Section Related Observation LastModified by Organization Detai ls LastModified Time None Recorded Concern Status LastModified by Organization Details LastModified Time None Recorded Payers Encounter Date Sequence Insurance Name Policy Number Policy Brown Covered Member ID Brown Member ID Guarantor Name 12/31/2024 2 [place] [id number] Jayden Crook [id number] Jayden Culver Armaan 12/31/2024 1 [place] [employer] [facility] Jayden Crook [id number] Jayden Crook Notes Date Note Type Note Provider Name and Address Organization Details Recorded Time 12/31/2024 text/html 74M with Marisela 4+3=7 prostate cancer. Here with . No pain. No hematuria. Now s/p cryoablation 10/26/21 ([facility]) for obstruction, with plan proposed for RT as definitive treatment. Has now completed [address] Kay to discuss RT; this has not been done. ADT: 06/13/21- 06/2023; Orgovyx LUTS: good FOS, Nocturia x 0-1, Moderate LUTSADT: hot flashes resolved, some fatigue PMH: CAD s/p stents, STEMI ~2009 MRI (03/29/21): 73g, 3.9 cm anterior lesion abutting/bulge at anterior fibromuscular stromaBiopsy (05/12/21): 0/12 template cores, Lutcher 4+3=7 in 50% of MRI lesion; Decipher 0.85 (high risk) PSA Results02/15/21 7. 0.234/ <0.049/ <0.064/02/22 <0.0410/12/23: <0.024/: 0.: 0.105/09/26: 0.12 T level06/05/23: <34/: 162.: 234 Imaging:Bone scan (06/20/21): Scattered degenerative activity within appendicular skeleton. Negative for mets.DEXA scan 06/2022: normal bone mineral density FamHX:dementia Sonny Mckeon MD, PHD [address] [place] [address],[address], [place], [phone], [facility] 12/31/2024 12:29:09
--- OUTSIDE RECORDS SUMMARY | 2025-01-07 20:51 | XMS_ITS | Continuity of Care Document ---
Author Organization [facility], [facility] Address [address] [place] [address] Care Team Providers Care Tray Service Worker Name Role Phone LISANDRO CAMACHO Primary Care Provider [phone] Assessment Encounter Date Assessment Date Assessment LastModified by Organization Details LastModified Time 12/31/2024 12/31/2024 74M with unfavorable intermediate risk prostate cancer. Doing very well with initial treatment response, in terms of prostate cancer control and voiding. Would hold off on RT at this time. 1) Prostate cancer - s/p cryotherapy 10/2021 - s/p 2 years ADT as of 06/2023 - follow-up in 6 months PSA/T level - If PSA rises >2, consider PSMA-PET, prostate MRI and repeat biopsy prior to considering RT 2) BPH/LUTS - voiding well 3) Bone health - continue Ca/Vit D - 5547-5164 mg Ca and 400-1000 IU Vitamin D daily - DEXA scan 06/21/22: normal BMD [email or web address] Not available 12/31/2024 12:28:56 Plan of Treatment Reminders Order Date Submit Date Provider Last Modified By Organization Details Last Modified Time Details Appointments LAB BLOOD DRAW 2024 11:00A M [facility] Not available Not available Not available ESTABLISH ED 10 2024 11:20A M Sonny rizo MD, PHD Not available Not available Not available Lab PSA, serum or plasma 2024 025 [email or web address] [facility], [address], [place], [address], 12/31/2024 12:03:06 testoster one, total, serum 2024 025 [facility], [address] [place] [address], [address], [address], 12/31/2024 18:54:21 Referral None recorded. Procedures None recorded. Surgeries None recorded. Imaging None recorded. Medication Orders None recorded. Patient TargetsNo targets recorded. Patient InstructionsNo instructions recorded. Reason for Referral None Reported. Results Created Date Observation Date Name Description Value Unit Range Abnormal Flag Note LastModifiedBy Organization Detail LastModifiedTime 01/01/2012/31/2024 PSA, serum or plasm a PSA 0.12 ng/mL 0-4.0 NG/mL Not Available [facility] [address], [place], [address], 12/29/2024 12:04:38 Result Notes None recorded. Problems Name Problem SNOMED Code Status Onset Date Resolution Date Notes Provider Name and Address Organization Details Recorded Time Malignant neoplasm of prostate [id number] Active 022 Sonny rizo MD, PHD [address] [place] [address],[address] [place] [address], [phone], [facility] 15:32:32 Problem Notes None recorded. Procedures Surgical History Date Name Laterality Status Provider Name and Address Organization Details Recorded Time 5 Blood Draw/CLINICAL ASSISTANT PROFESSOR/PSA RESULTS completed Marina Cordova [facility] 12/29/2024 12:04:42 4 Blood Draw/CLINICAL ASSISTANT PROFESSOR/PSA RESULTS completed Marina Cordova [facility] 06/24/2024 14:29:59 4 Blood Draw/CLINICAL ASSISTANT PROFESSOR/PSA RESULTS completed Sonny zaragoza MD, PHD [address] [place] [address],[address], [place], [address], [facility] 12/19/2023 11:56:49 3 CLINICAL ASSISTANT PROFESSOR/blood draw completed Darlyn Smith [facility] 12/12/2022 12:27:29 2 Bladder Scan completed Dave Gomez [facility] 12/13/2021 12:27:30 2 Blood Draw/CLINICAL ASSISTANT PROFESSOR/PSA RESULTS completed Dave [facility] 12/13/2021 12:27:36 2 Nina Catheter Removal completed Brandyviola Sunshine [facility] 10/30/2021 10:47:30 1 Bladder Scan completed Dave [facility] 07/19/2021 15:04:42 1 Eligard completed Johanny Diez [facility] 06/13/2021 13:47:32 0 Prostate Biopsy Procedure completed Stanley Rojas MD [address] [facility], [place], [address], [facility] 08/22/2020 10:14:57 8 Colonoscopy completed Nikole Isabel [facility] 06/27/2021 17:54:13 Imaging Results None recorded. Procedure Notes None recorded. Medical Equipment None Reported. Allergies Allergen ID Allergen Name Allergen Category Reaction Reaction Severity Criticality Documentation Date Start Date Code Code System Note Provider Name and Address Organization Details Recorded Time 787340 amoxicill in medicatio n rash Not available Not available 08/30/2020 723 RxNorm Shola Ko [facility] 0 09:26:43 [id number] lisinopri l medicatio n cough Not available Not available 07/19/2021 12990 RxNorm Dave Patricia [facility] 1 14:54:10 Medications Name Sig Start Date Stop [...] Updated DateTime 12/31/2024 190.5 cm 30.1 kg/m2 787579.76 g Sonny zaragoza MD, PHD [address], [place], [address], [facility] 12/31/2024 11:49:51 Social History Question Answer Notes LastModified by Organizat ion Details LastModified Time Tobacco Smoking Status Never Smoker Shola Ko anastasia, [facility] 08/30/2020 09:30:06 What Is Your Level [...] High Blood Pressure Y Kidney Stones N Depression N Lung Disease N GERD/Acid Reflux N Sexually Transmitted Infection N Cancer Y High Cholesterol N Diabetes N Bleeding Disorder N Heart Disease N Immunizations Vaccine Type Date Status Note Provider Nam e and Address Organization Details Recorded Time COVID-19, mRNA, LNP-S, PF, 30 mcg/0.3 mL dose, carolyne-sucrose 2 completed Not Available [facility] 12/31/2024 11:28:31 Influenza, adjuvanted, quadrivalent, PF 2 completed Not Available [facility] 12/31/2024 11:28:31 COVID-19, mRNA, LNP-S, bivalent, PF, 30 mcg/0.3 mL dose 2 completed Not Available [facility] 12/31/2024 11:28:31 Influenza, adjuvanted, quadrivalent, PF 3 completed Not Available [facility] 12/31/2024 11:28:31 RSV, recombinant, protein subunit RSVpreF, adjuvant reconstituted, 0.5 mL, PF 3 completed Not Available [facility] 12/31/2024 11:28:31 COVID-19, mRNA, LNP-S, PF, 50 mcg/0.5 mL 4 completed Not Available [facility] 12/31/2024 11:28:31 Influenza, adjuvanted, trivalent, PF 4 completed Not Available [facility] 12/31/2024 11:28:31 pneumococcal polysaccharide PPV23 4 completed Carolyn oconnor, [facility] 06/07/2022 14:54:29 Influenza, adjuvanted, trivalent, PF 9 completed Sonny Mckeon MD, PHD [address] [place] [address], [phone], [facility] 06/14/2023 11:51:13 Influenza, adjuvanted, trivalent, PF 8 completed Sonny Mckeon MD, PHD [address] [place] [address], [phone], [facility] 06/14/2023 11:51:13 zoster recombinant 9 completed Sonny Mckeon MD, PHD [address] [place] [address], [phone], [facility] 06/14/2023 11:51:13 zoster recombinant 9 completed Sonny Mckeon MD, PHD [address] [place] [address], [phone], [facility] 06/14/2023 11:51:13 Influenza, high-dose, quadrivalent, PF 1 completed Sonny Mckeon MD, PHD [address] [place] [address], [address], [facility] 06/14/2023 11:51:13 Influenza, adjuvanted, quadrivalent, PF 0 completed Sonny Mckeon MD, PHD [address] [place] [address], [phone], [facility] 06/14/2023 11:51:13 COVID-19, mRNA, LNP-S, PF, 30 mcg/0.3 mL dose 1 completed Sonny Mckeon MD, PHD [address] [place] [address],[address], [phone], [facility] 06/14/2023 11:51:13 COVID-19, mRNA, LNP-S, PF, 30 mcg/0.3 mL dose 1 completed Sonny Mckeon MD, PHD [address] [place] [address],[address], [phone], [facility] 06/14/2023 11:51:13 COVID-19, mRNA, LNP-S, PF, 30 mcg/0.3 mL dose 1 completed Sonny Mckeon MD, PHD [address] [place] [address], [phone], [facility] 06/14/2023 11:51:14 Tdap 9 completed Sonny Mckeon MD, PHD [address] [place] [address],[address], [address], [facility] 06/14/2023 11:51:14 Tdap 9 completed Sonny Mckeon MD, PHD [address] [place] [address],[facility] [address], [place], [address], [facility] 06/14/2023 11:51:14 Novel Ytdmvsuse-[id number], all formulations 9 completed Sonny Mckeon MD, PHD [address] [place] [address],[facility] [address], [place], [address], [facility] 06/14/2023 11:51:14 zoster live 4 completed Sonny Mckeon MD, PHD [address] [place] [address],[facility] [address], [place], [address], [facility] 06/14/2023 11:51:14 Influenza, high-dose, trivalent, PF 4 completed Sonny Mckeon MD, PHD [address] [place] [address],[place] [address], [place], [address], [facility] 06/14/2023 11:51:14 Influenza, high-dose, trivalent, PF 7 completed Sonny Mckeon MD, PHD [address] [place] [address],[facility] [address], [place], [address], [facility] 06/14/2023 11:51:14 Influenza, split virus, trivalent, preservative 3 completed Sonny Mckeon MD, PHD [address] [place] [address],[facility] [address], [place], [address], [facility] 06/14/2023 11:51:14 Influenza, split virus, trivalent, preservative 2 completed Sonny Mckeon MD, PHD [address] [place] [address],[facility] [address], [place], [address], [facility] 06/14/2023 11:51:14 Influenza, split virus, trivalent, preservative 3 completed Sonny Mckeon MD, PHD [address] [place] [address],[facility] [address], [place], [address], [facility] 06/14/2023 11:51:14 Influenza, split virus, trivalent, PF 1 completed Sonny Mckeon MD, PHD [address] [place] [address],[address], [address], [facility] 06/14/2023 11:51:14 Influenza, split virus, quadrivalent, PF 6 completed Sonny Mckeon MD, PHD [address] [place] [address],[address], [address], [facility] 06/14/2023 11:51:14 Past Encounters Encounter ID Performer Location Encounter Start Date Encounter Closed Date Diagnosis/Indication Diagnosis SNOMED-CT Code Diagnosis ICD10 Code Diagnosis Note [id number] Sonny romero MD, PHD [facility] [address] [place] [address] 12/31/2024 11:26:43 01/07/2025 10:14:26 Malignant neoplasm of prostate [id number] C61 [id number] Sonny romero MD, PHD [facility] [address] [place] [address] 12/31/2024 11:26:43 12/31/2024 11:29:25 Health Concerns Section Related Observation LastModified by Organization Detai ls LastModified Time None Recorded Concern Status LastModified by Organization Details LastModified Time None Recorded Payers Encounter Date Sequence Insurance Name Policy Number Policy Brown Covered Member ID Brown Member ID Guarantor Name 12/31/2024 2 [place] [id number] Jayden Crook [id number] Jayden Crook 12/31/2024 1 [place] [employer] Jayden Agustinl [id number] Jayden Crook Notes Date Note Type Note Provider Name and Address Organization Details Recorded Time 12/31/2024 text/html 74M with Weldon 4+3=7 prostate cancer. Here with . No pain. No hematuria. Now s/p cryoablation 10/26/21 ([facility]) for obstruction, with plan proposed for RT [...] anterior fibromuscular stromaBiopsy (05/12/21): 0/12 template cores, Weldon 4+3=7 in 50% of MRI lesion; Decipher 0.85 (high risk) PSA Results02/15/21 7. 0.234/ <0.049/ <0.064/02/22 <0.0410/12/23: <0.024/: 0.: 0.105/09/26: 0.12 T level06/05/23: <34: 162.: 234 Imaging:Bone scan (06/20/21): Scattered degenerative activity within appendicular skeleton. Negative for mets.DEXA scan 06/2022: normal bone mineral density FamHX:dementia Sonny Mckeon MD, PHD [address] [facility],[address], [place], [address], [facility] 12/31/2024 12:29:09
--- OUTSIDE RECORDS SUMMARY | 2025-01-07 20:52 | XMS_ITS | Data Portability ---
Author Organization [place] [facility] [place] [facility] Address [address] [facility] [address] [place] [address] Care Team Providers Care Hospitality Manager Name Role Phone LISANDRO CAMACHO Primary Care Provider Assessment Encounter Date Assessment Date Assessment LastModified by Organization Details LastModified Time 06/14/2023 06/14/2023 72M with unfavorable intermediate risk prostate cancer. Doing very well with initial treatment response, in terms of prostate cancer control and voiding. Recommend continue ADT for 2 years total, then follow PSA response. Would hold off on RT at this time. Will switch from Eligard to Orgovyx for favorable side effect profile in light of his cardiac history. 1) Prostate cancer - s/p cryotherapy 10/2021 - Finish current month of Orgovyx; then stop because he will have completed 2 years - follow-up in 6 months PSA/T level - If PSA rises >2, consider PSMA-PET, prostate MRI and repeat biopsy prior to considering RT 2) BPH/LUTS - voiding well 3) Bone health - continue Ca/Vit D - 5867-3405 mg Ca and 400-1000 IU Vitamin D daily - DEXA scan 06/21/22: normal BMD [email or web address] Not available 06/14/2023 12:34:57 12/19/2023 12/19/2023 73M with unfavorable intermediate risk prostate cancer. Doing [...] Bone health - continue Ca/Vit D - 3545-6170 mg Ca and 400-1000 IU Vitamin D daily - DEXA scan 06/21/22: normal BMD [email or web address] Not available 12/19/2023 12:15:37 07/02/2024 07/02/2024 73M with unfavorable intermediate risk prostate cancer. Doing [...] Bone health - continue Ca/Vit D - 4004-3928 mg Ca and 400-1000 IU Vitamin D daily - DEXA scan 06/21/22: normal BMD [email or web address] Not available 07/02/2024 12:22:54 12/31/2024 12/31/2024 74M with unfavorable intermediate risk [...] Bone health - continue Ca/Vit D - 0707-9602 mg Ca and 400-1000 IU Vitamin D daily - DEXA scan 06/21/22: normal BMD [email or web address] Not available 12/31/2024 12:28:56 12/31/2024 12/31/2024 Here for blood draw yaima [...] or plasma 2024 025 [email or web address] [facility], [address], [place], [address], 12/31/2024 12:03:06 testoster one, total, serum [address] [facility], [address] [facility], [place], [address], 12/31/2024 18:54:21 PSA, serum or plasma 2023 024 [email or web address] [facility], [address] [place], [address], 07/02/2024 12:06:02 testoster one, total, serum [address] [facility], [address] [facility], [place], [address], 07/02/2024 17:00:32 PSA, serum or plasma 2023 024 [email or web address] [facility], [address] [place], [address], 12/19/2023 12:07:13 Referral None recorded. Procedures None recorded. Surgeries None recorded. Imaging None recorded. Medication Orders None recorded. Patient TargetsNo targets recorded. Patient Instructions Encounter Date Encounter Id Patient Instructions Last Modified By Organization Details Last Modified Time 12/31/2024 [id number] Pt to follow up with Dr. Michelle erwin Not available 12/31/2024 11:29:15 Reason for Referral None Reported. Results Created Date Observation Date Name Description Value Unit Range Abnormal Flag Note LastModifiedBy Organization Detail LastModifiedTime 12/19/19 24 12/19/2023 TESTO STERO NE testosterone 162.35 NG/dL 175.00 -781.0 0 low This lab resul t is being provi ded to you and your provi paradise at the same time in [facility] with the Centu ry Cures Act. Your provi paradise may not have had time to revie w and make recom menda tions based on the resul t. Florencia e allow up to one week for provi paradise revie w. Not Available [facility] [address] [facility] [address], [place], [address], 12/19/2023 18:49:04 12/19/19 24 12/19/2023 PSA, serum or plasm a PSA 0.06ng /ml 0-4.0 NG/mL Not Available [facility] [address], [place], [address], 12/19/2023 12:06:52 07/02/20 24 07/02/2024 TESTO STERO NE testosterone 234.19 NG/dL 175.00 -781.0 0 This lab resul t is being provi ded to you and your provi paradise at the same time in [facility] with the Centu ry Cures Act. Your provi paradise may not have had time to revie w and make recom menda tions based on the resul t. Florencia e allow up to one week for provi paradise revie w. Not Available [facility] [address] [facility] [address], [place], [address], 07/02/2024 17:00:32 07/02/20 24 07/02/2024 PSA, serum or plasm a PSA 0.10 ng/ml 0-4.0 NG/mL Not Available [facility] [address], [place], [address], 06/24/2024 14:29:56 01/01/20 25 12/31/2024 PSA, serum or plasm a PSA 0.12 ng/mL 0-4.0 NG/mL Not Available [facility] [address], [place], [address], 12/29/2024 12:04:38 Result Notes None recorded. Problems Name Problem SNOMED Code Status Onset Date Resolution Date Notes Provider Name and Address Organization Details Recorded Time Malignant neoplasm of prostate 564342062 Active 022 Sonny rizo MD, PHD [address] [place] [address],[address], [place], [address], [facility] 2 15:32:32 Problem Notes None recorded. Procedures Surgical History Date Name Laterality Status Provider Name and Address Organization Details Recorded Time 5 Blood Draw/COREMAKING MACHINE OPERATOR/PSA RESULTS completed Marina Cordova [facility] 12/29/2024 12:04:42 4 Blood Draw/COREMAKING MACHINE OPERATOR/PSA RESULTS completed Marina Cordova [facility] 06/24/2024 14:29:59 4 Blood Draw/COREMAKING MACHINE OPERATOR/PSA RESULTS completed Sonny zaragoza MD, PHD [address] [place] [address],[facility] [address], [place], [address], [facility] 12/19/2023 11:56:49 3 COREMAKING MACHINE OPERATOR/blood draw completed Darlyn Smith [facility] 12/12/2022 12:27:29 2 Bladder Scan completed Dave Gomez [facility] 12/13/2021 12:27:30 2 Blood Draw/COREMAKING MACHINE OPERATOR/PSA RESULTS completed Dave Gomez [facility] 12/13/2021 12:27:36 2 Nina Catheter Removal completed Brandy Sunshine [facility] 10/30/2021 10:47:30 1 Bladder Scan completed Dave Gomez [facility] 07/19/2021 15:04:42 1 Eligard completed Johanny Diez [facility] 06/13/2021 13:47:32 0 Prostate Biopsy Procedure completed Stanley Rojas MD [address] [place] [address],[address], [place], [address], [facility] 08/22/2020 10:14:57 8 Colonoscopy completed Nikole Isabel [facility] 06/27/2021 17:54:13 Imaging Results None recorded. Procedure Notes None recorded. Medical Equipment None Reported. Allergies Allergen ID Allergen Name Allergen Category Reaction Reaction Severity Criticality Documentation Date Start Date Code Code System Note Provider Name and Address Organization Details Recorded Time 309011 amoxicill in medicatio n rash Not available Not available 08/30/2020 723 RxNorm Shola Ko [facility] 0 09:26:43 048147 lisinopri l medicatio n cough Not available Not available 07/19/2021 51471 RxNorm Dave Gomez [facility] 1 14:54:10 Medications Name Sig Start [...] solution Take 40 mg by injection route. 09/10/ 2021 10/06 /2022 completed Not Available Not Available Not Available [...] and Address Organization Details Last Updated DateTime 06/14/2023 190.5 cm 32.5 kg/m2 394265.02 g Sonny zaragoza MD, PHD [address] [place] [address], [address], [facility] 06/14/2023 11:51:08 Date Recorded Body height Body mass index (BMI) Body weight Provider Name and Address Organization Details Last Updated DateTime 12/19/2023 190.5 cm 30.6 kg/m2 248800.13 g Sonny zaragoza MD, PHD [address] [place] [address], [address], [facility] 12/19/2023 11:54:31 Date Recorded Body height Body mass index (BMI) Body weight Provider Name and Address Organization Details Last Updated DateTime 07/02/2024 190.5 cm 30.6 kg/m2 606932.13 tato Espinoza MD, PHD [address] [place] [address], [address] 07/02/2024 12:01:32 Date Recorded Body height Body mass index (BMI) Body weight Provider Name and Address Organization Details Last Updated DateTime 12/31/2024 190.5 cm 30.1 kg/m2 565688.76 g Sonny zaragoza MD, PHD [address] [facility] [address], [place], [address] 12/31/2024 11:49:51 Social History Question Answer Notes LastModified by Organizat ion Details LastModified Time Tobacco Smoking Status Never Smoker Shola Johnsonsteven [facility] 08/30/2020 09:30:06 What Is Your Level Of [...] mL dose, carolyne-sucrose 2 completed Not Available [facility] 12/31/2024 11:28:31 Influenza, adjuvanted, quadrivalent, PF 2 completed Not Available [facility] 12/31/2024 11:28:31 COVID-19, mRNA, LNP-S, bivalent, PF, 30 mcg/0.3 mL dose 2 completed Not Available [facility] 12/31/2024 11:28:31 Influenza, adjuvanted, quadrivalent, PF 3 completed Not Available [facility] 12/31/2024 11:28:31 RSV, recombinant, protein subunit RSVpreF, adjuvant reconstituted, 0.5 mL, PF 3 completed Not Available [facility] 12/31/2024 11:28:31 COVID-19, mRNA, LNP-S, PF, 50 mcg/0.5 mL 4 completed Not Available [facility] 12/31/2024 11:28:31 Influenza, adjuvanted, trivalent, PF 4 completed Not Available [facility] 12/31/2024 11:28:31 pneumococcal polysaccharide PPV23 4 completed Carolyn oconnor, [facility] 06/07/2022 14:54:29 Influenza, adjuvanted, trivalent, PF 9 completed Sonny Mckeon MD, PHD [address], [address], [facility] 06/14/2023 11:51:13 Influenza, adjuvanted, trivalent, PF 8 completed Sonny Mckeon MD, PHD [address] [facility],[address], [address], [facility] 06/14/2023 11:51:13 zoster recombinant 9 completed Sonny Mckeon MD, PHD [address] [place] [address], [address], [facility] 06/14/2023 11:51:13 zoster recombinant 9 completed Sonny Mckeon MD, PHD [address] [place] [address], [address], [facility] 06/14/2023 11:51:13 Influenza, high-dose, quadrivalent, PF 1 completed Sonny Mckeon MD, PHD [address] [place] [address], [address], [facility] 06/14/2023 11:51:13 Influenza, adjuvanted, quadrivalent, PF 0 completed Sonny Mckeon MD, PHD [address] [place] [address], [address], [facility] 06/14/2023 11:51:13 COVID-19, mRNA, LNP-S, PF, 30 mcg/0.3 mL dose 1 completed Sonny Mckeon MD, PHD [address] [place] [address], [address], [facility] 06/14/2023 11:51:13 COVID-19, mRNA, LNP-S, PF, 30 mcg/0.3 mL dose 1 completed Sonny Mckeon MD, PHD [address] [place] [address],[address], [address], [facility] 06/14/2023 11:51:13 COVID-19, mRNA, LNP-S, PF, 30 mcg/0.3 mL dose 1 completed Sonny Mckeon MD, PHD [address] [place] [address],[address], [address], [facility] 06/14/2023 11:51:14 Tdap 9 completed Sonny Mckeon MD, PHD [address] [place] [address],[place] [address], [place], [address], [facility] 06/14/2023 11:51:14 Tdap 9 completed Sonny Mckeon MD, PHD [address] [place] [address],[place] [address], [place], [address], [facility] 06/14/2023 11:51:14 Novel Hztzilxfo-A0W7-21, all formulations 9 completed Sonny Mckeon MD, PHD [address] [place] [address],[place] [address], [place], [address], [facility] 06/14/2023 11:51:14 zoster live 4 completed Sonny Mckeon MD, PHD [address] [place] [address],[place] [address], [place], [address], [facility] 06/14/2023 11:51:14 Influenza, high-dose, trivalent, PF 4 completed Sonny Mckeon MD, PHD [address] [place] [address],[place] [address], [place], [address], [facility] 06/14/2023 11:51:14 Influenza, high-dose, trivalent, PF 7 completed Sonny Mckeon MD, PHD [address] [place] [address],[place] [address], [place], [address], [facility] 06/14/2023 11:51:14 Influenza, split virus, trivalent, preservative 3 completed Sonny Mckeon MD, PHD [address] [place] [address],[place] [address], [place], [address], [facility] 06/14/2023 11:51:14 Influenza, split virus, trivalent, preservative 2 completed Sonny Mckeon MD, PHD [address] [place] [address],[place] [address], [place], [address], [facility] 06/14/2023 11:51:14 Influenza, split virus, trivalent, preservative 3 completed Sonny Mckeon MD, PHD [address] [place] [address],[address], [address], [facility] 06/14/2023 11:51:14 Influenza, split virus, trivalent, PF 1 completed Sonny Mckeon MD, PHD [address] [place] [address],[address], [address], [facility] 06/14/2023 11:51:14 Influenza, split virus, quadrivalent, PF 6 completed Sonny Mckeon MD, PHD [address] [place] [address], [address], [facility] 06/14/2023 11:51:14 Past Encounters Encounter ID Performer Location Encounter Start Date Encounter Closed Date Diagnosis/Indication Diagnosis SNOMED-CT Code Diagnosis ICD10 Code Diagnosis Note [id number] MD BONNY Oh_Georgina [employer] [address] [place] [address] 08/22/2020 09:36:29 08/22/2020 13:56:58 Prostate specific antigen above reference range 178626182 R97.20 - Now s/p biopsy - Will follow up in our [place] office in 2 weeks for biopsy results. [id number] MD Danelle Oh [employer] [address] [place] [address] 08/22/2020 09:41:01 08/25/2020 03:54:53 [id number] Stanley Rojas MD _Georgina [employer] [address] [place] [address] 08/30/2020 09:07:07 08/30/2020 11:57:23 Prostate specific antigen above reference range 347004672 R97.20 - Now s/p biopsy, pathology reviewed and questions answered. 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 I explained that men with low risk prostate cancer who are initially managed with active surveillan ce have an excellent chance to maintain a high quality of life without jeopardizi ng long-term survival.I also explained that active surveillan elana requires ongoing follow-up to monitor for cancer progressio n and he could require treatment for his cancer in the future. We will plan to check his PSA every 6 months and plan for repeat biopsy in 18 months with plan for surgery only if we see advancemen t of his disease. - Will plan to see him in 6 months with PSA in [place] office. [id number] MD BONNY KennedyEnedelia [address] [address],[address] [place] [address] 05/12/2021 10:48:42 05/12/2021 12:53:42 Malignant neoplasm of prostate 857629195 C61 Large prostate 733137768 N40.0 Prostate s pecific antigen above reference range 815090904 R97.20 [id number] MD BONNY KennedyEnedelia [address] [address],[address] [address] 06/13/2021 11:42:50 06/13/2021 14:19:29 Malignant neoplasm of prostate 009850592 C61 Primary er ectile dysfunction 863549079 N52.9 Large prostate 091619574 N40.0 History of malignant neoplasm of prostate 896341925 Z85.46 [id number] MD Danelle Kennedy [employer] [address] [place] [address] 07/19/2021 14:45:07 07/21/2021 09:16:04 Malignant neoplasm of prostate 342254150 C61 [id number] MD Danelle Kennedy [address] [place] [address] 08/23/2021 08:41:26 08/24/2021 11:24:49 Malignant neoplasm of prostate 639898198 C61 [id number] MD Danelle [address] [place] [address] 10/30/2021 10:17:37 11/02/2021 03:52:41 Malignant neoplasm of prostate 414638577 C61 10/[address] Gomez- here today for catheter removal. [id number] MD Danelle Kennedy [employer] [address] [place] [address] 12/13/2021 12:13:11 12/18/2021 13:45:35 Malignant neoplasm of prostate 598251764 C61 [id number] Sonny romero MD, PHD [facility] [employer] [address] [place] [address] 06/07/2022 14:42:08 06/08/2022 15:02:07 Malignant neoplasm of prostate 047596332 C61 [id number] Sonny romero MD, PHD [facility] [employer] [facility] [address] [place] [address] 12/12/2022 11:41:24 12/20/2022 14:05:19 Malignant neoplasm of prostate 823600359 C61 [id number] Sonny romero MD, PHD [facility] [employer] [facility] [address] [place] [address] 06/14/2023 11:46:22 06/26/2023 14:14:23 Malignant neoplasm of prostate 117748255 C61 [id number] Sonny romero MD, PHD [address] [place] [address] 12/19/2023 11:40:36 12/19/2023 15:14:47 Malignant neoplasm of prostate 311943114 C61 [id number] Sonny romero MD, PHD [facility] [employer] [facility] [address] [place] [address] 07/02/2024 11:29:50 07/06/2024 10:26:49 Malignant neoplasm of prostate 909384492 C61 [id number] Sonny romero MD, PHD [facility] [employer] [facility] [address] [place] [address] 12/31/2024 11:26:43 01/07/2025 10:14:26 Malignant neoplasm of prostate 407029514 C61 [id number] Sonny romero MD, PHD [facility] [address] [place] [address] 12/31/2024 11:26:43 12/31/2024 11:29:25 Health Concerns Section Related Observation LastModified by Organization Detai ls LastModified Time None Recorded Concern Status LastModified by Organization Details LastModified Time None Recorded Advance Directives Directive None Recorded Payers Insurance Date Sequence Insurance Name Policy Number Policy Brown Covered Member ID Brown Member ID Guarantor Name 01/07/2025 2 [place] [id number] Jayden Culver Saimatol [id number] Jayden Culver Saimatol 12/31/2024 1 [place] [employer] Jayden Culver Meierbachtol [id number] Jayden Culver Saimatol Notes Date Note Type Note Provider Name and Address Organization Details Recorded Time 06/14/2023 text/html 72M with [place] 4+3=7 prostate cancer. Here with . Now s/p cryoablation 10/26/21 ([facility]) for obstruction, with plan proposed for RT as definitive treatment. Has now completed [address] Kay to discuss RT; this has not been done. ADT start: 06/13/21Last ADT: Orgovyx; current LUTS: good FOS, Nocturia x 0-1, Moderate LUTS, QOL 3ADT: mod hot flashes some fatigue PMH: CAD s/p stents, STEMI ~2009 MRI (03/29/21): 73g, 3.9 cm anterior lesion abutting/bulge at anterior fibromuscular stromaBiopsy (05/12/21): 0/12 template cores, [place] 4+3=7 in 50% of MRI lesion; [place] 0.85 (high risk) PSA Results02/15/21 7. 0.234/ <0.049/ <0.064/02/22 <0.0410: <0.02 T level06/05/23: <3 Imaging:Bone scan (06/20/21): Scattered degenerative activity within appendicular skeleton. Negative for mets.DEXA scan 06/2022: normal bone mineral density FamHX:dementia Sonny Mckeon MD, PHD [address] [facility],[address], [place], [address], [facility] 06/14/2023 12:35:28 12/19/2023 text/html 73M with [place]is[place] 4+3=7 prostate cancer. Here with . No pain. No hematuria. Now s/p cryoablation 10/26/21 ([facility]) for obstruction, with plan proposed for RT as definitive treatment. Has now completed [address] Kay to discuss RT; this has not been done. ADT: 06/13/21- 06/2023; Orgovyx LUTS: good FOS, Nocturia x 0-1, Moderate LUTS, QOL 3ADT: now minimal hot flashes, some fatigue PMH: CAD s/p stents, STEMI ~2009 MRI (03/29/21): 73g, 3.9 cm anterior lesion abutting/bulge at anterior fibromuscular stromaBiopsy (05/12/21): 0/12 template cores, [place] 4+3=7 in 50% of MRI lesion; [place] 0.85 (high risk) PSA Results02/15/21 7. 0.234/ <0.049/ <0.064/02/22 <0.0410/12/23: <0.024/: 0.06 T level06/05/23: <34/: Imaging:Bone scan (06/20/21): Scattered degenerative activity within appendicular skeleton. Negative for mets.DEXA scan 06/2022: normal bone mineral density FamHX:dementia Sonny Mckeon MD, PHD [address] [facility],[address], [place], [address], [facility] 12/19/2023 12:16:58 07/02/2024 text/html 73M with [place] 4+3=7 prostate cancer. Here with . No pain. No hematuria. Now s/p cryoablation 10/26/21 ([facility]) for obstruction, with plan proposed for RT [...] anterior fibromuscular stromaBiopsy (05/12/21): 0/12 template cores, [place] 4+3=7 in 50% of MRI lesion; [place] 0.85 (high risk) PSA Results02/15/21 7. 0.234/ <0.049/ <0.064/02/22 <0.0410: <0.024: 0.: 0.10 T level06/05/23: <34: 162.: Imaging:Bone scan (06/20/21): Scattered degenerative activity within appendicular skeleton. Negative for mets.DEXA scan 06/2022: normal bone mineral density FamHX:dementia Sonny Mckeon MD, PHD [address] [place] [address],[facility] [address], [place], [address], [facility] 07/02/2024 12:26:13 12/31/2024 text/html 74M with [place] 4+3=7 prostate cancer. Here with . No pain. No hematuria. Now s/p cryoablation 10/26/21 ([facility]) for obstruction, with plan proposed [...] anterior fibromuscular stromaBiopsy (05/12/21): 0/12 template cores, [place] 4+3=7 in 50% of MRI lesion; [place] 0.85 (high risk) PSA Results02/15/21 7. 0.234/ <0.049/ <0.064/02/22 <0.0410/12/23: <0.024/: 0.: 0.105/09/26: 0.12 T level06/05/23: <34/: 162.: 234 Imaging:Bone scan (06/20/21): Scattered degenerative activity within appendicular skeleton. Negative for mets.DEXA scan 06/2022: normal bone mineral density FamHX:dementia Sonny Mckeon MD, PHD [address] [facility],[address], [place], [address], [facility] 12/31/2024 12:29:09
--- OUTSIDE RECORDS SUMMARY | 2025-01-07 20:52 | XMS_ITS | Clinical Summary ---
Author Organization [facility] Address [address] [place] [address] Care Team Providers Care Automobile Service Station Attendant Name Role Phone Unavailable Primary Care Provider Unavailabl e Source Comments Patient records contain information from all sites at [facility]. For routine questions regarding patient records, call [phone] during business hours, M-F 8:00 AM - 5:00 PM Central Time. Record requests for emergency care only can be directed to [phone] at any time.[facility] Allergies Active Allergy Reactions Criticality Noted Date Comments Amoxicillin Rash Low 10/06/2007 facial 1998 Lisinopril Cough 09/08/2020 Medications * This document contains information received from the source organization and may not represent a complete record from that organization. budesonide-form oteroL (SYMBICORT) 160-4.5 mcg/actuation inhaler Symbicort 160 mcg-4.5 mcg/actuation HFA aerosol inhaler 2 Active amLODIPine (NORVASC) 5 mg tablet amlodipine 5 mg tablet 1 Active aspirin [address] tablet Take 81 mg by mouth daily. 2 Active atorvastatin (LIPITOR) 40 mg tablet atorvastatin 40 mg tablet 1 Active docosahexaenoic acid-epa 120-180 mg capsule Take 2 g by mouth. Active metoprolol succinate (TOPROL-XL) 50 mg 24 hr tablet metoprolol succinate ER 50 mg tablet,extended release 24 hr 1 Active doxycycline hyclate (VIBRA-TABS) 100 mg tablet Take 50 mg by mouth. 1 Active fexofenadine (GRAHAM) 180 mg tablet Take 180 mg by mouth daily. 2 Active Active Problems Problem Noted Date Diagnosed Date Primary Malignant Neoplasm Of Prostate 2 Cancer Staging:Clinical stage from 05/12/2021:Stage IIC(cT1c, cN0, cM0, PSA: 7, Grade Group: 3) - Unsigned Immunizations Immunization Administration Dates Next Due DTaP (Infanrix, Tripedia) 11/16/2008 H1N1 All Forms 07/27/2009 Social History Tobacco Use Types Packs/Day Years Used Date Smoking Tobacco: Never Smokeless Tobacco: Never Alcohol Use Standard Drinks/Week Comments Yes 0 (1 standard drink = 0.6 oz pur e alcohol) Occasional Nutrition Answer Date Recorded Nutrition: EVOO Fat Source Unknown 12/15 Nutrition: Servings of Fruits/Vegetables per Day Not on file 12/15/2021 Dental Answer Date Recorded Dental: Regular Dentist Unknown 12/16/19 Sex and Gender Information Value Date Recorded Sex Assigned at Male 02/06/2022 5:15 PM CDT 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 Gender Identity Male 02/06/2022 5:15 PM CDT Sexual Orientation Not on file Last Filed Vital Signs Vital Sign Reading Time Taken Comments Blood Pressure 122/71 02/05/2022 9:03 AM CDT Pulse 63 02/05/2022 9:03 AM CDT Temperature 36.3 C (97.4 F) 02/05/2022 9:03 AM CDT Respiratory Rate - - Oxygen Saturation - - Inhaled Oxygen Concentration - - Weight 124 kg (272 lb 11.3 oz) 02/05/2022 9:03 A M CDT Height 189 cm (6' 2.41) 02/05/2022 9:03 AM CDT Body Mass Index 34.63 02/05/2022 9:03 AM CDT Plan of Treatment Health Maintenance Due Date Last Done Comments Hepatitis C Screening 1950 COVID-19 Vaccine ( season) 2024 08/11/2022, 12/27/2021, 06/01/2021, Additional history exists Influenza Vaccine (#1) 2024 3, 06/18/2022, 06/19/2021, Additional history exists Depression Screening (Annual PHQ-2) 09/02/2024 Fall Risk Screen (Annual) 09/02/2024 DTaP,Tdap,and Td Vaccines (3 - Td or Tdap) 05/13/2029 05/13/2019, 11/16/2008, 11/16/2008 Pneumococcal vaccine (50+ years) Completed 06/24/2015, 05/21/2014 Colonoscopy Discontinued 03/06/2018 Colonoscopy Discontinued 03/06/2018 Colorectal Cancer Screening Discontinued Colorectal Cancer Surveillance Discontinued Zoster Vaccines Completed 08/05/2019, 09/2018, 06/18/2014 RSV vaccine - (32-36 weeks) or 60+ years Completed 08/02/[address] Colonography Discontinued Cologuard Discontinued FIT Discontinued IPV Vaccines Aged Out No longer eligi ble based on patient's age to complete this topic Insurance MEDICARE [facility]
--- OUTSIDE RECORDS SUMMARY | 2025-01-07 20:52 | XMS_ITS | Clinical Summary ---
Author Organization [facility] Address [address] [place] [address] Care Team Providers Care Vibration Engineer Name Role Phone Richar Rivas MD Primary Care Provider [phone] Ambrosio Lizarraga MD Unavailable [phone] Allergies Active Allergy Reactions Criticality Noted Date Comments Amoxicillin Rash 10/06/2007 facial 1998 Lisinopril Cough 09/08/2020 Medications aspirin enteric coated 81 mg tablet Take 1 tablet by mouth once daily with a meal. 0 2 Active fexofenadine (GRAHAM) 180 mg tablet Take 180 mg by mouth once daily. Do not crush or chew. 0 2 Active CPAPIndications: CANDIE (obstructive sleep apnea) CPAP machine for home use at pressure 4-15, CPAP mask- mask of choice, fit to comfort one per 3 months 1 Each 11 4 Active Kksvn-8-RRM-EPA- Fish Oil (Fish OiL) 1,000 mg (120 mg-180 mg) cap Take by mouth. Active blood sugar diagnostic (Contour Next Test Strips) stripIndications :diabetes mellitus Dispense test strips covered by the patient insurance. Test 3 times per week 50 Each 12 4 Active lancets (Microlet Lancet)Indicatio ns:diabetes mellitus For testing blood sugars at home 3 times per week 100 Each 4 Active budesonide-formo teroL (Symbicort) 160-4.5 mcg/actuation (160-4.5 mcg each actuation) inhalerIndicatio ns:Asthma, unspecified asthma severity, unspecified whether complicated, unspecified whether persistent (HC) Inhale 2 Puffs by mouth two times daily. As needed 1 Each 11 4 Active atorvastatin (LIPITOR) 40 mg tabletIndication s:ASHD (arterioscleroti c heart disease) Take 1 Tablet (40 mg) by mouth once daily. 90 Tablet 4 4 Active amLODIPine (NORVASC) 5 mg tabletIndication s:HTN (hypertension) Take 1 Tablet (5 mg) by mouth once daily. 90 Tablet 3 4 Active metoprolol succinate (TOPROL XL) 50 mg sustained-releas e tabletIndication s:Coronary artery disease involving salam[place] coronary artery of salam[place]of heart without angina pectoris Take 1 Tablet (50 mg) by mouth once daily. 90 Tablet 3 4 Active doxycycline 100 mg tabletIndication s:Rosacea Take 0.5 Tablets (50 mg) by mouth once daily. This is the correct dose. 50 Tablet 2 4 Active Active Problems Problem Noted Date Diagnosed Date Type 2 diabetes mellitus wit h stage 3 chronic kidney disease, without long-term current use of insulin, unspecified whether stage 3a or 3b CKD 12/09/2024 Type 2 diabetes mellitus wit hout complication, without long-term current use of insulin 10/08/2023 Overview (10/08/2023): Diagnosed in 2022. Prostate cancer 08/16/2021 Hyperplastic colon polyp 03/07/2018 Overview (03/07/2018): Colonoscopy 03/2018 polyp, repeat in 10 years CANDIE 10/06/2014 AHI-16, all supine REM non-supine w as 11 10/18/2014 CKD (chronic kidney disease) stage 3, GFR 30-59 ml/min 12/17/2012 Hyperlipidemia LDL goal < 70 12/27/2010 CAD (coronary artery disease), salamatof coronary a rtery 12/27/2010 Acute myocardial infarction 11/10/2010 Hypertension 11/10/2010 Unspecified sinusitis (chronic) 10/19/2010 Rosacea 10/06/2007 Allergic rhinitis, cause unspecified Resolved Problems Problem Noted Date Diagnosed Date Resolved Date Other and unspecified hyperlipidemia 10/06/2007 12/27/2010 Encounters Date Type Department Care Team Description 12/09/2024 8:00 AM CDT Office Visit [facility] [address] [place] [address] Richar Rivas MD Medication Management (Med follow up) 12/09/2024 Travel 12/04/2024 8:00 AM CDT Orders Only [facility] [address] [place] [address] Lab, [place] [facility] 12/04/2024 Travel 12/03/2024 Travel from Last 3 Months Immunizations Immunization Administration Dates Next Due COVID-19 vaccine (Pfizer-Bio NTech 30mcg/0.3mL) 12YO+ BIVALENT PF, MDV 08/11/2022 COVID-19 vaccine (Pfizer-Bio NTech 30mcg/0.3mL) 12YO+ KAREN-SUCROSE PF, MDV 12/27/2021 COVID-19 vaccine (Pfizer-Bio NTech 30mcg/0.3mL) PF, MDV 11/25/2020,11/04/2020 Influenza A (H1N1), Inactivated 07/27/2009 Influenza A (H1N1), Live Intranasal 07/27/2009 Influenza, High-dose Inactivated 020,06/12/2017,06/24/2015,05/21 Influenza, High-dose Quadriv alent Inactivated 06/19/2021 Influenza, IIV3 (Age 6-35 mos) 06/22/2011 Influenza, IIV3 (Age >=3 years) 06/16/20 13,06/27/2012,06/22/2011,06/02 Influenza, IIV4 06/19/2016 Influenza, Inactivated AIIV4 (Age 65+ Years) Preserv Free 06/03/2023,06/18/2022,06/08/2020 Influenza, Inactivated IIV3 (Age 65+ Years) Preserv Free 06/02/2024,05/13/2019,06/18/2018 Pneumococcal Poly,23-Valent (Pneumovax) 05/21/2014 Pneumococcal conj 13-Valent (Prevnar 13) 06/24/2015 RSV, Recombinant ADJ Reconst ituted (Arexvy 120MCG/0.5mL) 08/02/2023 Tdap 05/13/2019,11/16/2008,11/16/2008 Zoster (Shingrix-RZV, recombinant) 08/05/2019, Zoster (Zostavax-ZVL, live) 06/18/2014 Family History Medical History Relation Name Comments Hypertension Father Other Father dementia develo ped at age 80, at age 90 Heart Disease Mother at age 84 Other Mother short term denise ry loss; [place] Pneumonia Mother of Pneumon ia and Dementia at 96 Other Sister polio (not much contact w family) Relation Name Status Comments Father Mother Sister Alive Social History Tobacco Use Types Packs/Day Years Used Date Smoking Tobacco: Never Passive Smoke Exposure: Never Smokeless Tobacco: Never Tobacco Cessation:Counseling Given: Not Answered Alcohol Use Standard Drinks/Week Comments No 0 (1 standard drink = 0.6 oz pur e alcohol) PHQ-2 Answer Date Recorded PHQ-2 TOTAL SCORE 0 06/10/2024 Social Connections Answer Date Recorded Do you often feel lonely or isolated from those around you? 0 06/10/2024 Financial Resource Strain Answer Date R ecorded Difficulty of Paying Living Expenses 3 06/10/2024 Difficulty of Paying Living Expenses Not on file 06/10/2024 Food Insecurity Answer Date Recorded Do you worry your food will run out before you are able to buy more? 1 06/10/2024 Transportation Needs Answer Date Record ed Does lack of transportation keep you from medica l appointments? 1 06/10/2024 Does lack of transportation keep you from work, meetings or getting things that you need? 1 06/10/2024 Housing Stability Answer Date Recorded What is your housing situation today? 1 06/10/2024 Utilities Answer Date Recorded Do you have trouble paying f or utilities (for example, heat, electricity, water, phone)? 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 Not on file Not on file Obstetrics History Last Filed Vital Signs Vital Sign Reading Time Taken Comments Blood Pressure 130/76 12/09/2024 8:17 AM CDT Pulse 62 12/09/2024 8:00 AM CDT Temperature 36.4 C (97.6 F) 06/10/2024 8:02 AM CDT Respiratory Rate 16 08/18/2023 3:20 PM PIZZA MAKER Oxygen Saturation 98% 12/09/2024 8:00 AM CDT Inhaled Oxygen Concentration - - Weight 113.3 kg (249 lb 12.8 oz) 12/09/2024 8:00 AM CDT Height 187.5 cm (6' 1.82) 06/10/2024 8:00 AM CD T Body Mass Index 32.23 06/10/2024 8:00 AM CDT Plan of Treatment Upcoming Encounters Date Type Department Care Team (Late st Contact Info) Description 03/29/2025 8:30 AM CDT Office Visit [facility] [address] [place] [address] Vicente Hayes MD [address] [place] [address] 06/09/2025 7:00 AM CDT Orders Only [facility] [address] [place] [address] Lab, [place] 06/16/2025 7:35 AM CDT Office Visit [facility] [address] [place] [address] Richar Rivas MD [address] [place] [address] Health Maintenance Due Date Last Done Comments COVID-19 vaccine series ( season) 2024 06/02/2024, 08/11/2022, 12/27/2021, Additional history exists BMI (ht and wt on same day) for age 18+ 06/10/2025 06/10/2024, 12/25/2023, 06/05/2023, Additional history exists Depression screening for age 12+ 06/10/2025 06/10/2024, 06/05/2023, 06/05/2023, Additional history exists Medicare Wellness for age 65+ 06/11/2025, 06/05/2023, 06/06/2022, Additional history exists Tetanus booster 05/13/2029 05/13/2019, 10/31, 11/16/2008 Pneumococcal series for age 50+ Completed 5, 05/21/2014 Tdap Completed 05/13/2019, 10/31, 11/16/2008 Zoster (shingles) series for age 50+ Completed 08/05/2019, 06/02/2019, 06/18/2014 Hepatitis C screening for ag e 18-79 Completed 06/06/2022 RSV vaccine for adults or Completed 08/02/2023 Influenza Vaccine Completed 06/02/2024, , 06/18/2022, Additional history exists Procedures Procedure Name Priority Date/Time Associated Diagnosis Comments URINE ALBUMIN TO CREATININE RATIO, RANDOM Routine 12/04/2024 8:10 AM CDT Type 2 diabetes mellitus without complication, without long-term current use of insulin (HC) HEMOGLOBIN A1C Routine 12/04/2024 7:56 AM CDT Type 2 diabetes mellitus without complication, without long-term current use of insulin (HC) BASIC METABOLIC PANEL Routine 12/04/2024 7:56 AM CDT Type 2 diabetes mellitus without complication, without long-term current use of insulin (HC) LIPID PANEL W REFLEX MEASURED LDL Routine 12/04/2024 7:56 AM CDT Type 2 diabetes mellitus without complication, without long-term current use of insulin (HC) ANTI HCV Routine 06/06/2022 10:10 AM CDT Need for hepatitis C screening test from Last 3 Months or Most Recently Relevant to Health Maintenance Results * (ABNORMAL) URINE ALBUMIN TO CREATININE RATIO, RANDOM (12/04/2024 8:10 AM CDT) ALB RAND URINE 87.5 mg/L 12/04/2024 6:45 PM CDT [facility] CREATININE,URIN E 2.04 g/L 12/04/2024 6:45 PM CDT [facility] ALBUMIN TO CREATININE RATIO,RAND UR 42.9(H) <30.0 mg/g creat 12/04/2024 6:45 PM CDT [facility] Urine URINE SPECIMEN / Unknown Non-Blood / Unknown 12/04/2024 8:10 AM CDT 12/04/2024 8:36 AM CDT Narrative [facility] - 12/04/2024 6:45 PM CDT If Albumin to Creatinine Ratio is elevated, consider the following: Elevations seen with incipient nephropathy associated with diabetes mellitus or hypertension. Stress, exercise,hematuria, and urinary tract infection may also produce elevated results. If clinically indicated, confirm with 24 Hour Albumin to Creatinine Ratio. Richar Rivas MD URINE Final Resu lt [facility] [address] [place] [address], [place] * (ABNORMAL) HEMOGLOBIN A1C (12/04/2024 7:56 AM CDT) HEMOGLOBIN A1C 6.9(H) <5.7 % of total Hgb [facility] Comment: For someone without known diabetes, a hemoglobin A1c value of 6.5% or greater indicates that they may have diabetes and this should be confirmed with a follow-up test. For someone with known diabetes, a value <7% indicates that their diabetes is well controlled and a value greater than or equal to 7% indicates suboptimal control. A1c targets should be individualized based on duration of diabetes, age, comorbid conditions, and other considerations. Currently, no consensus exists regarding use of hemoglobin A1c for diagnosis of diabetes for children. Blood BLOOD SPECIMEN / Unknown 12/04/2024 7:56 AM CDT 12/04/2024 7:56 AM CDT Narrative [facility] - 12/05/2024 5:50 AM CDT FASTING:YES FASTING: YES Richar Rivas MD CHEMISTRY Final Resu lt [facility] [place] [address] [address], [place] [phone] [facility] [address] [place] [address] * (ABNORMAL) LIPID PANEL W REFLEX MEASURED LDL (12/04/2024 7:56 AM CDT) [facility] Signature CHOLESTEROL, TOTAL 110 <200 mg/dL [facility] HDL CHOLESTEROL 33(L) > OR = 40 mg/dL [facility] TRIGLYCERIDES 114 <150 mg/dL [facility] LDL-CHOLESTEROL 57 mg/dL (calc) [facility] Comment: Reference range: <100 Desirable range <100 mg/dL for primary prevention; <70 mg/dL for patients with CHD or diabetic patients with > or = 2 CHD risk factors. LDL-C is now calculated using the Eris calculation, which is a validated novel method providing better accuracy than the Friedewald equation in the estimation of LDL-C. Yonatan SS et al. ELLIE. 2013;310(19): 9654-9438 (http://education.Fareye/faq/VHF081) CHOL/HDLC RATIO 3.3 <5.0 (calc) [facility] NON HDL CHOLESTEROL 77 <130 mg/dL (calc) [facility] Comment: For patients with diabetes plus 1 major ASCVD risk factor, treating to a non-HDL-C goal of <100 mg/dL (LDL-C of <70 mg/dL) is considered a therapeutic option. Blood BLOOD SPECIMEN / Unknown 12/04/2024 7:56 AM CDT 12/04/2024 7:56 AM CDT Narrative [facility] - 12/05/2024 4:13 AM CDT FASTING:YES FASTING: YES Richar Rivas MD CHEMISTRY Final Resu lt [facility] [place] [address] [facility] [address] [place] [place] [address], [facility] [address] [facility] [place] [address] * (ABNORMAL) BASIC METABOLIC PANEL (12/04/2024 7:56 AM CDT) [facility] GLUCOSE 119(H) 65 - 99 mg/dL [facility] Comment: Fasting reference interval For someone without known diabetes, a glucose value between 100 and 125 mg/dL is consistent with prediabetes and should be confirmed with a follow-up test. UREA NITROGEN (BUN) 20 7 - 25 mg/dL [facility] CREATININE 1.44(H) 0.70 - 1.28 mg/dL [facility] EGFR 50(L) > OR = 60 mL/min/1.7 3m2 [facility] BUN/CREATININE RATIO 14 6 - 22 (calc) [facility] SODIUM 140 135 - 146 mmol/L [facility] POTASSIUM 4.3 3.5 - 5.3 mmol/L [facility] CHLORIDE 105 98 - 110 mmol/L [facility] CARBON DIOXIDE 26 20 - 32 mmol/L [facility] ELECTROLYTE BALANCE 9 7 - 17 mmol/L (calc) [facility] CALCIUM 9.9 8.6 - 10.3 mg/dL [facility] Blood BLOOD SPECIMEN / Unknown 12/04/2024 7:56 AM CDT 12/04/2024 7:56 AM CDT Narrative [employer] [facility] - 12/05/2024 4:13 AM CDT FASTING:YES FASTING: YES us Richar Rivas MD CHEMISTRY Final Resu lt [employer] [facility] [address] [place] [address], [facility] [address] [place] [address] * ANTI HCV (06/06/2022 10:10 AM CDT) [facility] HEPATITIS C ANTIBODY Non-React phoenix Non-React ph[facility] 06/07/2022 4:24 AM CDT [facility] Comment:Antibodies to HCV no t detected; does not exclude the possibility of exposure to HCV. Blood BLOOD SPECIMEN / Unknown Venipuncture / Unknown 06/06/2022 10:10 AM CDT 06/06/2022 10:13 AM CDT us Richar Rivas MD SEND OUTS Final Resu lt [facility] [address] [place] [address], [place] from Last 3 Months or Most Recently Relevant to Health Maintenance Insurance MEDICARE PART B HB ONLY MEDICARE PART A HB ONLY MEDICARE PB ONLY [facility] Advance Directives * Full Code (Latest Code Status on File) Date Activated Date Inactivated Comments 11/10/2010 12:27 PM 11/12/2010 2:45 PM Care Teams Vibration Engineer Relationship Specialty Start Date End Date Richar Rivas MD [address] [place] [address] PCP - General 05/29/06 Ambrosio Lizarraga MD [address] [place] [address] Cardiology Cardiovascular Disease 09/22/14
--- OUTSIDE RECORDS SUMMARY | 2025-01-07 20:52 | XMS_ITS | Clinical Summary ---
Author Organization [facility] Address [address] [place] [address] Care Team Providers Care Metal Handler Name Role Phone Richar Rivas MD Primary Care Provider [phone] Allergies Active Allergy Reactions Criticality Noted Date Comments Amoxicillin Rash Low 10/25/2021 Lisinopril Cough 10/25/2021 Medications amLODIPine (NORVASC) 5 MG tablet Take 5 mg by mouth daily Active albuterol (PROAIR HFA/PROVENTIL HFA/VENTOLIN HFA) 108 (90 Base) MCG/ACT inhaler Inhale 2 puffs into the lungs every 6 hours Active aspirin 81 MG EC tablet Take 81 mg by mouth daily Active atorvastatin (LIPITOR) 40 MG tablet Take 40 mg by mouth daily Active cefPROZIL (CEFZIL) 500 MG tablet Take 500 mg by mouth 2 times daily Active nitroGLYcerin (NITROSTAT) 0.[address] 0.4 mg under the tongue every 5 minutes as needed for chest pain For chest pain place 1 tablet under the tongue every 5 minutes for 3 doses. If symptoms persist 5 minutes after 1st dose call 911. Active metoprolol succinate ER (TOPROL-XL) 50 MG 24 hr tablet Take 50 mg by mouth daily Active fexofenadine (GRAHAM) 180 MG tablet Take 180 mg by mouth daily Active doxycycline hyclate (VIBRAMYCIN) 100 MG capsule Take 100 mg by mouth 2 times daily Active fish oil-omega-3 fatty acids 1000 MG capsule Take 2 g by mouth 2 times daily Active HYDROcodone-carlos taminophen (NORCO) 5-325 MG tabletIndicatio ns:Prostate cancer (H) Take 1-2 tablets by mouth every 4 hours as needed for moderate to severe pain 5 tablet 10/26/2021 Active Immunizations Immunization Administration Dates Next Due Pneumococcal 23 valent 05/21/2014 Social History Tobacco Use Types Packs/Day Years Used Date Smoking Tobacco: Never Smokeless Tobacco: Never Alcohol Use Standard Drinks/Week Comments Not Currently 0 (1 standard drink = 0.6 oz pur e alcohol) Adolescent Education Answer Date Record ed Getting School Help Needed Not on file 06/09 Sex and Gender Information Value Date Recorded Sex Assigned at Male 10/16/2021 11:49 AM DIRECTOR DIGITAL ANALYTICS Legal Sex Male 3:11 AM DIRECTOR DIGITAL ANALYTICS Gender Identity Male 10/16/2021 11:49 AM DIRECTOR DIGITAL ANALYTICS Sexual Orientation Straight 10/16/2021 11 :49 AM DIRECTOR DIGITAL ANALYTICS Last Filed Vital Signs Vital Sign Reading Time Taken Comments Blood Pressure 142/89 10/26/2021 2:20 PM DIRECTOR DIGITAL ANALYTICS Pulse 72 10/26/2021 2:20 PM DIRECTOR DIGITAL ANALYTICS Temperature 36.2 C (97.2 F) 10/26/2021 2:20 PM DIRECTOR DIGITAL ANALYTICS Respiratory Rate 16 10/26/2021 2:20 PM DIRECTOR DIGITAL ANALYTICS Oxygen Saturation 98% 10/26/2021 2:20 PM DIRECTOR DIGITAL ANALYTICS Inhaled Oxygen Concentration - - Weight 116.2 kg (256 lb 1.6 oz) 10/26/2021 9:03 AM DIRECTOR DIGITAL ANALYTICS Height 190.5 cm (6' 3) 10/26/2021 9:03 AM DIRECTOR DIGITAL ANALYTICS Body Mass Index 32.01 10/26/2021 9:03 AM DIRECTOR DIGITAL ANALYTICS Plan of Treatment Not on file Insurance MEDICARE [employer] [place] MEDICARE SUPPLEMENT Care Teams Metal Handler Relationship Specialty Start Date End Date Richar Rivas MD PCP - General Family Medicine 10/03/21
== END 2025-01-07 20:48 | disposition home or self-care (01) ==
PROVIDERS: Emergency Provider Student in an Organized Health Care Education/Training Program; PCP Family Medicine
DX: N13.2 Hydronephrosis with renal and ureteral calculous obstruction (principal)
CPT/HCPCS: 36415; 74177; 80053; 81001; 82565; 85025; 87086; 99284; 99285; Q9967

== ENCOUNTER 2025-04-03 07:32 | Emergency (ER) | payer MEDICARE, BC, SELFPAY ==
--- OUTSIDE RECORDS SUMMARY | 2025-04-03 07:34 | XMS_ITS | Clinical Summary ---
Author Organization [facility] Address [address] [place] [address] Care Team Providers Care Retoucher Name Role Phone Richar Rivas MD Primary Care Provider [phone] Allergies Active Allergy Reactions Criticality Noted Date [...] Sex Assigned at Male 10/16/2021 11:49 AM TRANSCRIBING OPERATOR HEAD Legal Sex Male 3:11 AM TRANSCRIBING OPERATOR HEAD Gender Identity Male 10/16/2021 11:49 AM TRANSCRIBING OPERATOR HEAD Sexual Orientation Straight 10/16/2021 11 :49 AM TRANSCRIBING OPERATOR HEAD Last Filed Vital Signs Vital Sign Reading Time Taken Comments Blood Pressure 142/89 10/26/2021 2:20 PM TRANSCRIBING OPERATOR HEAD Pulse 72 10/26/2021 2:20 PM TRANSCRIBING OPERATOR HEAD Temperature 36.2 C (97.2 F) 10/26/2021 2:20 PM TRANSCRIBING OPERATOR HEAD Respiratory Rate 16 10/26/2021 2:20 PM TRANSCRIBING OPERATOR HEAD Oxygen Saturation 98% 10/26/2021 2:20 PM TRANSCRIBING OPERATOR HEAD Inhaled Oxygen Concentration - - Weight 116.2 kg (256 lb 1.6 oz) 10/26/2021 9:03 AM TRANSCRIBING OPERATOR HEAD Height 190.5 cm (6' 3) 10/26/2021 9:03 AM TRANSCRIBING OPERATOR HEAD Body Mass Index 32.01 10/26/2021 9:03 AM TRANSCRIBING OPERATOR HEAD Plan of Treatment Health Maintenance Due Date Last Done Comments ADVANCE CARE PLANNING 1950 ANNUAL REVIEW OF HM ORDERS 1950 HEPATITIS C SCREENING 1966 FALL RISK ASSESSMENT 2013 LIPID 06/22/2021 06/22/2020 DIABETES SCREENING 06/22/2023 06/22/2020 PHQ-2 (once per calendar year) 2024 COVID-19 VACCINE ( season) 2024 06/02/2024, 08/11/2022, 12/27/2021, Additional history exists INFLUENZA VACCINE (#1) 2025 , 06/03/2023, 06/18/2022, Additional history exists DTAP/TDAP/TD VACCINE (3 - Td or Tdap) 05/13/2029 05/13/2019, 11/16/2008 PNEUMOCOCCAL VACCINE 50+ YEARS Completed 06/24/2015, 05/21/2014 COLONOSCOPY Discontinued 03/06/2018 COLORECTAL CANCER SCREENING Discontinued ZOSTER VACCINE Completed 08/05/2019, 09/2018, 06/18/2014 RSV VACCINE Completed 08/02/2023 CT COLONOGRAPHY Discontinued FIT Discontinued FLEX SIG Discontinued HPV VACCINE (No Doses Required) Completed MENINGITIS VACCINE Aged Out No longer eligible based on patient's age to complete this topic sDNA (Cologuard) Discontinued Procedures Procedure Name Priority Date/Time Associated Diagnosis Comments GLUCOSE (EXTERNAL RESULT) Routine 06/22/2020 10:42 AM CDT LIPID PANEL (EXTERNAL RESULT) Routine 06/22/2020 10:42 AM CDT COLONOSCOPY - HIM SCAN Routine 03/06/2018 from Last 3 Months or Most Recently Relevant to Health Maintenance Results * (ABNORMAL) Lipid Panel (External Result) (06/22/2020 10:42 AM CDT) Cholesterol (External) 125 100 - 199 mg/dL [facility] Triglycerides (External) 163(H) <150 mg/dL [facility] HDL Cholesterol (External) 28(L) >40 mg/dL [facility] LDL Cholesterol (External) 64 <=130 mg/dL [facility] Non HDL Cholesterol (External) 97 <145 mg/dL [facility] Blood 06/22/2020 10:4 2 AM CDT Narrative [facility] - 06/22/2020 10:42 AM CDT Care Everywhere, [facility] us Provider Outside LAB - HIM EXTERNAL RESULT Final Result [facility] [address] [place] [address], [facility] * Glucose (External Result) (06/22/2020 10:42 AM CDT) Glucose (External) 100 65 - 100 mg/dL [facility] [employer] Blood 06/22/2020 10:4 2 AM CDT Narrative [facility] [employer] [facility] - 06/22/2020 10:42 AM CDT Care Everywhere, [facility] us Provider Outside LAB - HIM EXTERNAL RESULT Final Result [facility] [employer] [facility] [address] [place] [address], [facility] * Colonoscopy - HIM Scan (03/06/2018) Narrative Renita Nell Mitzy - 03/06/2018 Care Everywhere, [facility] us Provider Outside PROCEDURES Final Result from Last 3 Months or Most Recently Relevant to Health Maintenance Insurance MEDICARE [facility] OF IN MEDICARE SUPPLEMENT Care Teams Retoucher Relationship Specialty Start Date End Date Richar Rivas MD PCP - General Family Medicine 10/03/21
--- OUTSIDE RECORDS SUMMARY | 2025-04-03 07:34 | XMS_ITS | Clinical Summary ---
Author Organization [facility] Address [address] [place] [id number] Care Team Providers Care Mess Cook Name Role Phone Unavailable Primary Care Provider Unavailabl e Source Comments Patient records contain information from all sites at [facility]. For routine questions regarding patient records, call [phone] during business hours, M-F 8:00 AM - 5:00 PM Central Time. Record requests for emergency care only can be directed to [phone] at any time.[facility] Allergies Active Allergy Reactions Criticality Noted [...] = 0.6 oz pur e alcohol) Occasional Sex and Gender Information Value Date Recorded Sex Assigned at Male 02/06/2022 5:15 PM CDT Legal Sex Male 10:22 AM ACRYLIC FABRICATOR Gender Identity Male 02/06/2022 5:15 PM CDT [...] 2024 08/11/2022, 12/27/2021, 06/01/2021, Additional history exists Depression Screening (Annual PHQ-2) 09/02/2024 Fall Risk Screen (Annual) 09/02/2024 Influenza Vaccine (#1) 2025 3, 06/18/2022, 06/19/2021, Additional history exists DTaP,Tdap,and Td Vaccines (3 - Td or [...] age to complete this topic Insurance MEDICARE [facility]
[2025-04-03 07:35] VITALS: BP 105/67; PULSE 80; RESP 16; TEMP 36.2; O2SAT 96; BMI 31.0
--- OUTSIDE RECORDS SUMMARY | 2025-04-03 07:35 | XMS_ITS | Clinical Summary ---
Author Organization [facility] Address [address] [place] [address] Care Team Providers Care Eeo Officer Name Role Phone Richar Rivas MD Primary Care Provider [phone] Ambrosio Lizarraga MD Unavailable [phone] Allergies Active Allergy Reactions Criticality Noted Date Comments Amoxicillin Rash High 10/06/2007 facial 1998 Lisinopril Cough 09/08/2020 Medications aspirin enteric coated 81 mg tablet Take 1 tablet by mouth once daily with a meal. 0 2 Active fexofenadine (GRAHAM) 180 mg tablet Take 180 mg by mouth once daily. Do not crush or chew. 0 2 Active Nrrmv-6-[id number]-EPA -Fish Oil (Fish OiL) 1,000 mg (120 mg-180 mg) cap Take 1 Capsule by mouth once daily. Active blood sugar diagnostic (Contour Next Test Strips) stripIndication s:diabetes mellitus Dispense test strips covered by the patient insurance. Test 3 times per week 50 Each 12 4 Active lancets (Microlet Lancet)Indicati ons:diabetes mellitus For testing blood sugars at home 3 times per week 100 Each 4 Active budesonide-form oteroL (Symbicort) 160-4.5 mcg/actuation (160-4.5 mcg each actuation) inhalerIndicati ons:Asthma, unspecified asthma severity, unspecified whether complicated, unspecified whether persistent (HC) Inhale 2 Puffs by mouth two times daily. As needed 1 Each 11 4 Active atorvastatin (LIPITOR) 40 mg tabletIndicatio ns:ASHD (arteriosclerot ic heart disease) Take 1 Tablet (40 mg) by mouth once daily. 90 Tablet 4 4 Active amLODIPine (NORVASC) 5 mg tabletIndicatio ns:HTN (hypertension) Take 1 Tablet (5 mg) by mouth once daily. 90 Tablet 3 4 Active metoprolol succinate (TOPROL XL) 50 mg sustained-relea se tabletIndicatio ns:Coronary artery disease involving gambell coronary artery of gambell heart without angina pectoris Take 1 Tablet (50 mg) by mouth once daily. 90 Tablet 3 4 Active doxycycline 100 mg tabletIndicatio ns:Rosacea Take 0.5 Tablets (50 mg) by mouth once daily. This is the correct dose. 50 Tablet 2 4 Active CPAPIndications :CANDIE (obstructive sleep apnea) RESMED CPAP (E0601) machine for home use at pressure: 4-15cmw, Choice of mask (A7030 or A7034) w/full face cushion (A7031) x1/mo, nasal cushion (A7032) x2/mo, or nasal pillows (A7033) x 2/mo; Length of Need: 99 months; Frequency of use: Daily 1 Each 5 Active docusate (COLACE) 100 mg capsuleIndicati ons:Calculus of kidney Take 1 Capsule (100 mg) by mouth two times daily. 20 Capsule 03/31/2025 5:24 PM CDT 5 Active oxyCODONE (ROXICODONE) 5 mg immediate release tabletIndicatio ns:Calculus of kidney Take 1 Tablet (5 mg) by mouth every 6 hours if needed for Pain. 10 Tablet 04/01/2025 3:50 PM CDT 5 Active CPAPIndications :CANDIE (obstructive sleep apnea) CPAP machine for home use at pressure 4-15, CPAP mask- mask of choice, fit to comfort one per 3 months 1 Each 11 4 03/29/20 25 Discontinu ed(*Med complete/R egimen complete/L evel of care change) Active Problems Problem Noted Date Diagnosed Date Left nephrolithiasis 04/01/2025 Type 2 diabetes mellitus wit h stage [...] < 70 12/27/2010 CAD (coronary artery disease), gambell coronary a rtery 12/27/2010 Acute myocardial infarction 11/10/2010 Hypertension 11/10/2010 Unspecified sinusitis (chronic) 10/19/2010 Rosacea 10/06/2007 Allergic rhinitis, cause unspecified Resolved Problems Problem Noted Date Diagnosed Date Resolved Date Other and unspecified hyperlipidemia 10/06/2007 12/27/2010 Encounters Date Type Department Care Team Description 04/02/2025 Travel 04/01/2025 Orders Only [facility] [address] [place] [address] Rebeka Marquis <No scans attached> 04/01/2025 Orders Only [facility] [address] [place] [address] Isi Aguilar <No scans attached> 04/01/2025 Orders Only [facility] [address] [place] [address] Jeff Isi <No scans attached> 04/01/2025 Orders Only [facility] [address] [place] [address] Rebeka Marquis <No scans attached> 03/31/2025 12:43 PM CDT Anesthesia Event [facility] [address] [place] [address] Lynn Newton CRNA 03/31/2025 11:15 AM CDT - 03/31/2025 1:43 PM CDT Surgery [facility] [address] [place] [address] [place] [address] Sonny Mckeon MD LEFT PERCUTANEOUS NEPHROLITHOTOMY, LEFT ANTEGRADE NEPHROSTOGRAM, CYSTOSCOPY WITH LEFT RETROGRADE 03/31/2025 7:46 AM CDT - 04/02/2025 1:30 PM CDT Hospital Encounter [facility] [address] [place] [address] [place] [address] Sonny Mckeon MD Calculus of kidney Discharge Disposition: Home Self Care 03/30/2025 Travel 03/29/2025 10:15 AM CDT Orders Only [facility] [address] [facility] [address] Lab [place] Lab 03/29/2025 8:30 AM CDT Office Visit [facility] [address] [facility] [address] Vicente Hayes MD Sleep Follow-up 03/29/2025 Travel 03/27/2025 Orders Only [facility] Scanner 1 scan: (1-Ord) [facility], COMPLIANCE REPORT, 03/27/2025 03/24/2025 Travel 03/10/2025 4:05 PM CDT Office Visit [facility] [address] [place] [address] Richar Rivas MD Preoperative Exam (Kidney stone /Surgery 03/31/2025) 03/10/2025 Travel 02/22/2025 Travel 02/14/2025 Telephone [facility] [address] [place] [address] Richar Rivas MD Abnormal Lab Results 02/02/2025 10:50 AM CDT Office Visit [facility] [address] [facility] [address] Richar Rivas MD Preoperative Exam (Kidney stone/02/23/25 ANW/Dr. Mckeon) 02/02/2025 Travel 01/28/2025 Travel 01/18/2025 Orders Only [facility] [address] [place] [address] [place] [address] Rebeka Marquis 1 scan: Neph Tube & PCNL 01/07/2025 Orders Only [facility] Scanner 1 scan: (1-Ord) [facility], ABDOMEN PELVIS W CON , 01/07/2025 from Last 3 Months Immunizations Immunization Administration [...] is your housing situation today? 1 06/10/2024 Interpersonal Safety Answer Date Record ed Are you being hit, kicked, p ushed or yelled at (see row info)? No 03/31/2025 Interpersonal Safety Abuse 12 - 18 Not on file 03/31/2025 Interpersonal Safety Ambulatory Vulnerability No t on file 03/31/2025 Utilities Answer Date Recorded Do you have trouble paying f or utilities (for example, heat, electricity, water, phone)? 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 Not on file Not on file Obstetrics History Last Filed Vital Signs Vital Sign Reading Time Taken Comments Blood Pressure 141/67 04/02/2025 7:54 AM CDT Pulse 78 04/02/2025 7:54 AM CDT Temperature 36.9 C (98.4 F) 04/02/2025 7:54 AM CDT Respiratory Rate 16 04/02/2025 7:54 AM CDT Oxygen Saturation 97% 04/02/2025 7:54 AM CDT Inhaled Oxygen Concentration - - Weight 107 kg (236 lb) 04/02/2025 5:29 AM CDT Height 188 cm (6' 2) 03/31/2025 8:35 AM CDT Body Mass Index 30.3 03/31/2025 8:35 AM CDT Plan of Treatment Upcoming Encounters Date Type Department Care Team (Late st Contact Info) Description 04/07/2025 7:35 AM CDT Office Visit [facility] [address] [place] [address] Richar Rivas MD [address] [place] [address] 06/09/2025 7:00 AM CDT Orders Only [facility] [address] [place] [address] Lab, [place] 07/06/2025 1:55 PM OYSTER HARVESTER Office Visit [facility] [address] [place] [address] Richar Rivas MD [address] [place] [address] Health Maintenance Due Date Last Done Comments COVID-19 vaccine series ( season) 2024 06/02/2024, 08/11/2022, 12/27/2021, Additional history exists Influenza Vaccine (#1) 2025 , 06/03/2023, 06/18/2022, Additional history exists Depression screening for age 12+ 06/10/2025 06/10/2024, 06/05/2023, 06/05/2023, Additional history exists Medicare Wellness for age 65+ 06/11/2025 06/10/2024, 06/05/2023, 06/06/2022, Additional history exists BMI (ht and wt on same day) for age 18+ 03/29/2026 03/29/2025, 03/10/2025, 02/02/2025, Additional history exists Tetanus booster 05/13/2029 05/13/2019, 10/31, 11/16/2008 Pneumococcal series for age 50+ Completed 06/24/2015, 05/21/2014 Zoster (shingles) series for age 50+ Completed 08/05/2019, 06/02/2019, 06/18/2014 Hepatitis C screening for age 18-79 Completed 06/06/2022 RSV vaccine for adults or Completed 08/02/2023 Hepatitis B series for 19+ Aged Out N o longer eligible based on patient's age to complete this topic Medical Devices Implanted Type Area Airway Controller Device Identifier Shelf Expiration Date Model / Serial / Lot Cath Drainage 8.5fr Implanted:Qty: 1 on 03/31/2025 by Sonny Mckeon MD at [facility] Left: Kidney 12/10/2025 [id number] - / / [id number] Description:CATH DRAINAGE 8. 5FR Procedures Procedure Name Priority Date/Time Associated Diagnosis Comments CREATININE Today 04/02/2025 9:55 AM CDT IR NEPHROSTOMY TUBE LEFT Routine 025 9:42 PM CDT CREATININE Early AM 04/01/2025 7:42 AM CDT HEMOGLOBIN Early AM 04/01/2025 7:42 AM CDT XR RETROGRADE PYELOGRAM W/WO KUB Routine 03/31/2025 3:46 PM CDT IR NEPHROSTOLITHOTOMY PERCUTANEOUS LEFT Routine 03/31/2025 3:14 PM CDT Calculus of kidney ENDOTRACHEAL TUBE Routine 03/31/2025 12: 59 PM CDT ENDOTRACHEAL TUBE Routine 03/31/2025 12: 59 PM CDT IR NEPHROSTOMY TUBE LEFT Routine 025 12:25 PM CDT Calculus of kidney CREATININE STAT 03/31/2025 8:47 AM CDT PROTIME-INR STAT 03/31/2025 8:47 AM CDT PLATELET COUNT STAT 03/31/2025 8:47 AM CDT HEMOGLOBIN STAT 03/31/2025 8:47 AM CDT GLUCOSE METER Timed 03/31/2025 8:30 AM CDT SCAN-CARDIAC STRIP 03/31/2025 12 :00 AM CDT BASIC METABOLIC PANEL Routine 03/29/2025 10:12 AM CDT Type 2 diabetes mellitus with stage 3 chronic kidney disease, without long-term current use of insulin, unspecified whether stage 3a or 3b CKD (HC) SCAN-DIAGNOSTIC REPORT 5 12:00 AM CDT POTASSIUM Routine 02/02/2025 12:29 PM CDT Preoperative general physical examination CREATININE Routine 02/02/2025 12:29 PM CDT Preoperative general physical examination SCAN-CT INTERPRETATION 5 12:00 AM CDT ANTI HCV Routine 06/06/2022 10:10 AM CDT Need for hepatitis C screening test from Last 3 Months or Most Recently Relevant to Health Maintenance Results * (ABNORMAL) CREATININE (04/02/2025 9:55 AM CDT) Only the most recent of4 resultswithin the time period is included. eGFR 61(L) >90 mL/min/1.7 3m2 04/02/2025 10:50 AM CDT [facility] Comment:As of 2021, eG FR is calculated by the CKD-EPI creatinine equation without race adjustment. eGFR can be influenced by muscle mass, exercise, and diet. The reported eGFR is an estimation only and is only applicable if the renal function is stable. CREATININE 1.22(H) 0.70 - 1.20 mg/dL 04/02/2025 10:50 AM CDT [facility] Blood BLOOD SPECIMEN / Unknown Butterfly / Unknown 04/02/2025 9:55 AM CDT 04/02/2025 10:15 AM CDT us Zhane US CHEMISTRY Final R esult [facility] [address] [place] [address], [place] * IR NEPHROSTOMY TUBE LEFT (04/01/2025 9:42 PM CDT) Only the most recent of2 resultswithin the time period is included. Anatomical Region Laterality Modality KIDNEY L X-Ray Angiograph y Narrative 04/01/2025 10:12 PM CDT Procedure: 1. Percutaneous left nephrostomy tube placement under sonographic and fluoroscopic guidance. 2. Antegrade nephrostogram. Indication: Nephrolithiasis, superior pole access unsuccessful in lithotripsy, request lower pole access. Comparison: PCN placement and lithotripsy from 1 day prior Interventionalist: Lisa Bettencourt MD Fluoroscopy time: 3 minutes. Reference air kerma: 78 mGy. Contrast: 10 mL Estimated Blood Loss: <10 mL Medications: midazolam 2 mg IV, fentanyl 100 mcg IV, Rocephin 1 gm IV, 1% lidocaine 10 mL subcutaneous. Sedation: Moderate Conscious sedation: 30 minutes of intraservice time. The sedation was supervised by myself and the patient's vital signs were actively monitored by an independent registered nurse. Complications: None immediate. Technique: The procedure, risks, and alternative therapies were discussed in detail, and written informed consent was obtained. A time out was performed to verify correct patient and procedure. Moderate sedation was administered as above. The patient's pulse oximetry, EKG, and blood pressure were monitored by the interventional radiology nurse at all times. The left flank was prepped and draped in the usual sterile fashion. All elements of maximum sterile barrier technique were used. Initial ultrasound scanning demonstrated a dilated left collecting system. Under ultrasound guidance, a posterior inferior calyx was targeted and an 22 gauge trocar needle was advanced into the collecting system. An ultrasound image was saved and sent to PACS. Appropriate position within the collecting system was confirmed with injection of contrast. The access was dilated with an AccuStick set and an Amplatz wire was placed in the renal pelvis. The tract was dilated. 8 Uzbek Mitchell-Cabezas nephrostomy catheter was inserted over the wire and a loop was formed in the renal pelvis. Contrast injection demonstrates good placement of the pigtail loop within the renal pelvis. The pigtail loop was locked. It was secured to the skin with 2-0 Ethilon suture and a Mario disc, covered with a sterile dressing, and connected to a drainage bag. The superior pole access was then removed over a wire. The patient tolerated the procedure well without immediate post procedural complication. Findings: Initial ultrasound demonstrates a minimally dilated left collecting system with stones in the lower pole and renal pelvis. 8 Uzbek nephrostomy tube was placed uneventfully into the lower pole. Completion antegrade nephrostogram demonstrates satisfactory position of the pigtail at the renal pelvis stone. Extravasation at the ureteropelvic junction is noted similar to 1 day prior. Impression: Successful placement of a left 8 Uzbek nephrostomy tube using ultrasound and fluoroscopic guidance. Jo US IR Final Re sult * Hemoglobin (04/01/2025 7:42 AM CDT) Only the most recent of2 resultswithin the time period is included. HEMOGLOBIN 13.7 13.5 - 17.5 g/dL 04/01/2025 8:45 AM CDT [facility] MCV 90 80 - 100 fL 04/01/2025 8:45 AM CDT [facility] Blood BLOOD SPECIMEN / Unknown Butterfly / Unknown 04/01/2025 7:42 AM CDT 04/01/2025 8:10 AM CDT Brandy US HEMATOLOGY Final R esult [facility] [address] [place] [address], [place] * XR RETROGRADE PYELOGRAM W/WO KUB (03/31/2025 3:46 PM CDT) Anatomical Region Laterality Modality KIDNEYS, Abdomen Digital Radiogr aphy Narrative 03/31/2025 3:46 PM CDT 1 minute 7 seconds fluoroscopy time was provided. See operative/procedure report for further information. us Sonny Mckeon MD GENERAL IMAGING Fi nal Result * IR NEPHROSTOLITHOTOMY PERCUTANEOUS LEFT (03/31/2025 3:14 PM CDT) Anatomical Region Laterality Modality KIDNEY L X-Ray Angiograph y, Other Impressions 03/31/2025 4:24 PM CDT 1. Percutaneous left nephrostomy tract access dilatation using angioplasty with 30 Fr sheath placement. 2. Removal of 30F sheath following nephrolithotomy (by Urology) followed by placement of an 8 Fr pigtail catheter in left nephrostomy access. Narrative 03/31/2025 4:24 PM CDT PROCEDURE(S): 1. Percutaneous left nephrostomy tract access dilatation using angioplasty with 30F sheath placement. 2. Removal of 30F sheath following nephrolithotomy (by Urology) followed by placement of a 8 in left nephrostomy access site. INDICATION: nephrolithiasis INTERVENTIONAL RADIOLOGIST: Lisa Bettencourt MD UROLOGIST: Mike SEDATION: General IMPLANTED DEVICE(S): 8 F PCN ESTIMATED BLOOD LOSS: see urology report COMPLICATIONS: urinary extravasation FLUOROSCOPY TIME: 14.5 minutes RADIATION DOSE: 257 mGy CONSENT: The risks, benefits, and alternatives of the planned procedure were explained in detail to the patient and/or patient's family/DPOA. Questions were answered, and a written informed consent was obtained. TIME OUT: A verification process was completed by the entire team to confirm the patient, procedure, site, allergies, etc. STERILE PREPARATION: All elements of maximal sterile barrier technique were followed, including use of cap, mask, gown, gloves, drapes, chlorhexidine 2%/isopropyl alcohol/povidone-iodine, and hand hygiene. TECHNIQUE: I was called into the operating room for nephrostomy tract access dilatation. When I arrived, the patient was intubated under general anesthesia. Patient was prone on the OR table, and the left flank had been prepped and draped in the usual sterile fashion. A 7 F sheath was in place in the nephrostomy access site. Through the sheath, two Amplatz wires were advanced into the urinary bladder. The sheath was removed. One of the wires was coiled and secured to the side to serve as a safety wire. Over the other wire, a tract master balloon was inserted and positioned between the renal pelvis and skin access site. The balloon was used to dilate the tract, allowing placement of a 30 F sheath into the renal collecting system. At this time urology performed nephrolithotomy (see separate report). Following the nephrolithotripsy, the 30F sheath was removed over wire, and 14 F catheter was attempted to be placed in the nephrostomy access over wire and pigtail was formed presumably in the left renal pelvis. However, on contrast injection, the catheter appeared extra pelvic. The wire was replaced through the catheter and the catheter was exchanged for a kumpe catheter. The kumpe catheter was retracted while puffing contrast until it was definitely in the renal pelvis. An 8 F PCN was then advanced over the wire and coiled in the renal pelvis. Contrast injection demonstrates good placement within the renal pelvis. The tube was sutured into place, covered with a sterile dressing, and connected to a drainage bag. The patient tolerated the procedure. Fluoroscopy was used intermittently throughout the case. FINDINGS/ us Jo US IR Final Re sult * HCHG TUBE PR1, HCHG STYLET PR1 (03/31/2025 12:59 PM CDT) Narrative Lynn Newton CRNA - 03/31/2025 12:59 PM CDT Lynn Newton CRNA 03/31/2025 1:00 PM Procedure: ETT Patient location during procedure: OR ETT Properties Mask Ventilation: oral airway and easy Final Technique: direct laryngoscopy Type: straight Location: oral Cuffed: yes Tube Size: 7.5 mm Stylet: yes Laryngoscope Blade: Byrd Blade Size: 2 Cormack-Lehane Grade View: 1 Insertion Attempts: 1 Placement Verification: auscultation, end tidal CO2 and symmetrical chest wall movement Assessment: pharynx clear, atraumatic and dentition unchanged Secured at: 22 Measured From: lips Difficulty: 0 (not difficult) Cody Henderson MD ANESTHESIA PX NOTE O RDERABLES Final Result * Platelet Count (03/31/2025 8:47 AM CDT) PLATELET COUNT 182 140 - 440 thou/cu mm 03/31/2025 9:02 AM CDT [facility] MPV 10.3 6.5 - 11.0 fL 03/31/2025 9:02 AM CDT [facility] Blood BLOOD SPECIMEN / Unknown Butterfly / Unknown 03/31/2025 8:47 AM CDT 03/31/2025 8:53 AM CDT Lisa Bettencourt MD H EMATOLOGY Final Result [facility] [address] [place] [address], * (ABNORMAL) Protime-INR (03/31/2025 8:47 AM CDT) INR 1.1 <1.3 03/31/2025 9:05 AM CDT [facility] PROTIME 12.7(H) 10.6 - 12.4 sec 03/31/2025 9:05 AM CDT [facility] Blood BLOOD SPECIMEN / Unknown Butterfly / Unknown 03/31/2025 8:47 AM CDT 03/31/2025 8:53 AM CDT Narrative [facility] - 03/31/2025 9:05 AM CDT Therapeutic Range 2.0-3.0 for most anticoagulated patients 2.5-3.5 or 4.0 for high risk patients The INR is only used for patients on stable oral anticoagulant therapy. It makes no significant contribution to the diagnosis or treatment of patients whose Protime is prolonged for other reasons. INR results are increased when heparin levels exceed 1.0 U/mL, which corresponds to an aPTT >125 seconds if the patient is on UFH. Lisa Bettencourt MD H EMATOLOGY Final Result Performing Organization Address City/[facility]/ZIP Co de Phone Number [facility] [address] [address], [place] * (ABNORMAL) GLUCOSE METER (03/31/2025 8:30 AM CDT) GLUCOSE METER 118(H) 65 - 100 mg/dL 03/31/2025 8:36 AM CDT [facility] Blood BLOOD SPECIMEN / Unknown 03/31/2025 8:30 AM CDT 03/31/2025 8:36 AM CDT Sonny Mckeon MD CHEMISTRY Fi nal Result Performing Organization Address [facility] Co de Phone Number [facility] [address] [address], [place] * SCAN-CARDIAC STRIP (03/31/2025 12:00 AM CDT) Narrative 03/31/2025 12:00 AM CDT Ordered by an unspecified provider. Other Clinical Staff OTHER Final Resul t * (ABNORMAL) BASIC METABOLIC PANEL (03/29/2025 10:12 AM CDT) GLUCOSE 115(H) 65 - 99 mg/dL [facility] Comment: Fasting reference interval For someone without known diabetes, a glucose value between 100 and 125 mg/dL is consistent with prediabetes and should be confirmed with a follow-up test. UREA NITROGEN (BUN) 21 7 - 25 mg/dL [facility] CREATININE 1.38(H) 0.70 - 1.28 mg/dL [facility] EGFR 53(L) > OR = 60 mL/min/1.7 3m2 [facility] BUN/CREATININE RATIO 15 6 - 22 (calc) [facility] SODIUM 140 135 - 146 mmol/L [facility] POTASSIUM 4.4 3.5 - 5.3 mmol/L [facility] CHLORIDE 106 98 - 110 mmol/L [facility] CARBON DIOXIDE 25 20 - 32 mmol/L [facility] ELECTROLYTE BALANCE 9 7 - 17 mmol/L (calc) [facility] CALCIUM 9.9 8.6 - 10.3 mg/dL [facility] Blood BLOOD SPECIMEN / Unknown 03/29/2025 10:12 AM CDT 03/29/2025 10:12 AM CDT Richar Rivas MD CHEMISTRY Final Resu lt Performing Organization Address City/[facility]/ZIP Co de Phone Number [address] [employer] [facility] [address] [place] [place] [address], [place] [phone] [facility] [address] [place] [address] * SCAN-DIAGNOSTIC REPORT (03/27/2025 12:00 AM CDT) Scanner OTHER Final Result * POTASSIUM (02/02/2025 12:29 PM CDT) POTASSIUM 4.4 3.5 - 5.3 mmol/L [facility] Blood BLOOD SPECIMEN / Unknown 02/02/2025 12:29 PM CDT 02/02/2025 12:30 PM CDT Richar Rivas MD CHEMISTRY Final Resu lt [employer] [address] [employer] [facility] [address] [place] [place] [address], [place] [phone] [facility] [address] [place] [address] * SCAN-CT INTERPRETATION (01/07/2025 12:00 AM CDT) Anatomical Region Laterality Modality Other us Scanner OTHER Final Result * ANTI HCV (06/06/2022 10:10 AM CDT) HEPATITIS C ANTIBODY Non-[facility]act [place] Non-[facility]act [place] 06/07/2022 4:24 AM CDT [facility] Comment:Antibodies to HCV no t detected; does not exclude the possibility of exposure to HCV. Blood BLOOD SPECIMEN / Unknown Venipuncture / Unknown 06/06/2022 10:10 AM CDT 06/06/2022 10:13 AM CDT us Richar Rivas MD SEND OUTS Final Resu lt [facility] [address] [place] [address], [place] from Last 3 Months or Most Recently Relevant to Health Maintenance Insurance MEDICARE PART B HB ONLY MEDICARE PART A HB ONLY MEDICARE PB ONLY [facility] Advance Directives * Full Code (Latest Code Status on File) Date Activated Date Inactivated Comments 03/31/2025 8:00 AM 04/02/2025 4:48 PM Question Answer Comments Code Status Discussion: Not Discussed * Full Code Date Activated Date Inactivated Comments 11/10/2010 12:27 PM 11/12/2010 2:45 PM Care Teams Eeo Officer Relationship Specialty Start Date End Date Richar Rivas MD [address] [place] [address] PCP - General 05/29/06 Ambrosio Lizarraga MD [address] [place] [address] Cardiology Cardiovascular Disease 09/22/14
[2025-04-03 08:50] LABS: Hematocrit 36.8 % (37.0-53.0); Hemoglobin* 12.3 gm/dL (13.5-17.5); Immature Granulocytes Abs Auto 0.01 K/uL (0.00-0.30); Immature Granulocytes Pct Auto 0.1 %; Mean Corpuscular HGB Conc 33 gm/dL (32-36); Mean Corpuscular Hemoglobin 30 pg (26-34); Mean Corpuscular Volume 90 fL (80-100); RDW Coefficient of Variation % 13.4 % (11.5-15.5); Red Blood Count 4.07 m/uL (4.30-5.90); White Blood Count* 10.84 K/uL (4.50-11.00)
[2025-04-03 08:52] LABS: Lymphocytes Absolute Auto 1.20 K/uL (0.90-2.90); Slide Review Reflex No
--- NOTE | 2025-04-03 08:56 | CRLHL7_ITS ---
For Patients: As a result of the 21st Century Cures Act, medical imaging exams and procedure reports are released immediately into your electronic medical record. You may view this report before your referring provider. If you have questions, please contact your health care provider. INDICATION: Patient underwent a procedure to break up urinary tract stones about 4 days ago. There are some complications during the procedure the failure to fully retrieve the stones. A nephrostomy tube was placed. Patient has been soaking the dressing adjacent to the nephrostomy tube and there is a high suspicion for nephrostomy displacement/urine leak. COMPARISON: 01/07/2025 TECHNIQUE: CT of the abdomen and pelvis with intravenous contrast. Additional urographic phase imaging obtained through the abdomen after review of the initial CT. Multiplanar axial, coronal, and sagittal reformats were reconstructed. Contrast: 116 mL Isovue 370. FINDINGS: Lung bases: Normal. Liver: Normal. No mass. Gallbladder and bile ducts: Normal gallbladder. No bile duct dilation. Pancreas: There is a 1.5 x 1 centimeter low-density pancreatic lesion in the uncinate process. No pancreatic ductal dilatation or pancreatitis. Spleen: Normal. Adrenal glands: Normal. Right kidney: Normal right kidney and collecting system. Left kidney: Postprocedural left kidney. The left nephrostomy tube is in good position in the renal pelvis traversing the left posterior kidney and out the left flank. There is another defect in the kidneys slightly more medial and superior. See series 2, image 55 of the urogram images. On the urographic phase image contrast-enhanced urine spills through the defect and into the perinephric fat and out the subcutaneous soft tissues along a tract to the skin surface. The skin site is just medial to the nephrostomy exit site. There is significant irregularity of the ureteropelvic junction with inflammatory stranding and fluid. No urinary extravasation seen from the UPJ or proximal ureter on the urographic phase imaging. No urine seen below the proximal ureter. There is a moderate amount of perinephric stranding but no discrete collection. There is a left upper pole renal cyst. Urinary bladder: Small amount of gas in the bladder. Pelvis: No cyst or mass. Vessels: Normal. Bowel: No dilated or inflamed bowel. Normal appendix. Wcmtikln-[id number] stool burden. Lymph nodes: No adenopathy. Peritoneum: No ascites. Abdominal wall: No hernia. Bones: No fractures. No focal worrisome bone lesions. IMPRESSION: 1. Urine leak. There is a left renal parenchymal defect with contrast-enhanced urine opacification extending through an ill-defined tract to the skin surface. This may be related to the initial access site for the procedure or prior nephrostomy site. 2. The current nephrostomy tube appears to be well-positioned. 3. Suspected significant proximal left ureteral injury with significant inflammatory stranding and fluid and no urine seen beyond the proximal ureter. 4. There is a 1.5 x 1 centimeter low-density pancreatic lesion. Probably a side branch IPMN but this needs to be evaluated with MRCP abdomen without and with IV contrast. This is not an emergent recommendation can be deferred until after resolution of the current renal problems. Discussed with Dr. Mccarthy at 10:30 a.m. on 04/03/2025. Pancreas Please note that all CT scans at this facility use dose modulation, iterative reconstruction, and/or weight-based dosing when appropriate to reduce radiation dose to as low as reasonably achievable. Dictated by Kym Hyatt MD @ 04/03/2025 10:33:24 AM (Electronically Signed)
[2025-04-03 09:03] LABS: Chloride* 107 mmol/L (96-114); Potassium* 4.2 mmol/L (3.6-5.1); Sodium* 138 mmol/L (135-149)
[2025-04-03 09:06] LABS: Anion Gap 7 mEq/L (7-15); Blood Urea Nitrogen* 18 mg/dL (7-30); Calcium* 9.2 mg/dL (8.4-10.6); Carbon Dioxide* 24 mmol/L (20-32); Creatinine* 1.2 mg/dL (0.5-1.5); Est. Creatinine Clearance* 59.19; Estimated Glomerular Filt Rate 63 ml/min; Glucose* 171 mg/dL (60-115)
--- NOTE | 2025-04-03 09:12 | ED.GENADULT ---
HPI - General Adult General Date Seen: 04/03/25 Chief complaint: Skin/Abscess/Foreign Body Stated complaint: back/incision draining Time Seen by Provider: 04/03/25 08:04 Source: patient Mode of arrival: ambulatory Limitations: no limitations History of Present Illness HPI narrative: Patient is a 74-year-old male presenting to the emergency department for large amount drainage from his nephrostomy tube site. He had a nephrostomy tube placed 3 days ago by [facility] due to a kidney stone. His states that she has been changing it the past couple days and she feels likely mild drainage is increasing. She replaced it at 06:00 today and now the entire large gauze is saturated. After only a couple hours. The color of the drainage is the same as the urine in the Nina catheter. He is not having any pain. Has not had any fevers or chills. She states she tried calling [facility] and they told her to go to the emergency department. She then called the floor for the hospital he stated that and asked if she should go to her local ED and they said yes. No other complaints noted at this time. Related Data Home Medications ?Medication ?Instructions ?Recorded ?Confirmed amlodipine 5 mg tablet 5 mg PO DAILY 01/07/25 04/03/25 aspirin 81 mg tablet,delayed 81 mg PO DAILY 01/07/25 01/07/25 release (Adult Aspirin Regimen) atorvastatin 40 mg tablet 40 mg PO DAILY 01/07/25 04/03/25 budesonide-formoterol HFA 160 2 inh inhalation Q12H PRN 01/07/25 04/03/25 mcg-4.5 mcg/actuation aerosol inhaler doxycycline hyclate 50 mg capsule 50 mg PO DAILY 01/07/25 04/03/25 metoprolol succinate 50 mg 50 mg PO DAILY 01/07/25 04/03/25 tablet,extended release 24 hr fexofenadine 180 mg tablet 180 mg PO DAILY 04/03/25 04/03/25 (Juliette Hives) oxycodone 5 mg tablet PO 04/03/25 Allergies Allergy/AdvReac Type Severity Reaction Status Date / Time amoxicillin Allergy Intermediate Rash Verified 04/03/25 09:36 lisinopril AdvReac Cough Verified 04/03/25 09:36 Review of Systems Status of ROS: Reports: 10 or more systems reviewed and unremarkable except as noted in History and below [facility] Social History Smoking Status: Never smoker Do you use any of these nicotine containing products: None How often do you have a drink containing alcohol: never AUDIT-C Alcohol total score: 0 Non-prescribed substance use: denies use service: No Exam Narrative: Exam Narrative: Const: Well-nourished, Well-developed, in no distress Eyes: PERRL, no conjunctival injection, and symmetrical lids HENT: Atraumatic external nose and ears. Moist mucous membranes. Neck: Symmetric, trachea midline, No thyromegaly. CVS: RRR, No murmurs or gallops. Peripheral pulses 2+ and equal in all extremities RESP: Unlabored respiratory effort. Clear to auscultation bilaterally. GI: Nontender/Nondistended, No rebound or guarding. MSK:Extremities w/o deformity, Normal Active ROM Skin: Warm, Dry. Nephrostomy tube incision site does not look infected. The overlying gauze and bandages are heavily saturated with pink colored fluid Neuro: Normal Muscle tone, No focal neurological deficits. Psych: Awake, Alert, & Oriented x3. Appropriate mood and affect. Const: Vital Signs, click to edit/add: Vital Signs - 24 hr 04/03/25 07:35 04/03/25 11:03 04/03/25 15:42 Temperature 97.2 F L 97.7 F Pulse Rate [Pulse Oximeter] 80 70 57 L Respiratory Rate 16 17 16 Blood Pressure [[facility]] 105/67 135/92 H Pulse Oximetry 96 99 99 Oxygen Delivery Me thod Room Air Room Air Room Air Course Vital Signs Vital signs: Initial Vital Signs Temperature 97.2 F L 04/03/25 07:35 Temperature Source Temporal Artery Scan 04/03/25 07:35 Pulse Rate 80 04/03/25 07:35 Respiratory Rate 16 04/03/25 07:35 Blood Pressure 105/67 04/03/25 07:35 Blood Pressure Mean 79 04/03/25 07:35 Blood Pressure Position Sitting 04/03/25 07:35 Pulse Oximetry 96 04/03/25 07:35 Oxygen Delivery Method Room Air 04/03/25 07:35 Vital Signs Temperature 97.2 F L 04/03/25 07:35 Pulse Rate 80 04/03/25 07:35 Respiratory Rate 16 04/03/25 07:35 Blood Pressure 105/67 04/03/25 07:35 Pulse Oximetry 96 04/03/25 07:35 Oxygen Delivery Method Room Air 04/03/25 07:35 Temperature 97.7 F 04/03/25 11:03 Pulse Rate 57 L 04/03/25 15:42 Respiratory Rate 16 04/03/25 15:42 Blood Pressure 135/92 H 04/03/25 15:42 Pulse Oximetry 99 04/03/25 15:42 Oxygen Delivery Method Room Air 04/03/25 15:42 Medical Decision Making MDM Narrative Medical decision making narrative: Patient is a 74-year-old male presenting for issues with his nephrostomy to. I do not see any signs of infection but the overlying gauze and bandages are heavily saturated. They are saturated with the same colored fluid as what is and his fully. I am concerned there is a nephrostomy tube displacement and he is leaking urine. Will do CBC, BMP, CT scan with IV contrast for better evaluation. Lab work shows no acute concerning abnormalities. Creatinine within normal limits for him. CT scan shows a normal location of his nephrostomy tube with no issues. I spoke to the radiologist and she does recommend doing a repeat CT scan now that contrast has been in a little bit longer to check for signs of urine leak. This repeat CT does show a large amount of urine leak. CT scan also shows a lesion within the pancreas which requires an outpatient MRCP. I spoke to Dr. Simmons of [facility] stated that as long as the nephrostomy tube is working correctly the urine leakage is expected and not concerning. She does state that the family is very concerned they can accept patient for transfer for IR nephrostomy tube placement on Saturday or Saturday as he does need a [address]. She also states the patient can follow-up with his urologist on Saturday get the tube placement later in the week. I went back to speak to the patient and his about this. At that time he noticed there has been no further drainage from nephrostomy tube. Initially thought was working correctly because when he woke up this morning it drained about 200 mL which is normal for him. He states he empties it every 4-6 hours. Is has had no further drainage and nursing staff tried to flush it. Continues to have no drainage after more observation. Has the now been almost 6 hours with no further drainage. I spoke to Urology again who recommends transfer and to make the patient NPO. Patient is overall stable and safe to go by private vehicle as they would prefer to go [facility] Lab Data Labs: Lab Results 04/03/25 Range/Units 08:45 WBC 10.84 (4.50-11.00) K/uL RBC 4.07 L (4.30-5.90) m/uL Hgb 12.3 L (13.5-17.5) gm/dL Hct 36.8 L (37.0-53.0) % MCV 90 (80-100) fL MCH 30 (26-34) pg MCHC 33 (32-36) gm/dL RDW Coeff of Low 13.4 (11.5-15.5) % Plt Count 161 (140-440) K/uL Neut % (Auto) 78.6 H (42.0-72.0) % Lymph % (Auto) 11.3 L (20-44) % [place] % (Auto) 8.2 (0.0-11.0) % Eos % (Auto) 1.5 (0.0-7.0) % Baso % (Auto) 0.3 (0.0-3.0) % Neut # (Auto) 8.50 H (1.7-7.0) K/uL Lymph # (Auto) 1.20 (0.90-2.90) K/uL [place] # (Auto) 0.90 (0.00-0.90) K/UL Eos # (Auto) 0.16 (0.00-0.50) K/uL Baso # (Auto) 0.03 (0.00-0.30) K/uL Abs Immat Gran (auto) 0.01 (0.00-0.30) K/uL Imm/Tot Granulo (auto) 0.1 % Sodium 138 (135-149) mmol/L Potassium 4.2 (3.6-5.1) mmol/L Chloride 107 (96-114) mmol/L Carbon Dioxide 24 (20-32) mmol/L Anion Gap 7 (7-15) mEq/L BUN 18 (7-30) mg/dL Creatinine 1.2 (0.5-1.5) mg/dL Estimated Creat Clear 59.19 Estimated GFR 63 ml/min Glucose 171 H (60-115) mg/dL Calcium 9.2 (8.4-10.6) mg/dL Imaging Data CT scan abdomen pelvis: Attestation: I have reviewed the pertinent imaging results. Radiologist's impression: 1. Urine leak. There is a left renal parenchymal defect with contrast-enhanced urine opacification extending through an ill-defined tract to the skin surface. This may be related to the initial access site for the procedure or prior nephrostomy site. 2. The current nephrostomy tube appears to be well-positioned. 3. Suspected significant proximal left ureteral injury with significant inflammatory stranding and fluid and no urine seen beyond the proximal ureter. 4. There is a 1.5 x 1 centimeter low-density pancreatic lesion. Probably a side branch IPMN but this needs to be evaluated with MRCP abdomen without and with IV contrast. This is not an emergent recommendation can be deferred until after resolution of the current renal problems. Discussed with Dr. Mccarthy at 10:30 a.m. on 04/03/2025. See same day CT abdomen pelvis. Discharge Plan Discharge Clinical Impression: Nephrostomy tube failure with subsequent urine leak Patient Disposition: [facility] Condition: Stable Prescriptions: No Action metoprolol succinate 50 mg tablet extended release 24 hr 50 mg PO DAILY amlodipine 5 mg tablet 5 mg PO DAILY atorvastatin 40 mg tablet 40 mg PO DAILY budesonide-formoterol 160-4.5 mcg/actuation HFA aerosol inhaler 2 inh inhalation Q12H PRN doxycycline hyclate 50 mg capsule 50 mg PO DAILY aspirin [Adult Aspirin Regimen] 81 mg tablet,delayed release (DR/EC) 81 mg PO DAILY Patient Comments: holding until Apr 05, 2925 oxycodone 5 mg tablet PO fexofenadine [Juliette Hives] 180 mg tablet 180 mg PO DAILY Stand Alone Forms: [employer] Info Instructions
--- NOTE | 2025-04-03 10:08 | CRLHL7_ITS ---
For Patients: As a result of the Century Cures Act, medical imaging exams and procedure reports are released immediately into your electronic medical record. You may view this report before your referring provider. If you have questions, please contact your health care provider. 1. Urine leak. There is a left renal parenchymal defect with contrast-enhanced urine opacification extending through an ill-defined tract to the skin surface. This may be related to the initial access site for the procedure or prior nephrostomy site. 2. The current nephrostomy tube appears to be well-positioned. 3. Suspected significant proximal left ureteral injury with significant inflammatory stranding and fluid and no urine seen beyond the proximal ureter. 4. There is a 1.5 x 1 centimeter low-density pancreatic lesion. Probably a side branch IPMN but this needs to be evaluated with MRCP abdomen without and with IV contrast. This is not an emergent recommendation can be deferred until after resolution of the current renal problems. Discussed with Dr. Mccarthy at 10:30 a.m. on 04/03/2025. See same day CT abdomen pelvis. Please note that all CT scans at this facility use dose modulation, iterative reconstruction, and/or weight-based dosing when appropriate to reduce radiation dose to as low as reasonably achievable. Dictated by Kym Hyatt MD @ 04/03/2025 10:34:44 AM (Electronically Signed)
[2025-04-03 11:03] VITALS: PULSE 70; RESP 17; TEMP 36.5; O2SAT 99
[2025-04-03 15:42] VITALS: BP 135/92; PULSE 57; RESP 16; O2SAT 99
== END 2025-04-03 16:03 | disposition short-term general hospital (02) ==
PROVIDERS: Emergency Provider Student in an Organized Health Care Education/Training Program; PCP Family Medicine
DX: N99.522 Malfunction of incontinent external stoma of urinary tract (principal)
CPT/HCPCS: 36415; 74150; 74177; 80048; 85025; 99285; Q9967

== ENCOUNTER 2025-04-05 19:31 | Emergency (ER) | payer MEDICARE, BC, SELFPAY ==
--- OUTSIDE RECORDS SUMMARY | 2025-04-05 19:34 | XMS_ITS | Clinical Summary ---
Author Organization [facility] Address [address] [place] [id number] Care Team Providers Care Tailings Worker Name Role Phone Richar Rivas MD Primary Care Provider [phone] Allergies Active Allergy Reactions Criticality Noted Date [...] Sex Assigned at Male 10/16/2021 11:49 AM DRAW OFF WORKER Legal Sex Male 3:11 AM DRAW OFF WORKER Gender Identity Male 10/16/2021 11:49 AM DRAW OFF WORKER Sexual Orientation Straight 10/16/2021 11 :49 AM DRAW OFF WORKER Last Filed Vital Signs Vital Sign Reading Time Taken Comments Blood Pressure 142/89 10/26/2021 2:20 PM DRAW OFF WORKER Pulse 72 10/26/2021 2:20 PM DRAW OFF WORKER Temperature 36.2 C (97.2 F) 10/26/2021 2:20 PM DRAW OFF WORKER Respiratory Rate 16 10/26/2021 2:20 PM DRAW OFF WORKER Oxygen Saturation 98% 10/26/2021 2:20 PM DRAW OFF WORKER Inhaled Oxygen Concentration - - Weight 116.2 kg (256 lb 1.6 oz) 10/26/2021 9:03 AM DRAW OFF WORKER Height 190.5 cm (6' 3) 10/26/2021 9:03 AM DRAW OFF WORKER Body Mass Index 32.01 10/26/2021 9:03 AM DRAW OFF WORKER Plan of Treatment Health Maintenance Due Date [...] (External) 125 100 - 199 mg/dL [facility] Triglycerides (External) 163(H) <150 mg/dL [facility] HDL Cholesterol (External) 28(L) >40 mg/dL [facility] LDL Cholesterol (External) 64 <=130 mg/dL [facility] Non HDL Cholesterol (External) 97 <145 mg/dL [facility] Blood 06/22/2020 10:4 2 AM CDT Narrative [facility] - 06/22/2020 10:42 AM CDT Care Everywhere, [facility] us Provider Outside LAB - HIM EXTERNAL RESULT Final Result [facility] [address] [place] [address], [facility] * Glucose (External Result) (06/22/2020 10:42 AM CDT) Glucose (External) 100 65 - 100 mg/dL [facility] Blood 06/22/2020 10:4 2 AM CDT Narrative [facility] - 06/22/2020 10:42 AM CDT Care Everywhere, [facility] us Provider Outside LAB - HIM EXTERNAL RESULT Final Result [facility] [address] [place] [address], [facility] * Colonoscopy - HIM Scan (03/06/2018) Narrative Renita Nell Mitzy - 03/06/2018 Care Everywhere, [facility] us Provider Outside PROCEDURES Final Result from Last 3 Months or Most Recently Relevant to Health Maintenance Insurance MEDICARE [facility] MEDICARE SUPPLEMENT Care Teams Tailings Worker Relationship Specialty Start Date End Date Richar Rivas MD PCP - General Family Medicine 10/03/21
--- OUTSIDE RECORDS SUMMARY | 2025-04-05 19:34 | XMS_ITS | Clinical Summary ---
Author Organization [facility] Address [address] [place] [address] Care Team Providers Care Stock Controller Name Role Phone Richar Rivas MD Primary Care Provider [phone] Ambrosio Lizarraga MD Unavailable [phone] Allergies Active Allergy Reactions Criticality Noted Date Comments Amoxicillin Rash High 10/06/2007 facial 1998 Lisinopril Cough 09/08/2020 Medications aspirin enteric coated 81 mg tablet Take 1 tablet by mouth once daily with a meal. 0 2 Active fexofenadine (GRAHAM) 180 mg tablet Take 180 mg by mouth once daily. Do not crush or chew. 0 2 Active Uilrh-4-VPE-EPA -Fish Oil (Fish OiL) 1,000 mg (120 [...] sustained-relea se tabletIndicatio ns:Coronary artery disease involving confederated salish coronary artery of conf[place] salish heart without angina pectoris Take 1 Tablet [...] < 70 12/27/2010 CAD (coronary artery disease), conf[place] sal[place] coronary a rtery 12/27/2010 Acute myocardial infarction 11/10/2010 Hypertension 11/10/2010 Unspecified sinusitis (chronic) 10/19/2010 Rosacea 10/06/2007 Allergic rhinitis, cause unspecified Resolved Problems Problem Noted Date Diagnosed Date Resolved Date Other and unspecified hyperlipidemia 10/06/2007 12/27/2010 Encounters Date Type Department Care Team Description 04/05/2025 Telephone [facility] [address] [place] [address] Sharon Turner, RN Drain Care 04/05/2025 Travel 04/05/2025 Patient Outreach [facility] [place] [address] [place] [address] Ryann Rivera, RN Primary RN Care Management; Hospital F/U (Lace=53) 04/03/2025 5:38 PM CDT - 04/04/2025 1:48 PM CDT Hospital Encounter [facility] [address] [place] [address] [facility] [place] Hospitalists Of Kt Michaud MD Storlie, Erik John, MD Discharge Disposition: Home Self Care 04/02/2025 Travel 04/01/2025 Orders Only [facility] Medical Imaging [address] [place] [address] Benitez, Rebeka <No scans attached> 04/01/2025 Orders Only [facility] [address] [place] [address] Tubah, Isi <No scans attached> 04/01/2025 Orders Only [facility] [address] [place] [address] Tubah, Isi <No scans attached> 04/01/2025 Orders Only [facility] [address] [address] Ramon Marquisoinette <No scans attached> 03/31/2025 12:43 PM CDT Anesthesia Event [facility] [address] [place] [address] Lynn Newton, LLOYD 03/31/2025 11:15 AM CDT - 03/31/2025 1:43 PM CDT Surgery [facility] [address] [address] Sonny Mckeon MD LEFT PERCUTANEOUS NEPHROLITHOTOMY, LEFT ANTEGRADE NEPHROSTOGRAM, CYSTOSCOPY WITH LEFT RETROGRADE 03/31/2025 7:46 AM CDT - 04/02/2025 1:30 PM CDT Hospital Encounter [facility] [address] [place] [address] Sonny Mckeon MD Calculus of kidney Discharge Disposition: Home Self Care 03/30/2025 Travel 03/29/2025 10:15 AM CDT Orders Only [facility] [place] [address] [place] [address] Lab, [place] 03/29/2025 8:30 AM CDT Office Visit [facility] [place] [address] [place] [address] Vicente Hayes MD Sleep Follow-up 03/29/2025 Travel 03/27/2025 Orders Only [facility] SERVICES Scanner 1 scan: (1-Ord) [facility], COMPLIANCE REPORT, 03/27/2025 03/24/2025 Travel 03/10/2025 4:05 PM CDT Office Visit [facility] [place] [address] [place] [address] Richar Rivas MD Preoperative Exam (Kidney stone /Surgery 03/31/2025) 03/10/2025 Travel 02/22/2025 Travel 02/14/2025 Telephone [facility] [place] [address] [place] [address] Richar Rivas MD Abnormal Lab Results 02/02/2025 10:50 AM CDT Office Visit [facility] [place] [address] [place] [address] Richar Rivas MD Preoperative Exam (Kidney stone/02/23/25 ANW/Dr. Mckeon) 02/02/2025 Travel 01/28/2025 Travel 01/18/2025 Orders Only [facility] Imaging [address] [place] [address] Rebeka Marquis 1 scan: Neph Tube & PCNL 01/07/2025 Orders Only [facility] Scanner 1 scan: (1-Ord) [facility], ABDOMEN PELVIS W CON , 01/07/2025 from [...] Mother short term denise ry loss; [facility] Pneumonia Mother of Pneumon ia and Dementia [...] or isolated from those around you? 0 04/03/2025 Financial Resource Strain Answer Date R ecorded Difficulty of Paying Living Expenses 3 06/10/2024 Difficulty of Paying Living Expenses Not on file 06/10/2024 Food Insecurity Answer Date Recorded Do you worry your food will run out before you are able to buy more? 1 04/03/2025 Transportation Needs Answer Date Record ed Does lack of transportation keep you from medica l appointments? 1 04/03/2025 Does lack of transportation keep you from work, meetings or getting things that you need? 1 04/03/2025 Housing Stability Answer Date Recorded What is your housing situation today? 1 04/03/2025 Interpersonal Safety Answer Date Record ed Are you being hit, kicked, p ushed or yelled at (see row info)? No 04/03/2025 Interpersonal Safety Abuse 12 - 18 Not on file 04/03/2025 Interpersonal Safety Ambulatory Vulnerability No t on file 04/03/2025 Utilities Answer Date Recorded Do you have trouble paying f or utilities (for example, heat, electricity, water, phone)? 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 Not on file Not on file Obstetrics History Last Filed Vital Signs Vital Sign Reading Time Taken Comments Blood Pressure 118/72 04/04/2025 7:53 AM CDT Pulse 71 04/04/2025 7:53 AM CDT Temperature 36.7 C (98.1 F) 04/04/2025 7:53 AM CDT Respiratory Rate 18 04/04/2025 7:53 AM CDT Oxygen Saturation 94% 04/04/2025 7:53 AM CDT Inhaled Oxygen Concentration - - Weight 107 kg (236 lb) 04/02/2025 5:29 AM CDT Height 188 cm (6' 2) 03/31/2025 8:35 AM CDT Body Mass Index 30.3 03/31/2025 8:35 AM CDT Plan of Treatment Upcoming Encounters Date Type Department Care Team (Late st Contact Info) Description 04/07/2025 7:35 AM CDT Office Visit [facility] [place] [address] [place] [address] Richar Rivas MD [address] [place] [address] 04/09/2025 1:00 PM CDT Office Visit [facility] [place] [address] [place] [address] Darren Langford MD [address] [place] [address] 06/09/2025 7:00 AM CDT Orders Only [facility] [place] [address] [place] [address] Wen [place] 07/06/2025 1:55 PM PRODUCTION INTERN Office Visit [facility] [place] [address] [place] [address] Richar Rivas MD [address] [place] [address] Health Maintenance Due Date Last Done Comments COVID-19 vaccine series (7 - Pfizer risk season) 2024 06/02/2024, 08/11/2022, 12/27/2021, Additional history [...] this topic Medical Devices Implanted Type Area Health Type Technician Device Identifier Shelf Expiration Date Model / Serial / Lot Cath Drainage 8.5fr Implanted:Qty: 1 on 03/31/2025 by Sonny Mckeon MD at [facility] Left: Kidney 12/10/2025 [id number]-[id number] M-RH / / [id number] Description:CATH DRAINAGE 8. 5FR Procedures Procedure Name Priority Date/Time Associated Diagnosis Comments GLUCOSE METER Timed 04/04/2025 12:29 PM CDT CREATININE Early AM 04/04/2025 7:08 AM CDT GLUCOSE METER Timed 04/04/2025 6:30 AM CDT GLUCOSE METER Timed 04/03/2025 9:51 PM CDT GLUCOSE METER Timed 04/03/2025 7:10 PM CDT CREATININE Today 04/02/2025 9:55 AM CDT IR NEPHROSTOMY TUBE LEFT Routine 025 9:42 PM CDT CREATININE Early AM 04/01/2025 7:42 AM CDT HEMOGLOBIN Early AM 04/01/2025 7:[address] ABDOMEN PELVIS STONE PROTOCOL WO Routine 03/31/2025 7:43 PM CDT XR RETROGRADE PYELOGRAM W/WO KUB Routine [...] 3a or 3b CKD (HC) SCAN-DIAGNOSTIC REPORT 12:00 AM CDT POTASSIUM Routine 02/02/2025 12:29 PM CDT Preoperative general physical examination CREATININE Routine 02/02/2025 12:29 PM CDT Preoperative general physical examination SCAN-CT INTERPRETATION 12:00 AM CDT ANTI HCV Routine 06/06/2022 10:10 AM CDT Need for hepatitis C screening test from Last 3 Months or Most Recently Relevant to Health Maintenance Results * (ABNORMAL) GLUCOSE METER (04/04/2025 12:29 PM CDT) Only the most recent of5 resultswithin the time period is included. Pathologist [facility] GLUCOSE METER 110(H) 65 - 100 mg/dL 04/04/2025 12:30 PM CDT [facility] [email or web address] [facility] Blood BLOOD SPECIMEN / Unknown 04/04/2025 12:29 PM CDT 04/04/2025 12:30 PM CDT us Raymond Ford MD CHEMISTRY Final Resul t [facility] [address] [place] [address], * (ABNORMAL) CREATININE (04/04/2025 7:08 AM CDT) Only the most recent of5 resultswithin the time period is included. eGFR 59(L) >90 mL/min/1.7 3m2 04/04/2025 7:34 AM CDT [facility] Comment:As of 2021, eG FR is calculated by the CKD-EPI creatinine equation without race adjustment. eGFR can be influenced by muscle mass, exercise, and diet. The reported eGFR is an estimation only and is only applicable if the renal function is stable. CREATININE 1.26(H) 0.70 - 1.20 mg/dL 04/04/2025 7:34 AM CDT [facility] Blood BLOOD SPECIMEN / Unknown Venipuncture / Unknown 04/04/2025 7:08 AM CDT 04/04/2025 7:12 AM CDT us Kt Michaud MD CHEMISTRY Final Res ult [facility] [address] [place] [address], * IR NEPHROSTOMY TUBE LEFT (04/01/2025 9:42 [...] renal pelvis. The tract was dilated. 8 [place] Island[place] Mitchell-Cabezas nephrostomy catheter was inserted over the [...] the lower pole and renal pelvis. 8 [place] nephrostomy tube was placed uneventfully into the lower pole. Completion antegrade nephrostogram demonstrates satisfactory position of the pigtail at the renal pelvis stone. Extravasation at the ureteropelvic junction is noted similar to 1 day prior. Impression: Successful placement of a left 8 [place] nephrostomy tube using ultrasound and fluoroscopic guidance. us Jo US IR Final Re sult * Hemoglobin (04/01/2025 7:42 AM CDT) Only the most recent of2 resultswithin the time period is included. HEMOGLOBIN 13.7 13.5 - 17.5 g/dL 04/01/2025 8:45 AM CDT [facility] MCV 90 80 - 100 fL 04/01/2025 8:45 AM CDT [facility] Blood BLOOD SPECIMEN / Unknown Butterfly / Unknown 04/01/2025 7:42 AM CDT 04/01/2025 8:10 AM CDT us Brandy US HEMATOLOGY Final R esult [facility] [address] [place] [address], [place] * CT ABDOMEN PELVIS STONE PROTOCOL WO (03/31/2025 7:43 PM CDT) Anatomical Region Laterality Modality Abdomen, Pelvis, AORTA, LIVER, SPLEEN Computed Tomography 04/03/2025 12:2 7 PM CDT Impressions 04/03/2025 12:27 PM CDT 1. Status post stone extraction and nephrostomy placement. 2. Extravasated rib small volume retroperitoneal contrast after the procedure. 3. Nina catheter in satisfactory position. 4. Incidental observations in the lung bases with a micronodule and a small low-density liver lesion. Follow-up imaging can be obtained in the presence of any elevated risk factor. Please note that all CT scans at this facility use dose modulation, iterative reconstruction, and/or weight-based dosing when appropriate to reduce radiation dose to as low as reasonably achievable. Dictated by Jayden Martinez MD @ 04/03/2025 12:27:22 PM (Electronically Signed) Narrative 04/03/2025 12:27 PM CDT For Patients: As a result of the Century Cures Act, medical imaging exams and procedure reports are released immediately into your electronic medical record. You may view this report before your referring provider. If you have questions, please contact your health care provider. INDICATION: Stone extraction. TECHNIQUE: CT scan abdomen and pelvis. FINDINGS: CT scan with the imaging obtained following stone extraction. Kidneys and bladder: Small posterior left-sided nephrostomy catheter position near the renal pelvis. Retained contrast material is present in the renal collecting system. This makes evaluation of the calcifications of difficult. There is extravasated retroperitoneal contrast and some air which is probably secondary to the procedure. Right kidneys unremarkable. A Nina catheter is present in the bladder. The bladder is thick walled. Miscellaneous abdomen: Liver: Tiny low dense lesion near the gallbladder image 50. Too small to characterize. Tiny calcified stones in the neck of the gallbladder. Pancreas, spleen, adrenal glands: No suspicious abnormality/accessory splenule. Gastrointestinal tract/lymph nodes: Normal caliber no adenopathy. Lung bases: Multi-vessel coronary artery calcification. Linear scarring in both lower lobes. Tiny micro nodule right middle lobe image 2. Skeletal: L5-S1 spondylolysis and spondylolisthesis. Disc degeneration. No suspicious abnormalities. Procedure Note Jayden Martinez MD - 04/03/2025 For Patients: As a result of the Cures Act, medical imagingexams and procedure reports are released immediately into your electronicmedical record. You may view this report before your referring provider.If you have questions, please contact your health care provider. INDICATION: Stone extraction. TECHNIQUE: CT scan abdomen and pelvis. FINDINGS: CT scan with the imaging obtained following stone extraction. Kidneys and bladder: Small posterior left-sided nephrostomy catheter position near the renalpelvis. Retained contrast material is present in the renal collectingsystem. This makes evaluation of the calcifications of difficult. There isextravasated retroperitoneal contrast and some air which is probablysecondary to the procedure. Right kidneys unremarkable. A Nina catheter is present in the bladder. The bladder is thick walled. Miscellaneous abdomen: Liver: Tiny low dense lesion near the gallbladder image 50. Too small tocharacterize. Tiny calcified stones in the neck of the gallbladder. Pancreas, spleen, adrenal glands: No suspicious abnormality/accessorysplenule. Gastrointestinal tract/lymph nodes: Normal caliber no adenopathy. Lung bases: Multi-vessel coronary artery calcification. Linear scarring in both lowerlobes. Tiny micro nodule right middle lobe image 2. Skeletal: L5-S1 spondylolysis and spondylolisthesis. Disc degeneration. Nosuspicious abnormalities. IMPRESSION: 1. Status post stone extraction and nephrostomy placement. 2. Extravasated rib small volume retroperitoneal contrast after theprocedure. 3. Nina catheter in satisfactory position. 4. Incidental observations in the lung bases with a micronodule and asmall low-density liver lesion. Follow-up imaging can be obtained in thepresence of any elevated risk factor. Please note that all CT scans at this facility use dose modulation,iterative reconstruction, and/or weight-based dosing when appropriate toreduce radiation dose to as low as reasonably achievable. Dictated by Jayden Martinez MD @ 04/03/2025 12:27:22 PM (Electronically Signed) Brandy US CT Final R esult * XR RETROGRADE PYELOGRAM W/WO KUB (03/31/2025 3:46 PM CDT) Anatomical Region Laterality Modality KIDNEYS, Abdomen Digital Radiogr aphy Narrative 03/31/2025 3:46 PM CDT 1 minute 7 seconds fluoroscopy time was provided. See operative/procedure report for further information. Sonny Mckeon MD GENERAL IMAGING Fi nal [...] Measured From: lips Difficulty: 0 (not difficult) us Cody Henderson MD ANESTHESIA PX NOTE O RDERABLES Final Result * Platelet Count (03/31/2025 8:47 AM CDT) PLATELET COUNT 182 140 - 440 thou/cu mm 03/31/2025 9:02 AM CDT [facility] MPV 10.3 6.5 - 11.0 fL 03/31/2025 9:02 AM CDT [facility] Blood BLOOD SPECIMEN / Unknown Butterfly / Unknown 03/31/2025 8:47 AM CDT 03/31/2025 8:53 AM CDT Lisa Bettencourt MD H EMATOLOGY Final Result [facility] [address] [place] [address], * (ABNORMAL) Protime-INR (03/31/2025 8:47 AM CDT) INR 1.1 <1.3 03/31/2025 9:05 AM CDT [facility] PROTIME 12.7(H) 10.6 - 12.4 sec 03/31/2025 9:05 AM CDT [facility] Blood BLOOD SPECIMEN / Unknown Butterfly / Unknown 03/31/2025 8:47 AM CDT 03/31/2025 8:53 AM CDT Narrative [facility] - 03/31/2025 9:05 AM CDT Therapeutic Range [...] Lisa Bettencourt MD H EMATOLOGY Final Result [facility] [address] [place] [address], [place] * SCAN-CARDIAC STRIP (03/31/2025 12:00 AM CDT) Narrative 03/31/2025 12:00 AM CDT Ordered by an unspecified provider. Other Clinical Staff OTHER Final Resul t * (ABNORMAL) BASIC METABOLIC PANEL (03/29/2025 10:12 AM CDT) GLUCOSE 115(H) 65 - 99 mg/dL [facility] Comment: Fasting reference interval For [...] MD CHEMISTRY Final Resu lt [facility] [address] [place] [address], [place] [phone] [facility] [address] [place] [address] * SCAN-DIAGNOSTIC REPORT (03/27/2025 12:00 AM CDT) us Scanner OTHER Final Result * POTASSIUM (02/02/2025 12:29 PM CDT) Pathologist [facility] POTASSIUM 4.4 3.5 - 5.3 mmol/L [facility] Blood BLOOD SPECIMEN / Unknown 02/02/2025 12:29 PM CDT 02/02/2025 12:30 PM CDT Richar Rivas MD CHEMISTRY Final Resu lt Performing Organization Address City/[facility] [address]/ZIP Co de Phone Number [facility] [address] [place] [address], [place] [phone] [facility] [address] [facility] [place] [address] * SCAN-CT INTERPRETATION (01/07/2025 12:00 AM CDT) [...] Rivas MD SEND OUTS Final Resu lt [facility] [address] [place] [address], [place] from Last 3 Months or Most Recently Relevant to Health Maintenance Insurance MEDICARE PART B HB ONLY MEDICARE PART A HB ONLY MEDICARE PB ONLY [facility] Advance Directives * Full Code (Latest Code Status on File) Date Activated Date Inactivated Comments 04/03/2025 6:56 PM 04/04/2025 3:53 PM Question Answer Comments Code Status Discussion: Reviewed Preferences * Full Code Date Activated Date Inactivated Comments 03/31/2025 8:00 AM 04/02/2025 4:48 PM Question Answer Comments Code Status Discussion: Not Discussed * Full Code Date Activated Date Inactivated Comments 11/10/2010 12:27 PM 11/12/2010 2:45 PM Care Teams Stock Controller Relationship Specialty Start Date End Date Richar Rivas MD [address] [place] [address] PCP - General 05/29/06 Ambrosio Lizarraga MD [address] [place] [address] Cardiology Cardiovascular Disease 09/22/14
--- OUTSIDE RECORDS SUMMARY | 2025-04-05 19:34 | XMS_ITS | Clinical Summary ---
Author Organization [facility] Address [address] [place] [address] Care Team Providers Care Wildland Fire Operations Specialist Name Role Phone Unavailable Primary Care Provider Unavailabl e Source Comments Patient records contain information from all sites at [facility]. For routine questions regarding patient records, call [phone] during business hours, M-F 8:00 AM - 5:00 PM Central Time. 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
[2025-04-05 19:38] VITALS: BP 130/75; PULSE 73; RESP 18; TEMP 36.6; O2SAT 97
[2025-04-05 19:44] VITALS: BMI 30.2
--- NOTE | 2025-04-05 21:45 | ED_ITS ---
HPI - General Adult General Chief complaint: Urogenital Problems, Male Stated complaint: drainage tube leaking Time Seen by Provider: 04/05/25 21:23 Source: patient and family Mode of arrival: ambulatory Limitations: no limitations History of Present Illness HPI narrative: 74-year-old male presenting today with draining urostomy tube. Patient was seen 2 days ago with the same issue, was sent to [place] for further management. Patient was discharged home yesterday and nephrostomy tube has not been draining. Patient then had an ostomy bag placed on the previous nephrostomy tube site which is above the current nephrostomy tube. This has been draining all of the urine. Unfortunately the bag was not sealed properly and has a split on the bottoms which has been draining. Patient has had a diaper on his back to hold all of the urine. Denies systemic symptoms, no fevers, chills, nausea or vomiting. states that she spoke to the urology team today who told her that this leaking is expected from the 1st nephrostomy site and that she should continue to use an absorbent pad. Related Data Home Medications ?Medication ?Instructions ?Recorded ?Confirmed amlodipine 5 mg tablet 5 mg PO DAILY 01/07/2504/03 aspirin 81 mg tablet,delayed 81 mg PO DAILY 01/07/25 0 01/07/25 release (Adult Aspirin Regimen) atorvastatin 40 mg tablet 40 mg PO DAILY 01/07/2510/27 budesonide-formoterol HFA 160 2 inh inhalation Q12H FL N 01/07/25 04/03/25 mcg-4.5 mcg/actuation aerosol inhaler doxycycline hyclate 50 mg capsule 50 mg PO DAILY 01/0704/03/25 metoprolol succinate 50 mg 50 mg PO DAILY 01/07/2510/27 tablet,extended release 24 hr fexofenadine 180 mg tablet 180 mg PO DAILY 04/03/25 (Juliette Flor) oxycodone 5 mg tablet PO 04/03/25 Allergies Allergy/AdvReac Type Severity Reaction Status Date / Time amoxicillin Allergy Intermediate Rash Verified 04/03/25 09:36 lisinopril AdvReac Cough Verified 04/03/25 09:36 Review of Systems Status of ROS: Reports: 6 or more systems reviewed and unremarkable except as noted in History and below PFSH PFSH Social History Smoking Status: Never smoker Do you use any of these nicotine containing products: None How often do you have a drink containing alcohol: never AUDIT-C Alcohol total score: 0 Non-prescribed substance use: denies use service: No Exam Narrative: Exam Narrative: Well-nourished well-developed patient in no acute distress. Alert and oriented. Answers questions appropriately. Mood and affect are appropriate. Thoughts are goal oriented and rational. No tangential or magical thinking noted. Patient speaks in full sentences without needing to catch his breath. Nephrostomy tube in place without any drainage in the bag. Patient does have a diaper taped to his back that is soaked in urine. The ostomy bag that is covering the previous nephrostomy tube site is leaking, the adhesive is no longer attached to the skin. Const: Vital Signs, click to edit/add: Vital Signs - 24 hr 04/05/25 19:38 Temperature 97.8 F Pulse Rate [Pulse Oximeter] 73 Respiratory Rate 18 Blood Pressure [Ri ght Upper Arm] 130/75 Pulse Oximetry 97 Oxygen Delivery Me thod Room Air Course Course ED Course: Area was cleaned by nursing and a new bag was placed. Vital Signs Vital signs: Initial Vital Signs Temperature 97.8 F 04/05/25 19:38 Temperature Source Temporal Artery Scan 04/05/25 19:38 Pulse Rate 73 04/05/25 19:38 Respiratory Rate 18 04/05/25 19:38 Blood Pressure 130/75 04/05/25 19:38 Blood Pressure Mean 93 04/05/25 19:38 Blood Pressure Position Sitting 04/05/25 19:38 Pulse Oximetry 97 04/05/25 19:38 Oxygen Delivery Method Room Air 04/05/25 19:38 Vital Signs Temperature 97.8 F 04/05/25 19:38 Pulse Rate 73 04/05/25 19:38 Respiratory Rate 18 04/05/25 19:38 Blood Pressure 130/75 04/05/25 19:38 Pulse Oximetry 97 04/05/25 19:38 Oxygen Delivery Method Room Air 04/05/25 19:38 Temperature 97.8 F 04/05/25 19:38 Pulse Rate 73 04/05/25 19:38 Respiratory Rate 18 04/05/25 19:38 Blood Pressure 130/75 04/05/25 19:38 Pulse Oximetry 97 04/05/25 19:38 Oxygen Delivery Method Room Air 04/05/25 19:38 Medical Decision Making MDM Narrative Medical decision making narrative: Leaking ostomy site. Bag was changed. Patient will follow-up as instructed. Discharge Plan Discharge Clinical Impression: Nephrostomy tube failure with subsequent urine leak Patient Disposition: Home, Self-Care Condition: Improved Additional Instructions: Follow-up with your urology team as instructed. Prescriptions: No Action metoprolol succinate 50 mg tablet extended release 24 hr 50 mg PO DAILY amlodipine 5 mg tablet 5 mg PO DAILY atorvastatin 40 mg tablet 40 mg PO DAILY budesonide-formoterol 160-4.5 mcg/actuation HFA aerosol inhaler 2 inh inhalation Q12H PRN doxycycline hyclate 50 mg capsule 50 mg PO DAILY aspirin [Adult Aspirin Regimen] 81 mg tablet,delayed release (DR/EC) 81 mg PO DAILY Patient Comments: holding until Apr 05, 2925 oxycodone 5 mg tablet PO fexofenadine [Juliette Hives] 180 mg tablet 180 mg PO DAILY Follow Up/Referrals: Richar Rivas MD [Primary Care Provider, Family Practice] Stand Alone Forms: [facility] [place] Info Instructions
== END 2025-04-05 22:50 | disposition home or self-care (01) ==
PROVIDERS: Emergency Provider Family Medicine; PCP Family Medicine
DX: T83.032A Leakage of nephrostomy catheter, initial encounter (principal)
CPT/HCPCS: 99282; 99283; 99284

== ENCOUNTER 2025-04-06 17:02 | Emergency (ER) | payer MEDICARE, BC, SELFPAY ==
--- OUTSIDE RECORDS SUMMARY | 2025-04-06 17:05 | XMS_ITS | Clinical Summary ---
Author Organization [facility] Address [address] [place] [address] Care Team Providers Care Examination Proctor Name Role Phone Unavailable Primary Care Provider Unavailabl e Source Comments Patient records contain information from all sites at [facility]. For routine questions regarding patient records, call [phone] during business hours, M-F 8:00 AM - 5:00 PM Central Time. 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
--- OUTSIDE RECORDS SUMMARY | 2025-04-06 17:05 | XMS_ITS | Clinical Summary ---
Author Organization [facility] Address [address] [place] [address] Care Team Providers Care Supervisor Covering And Lining Name Role Phone Richar Rivas MD Primary Care Provider [phone] Allergies Active Allergy Reactions Criticality Noted Date [...] Sex Assigned at Male 10/16/2021 11:49 AM SOFTWARE SUPPORT ENGINEER Legal Sex Male 3:11 AM SOFTWARE SUPPORT ENGINEER Gender Identity Male 10/16/2021 11:49 AM SOFTWARE SUPPORT ENGINEER Sexual Orientation Straight 10/16/2021 11 :49 AM SOFTWARE SUPPORT ENGINEER Last Filed Vital Signs Vital Sign Reading Time Taken Comments Blood Pressure 142/89 10/26/2021 2:20 PM SOFTWARE SUPPORT ENGINEER Pulse 72 10/26/2021 2:20 PM SOFTWARE SUPPORT ENGINEER Temperature 36.2 C (97.2 F) 10/26/2021 2:20 PM SOFTWARE SUPPORT ENGINEER Respiratory Rate 16 10/26/2021 2:20 PM SOFTWARE SUPPORT ENGINEER Oxygen Saturation 98% 10/26/2021 2:20 PM SOFTWARE SUPPORT ENGINEER Inhaled Oxygen Concentration - - Weight 116.2 kg (256 lb 1.6 oz) 10/26/2021 9:03 AM SOFTWARE SUPPORT ENGINEER Height 190.5 cm (6' 3) 10/26/2021 9:03 AM SOFTWARE SUPPORT ENGINEER Body Mass Index 32.01 10/26/2021 9:03 AM SOFTWARE SUPPORT ENGINEER Plan of Treatment Health Maintenance Due Date [...] LABORATORY [address] [place] [address], [facility] * Glucose (External Result) (06/22/2020 10:42 AM CDT) Glucose (External) 100 65 - 100 mg/dL [facility] Blood 06/22/2020 10:4 2 AM CDT Narrative [facility] - 06/22/2020 10:42 AM CDT Care Everywhere, [facility] us Provider Outside LAB - HIM EXTERNAL RESULT Final Result [facility] [address] [place] [address], [facility] * Colonoscopy - HIM Scan (03/06/2018) Narrative Renita Nell Mitzy - 03/06/2018 Care Everywhere, [place] us Provider Outside PROCEDURES Final Result from Last 3 Months or Most Recently Relevant to Health Maintenance Insurance MEDICARE [facility] MEDICARE SUPPLEMENT Care Teams Supervisor Covering And Lining Relationship Specialty Start Date End Date Richar Rivas MD PCP - General Family Medicine 10/03/21
--- OUTSIDE RECORDS SUMMARY | 2025-04-06 17:05 | XMS_ITS | Clinical Summary ---
Author Organization [employer] [facility] Address [address] [place] [address] Care Team Providers Care Bay Stocker Name Role Phone Richar Rivas MD Primary Care Provider [phone]- [phone] Ambrosio Lizarraga MD Unavailable [phone] Allergies Active Allergy Reactions Criticality Noted Date Comments Amoxicillin Rash High 10/06/2007 facial 1998 Lisinopril Cough 09/08/2020 Medications aspirin enteric coated 81 mg tablet Take 1 tablet by mouth once daily with a meal. 0 2 Active fexofenadine (GRAHAM) 180 mg tablet Take 180 mg by mouth once daily. Do not crush or chew. 0 2 Active Hichq-7-[id number]-EPA -Fish Oil (Fish OiL) 1,000 mg (120 [...] sustained-relea se tabletIndicatio ns:Coronary artery disease involving chinik coronary artery of chinik heart without angina pectoris Take 1 Tablet [...] < 70 12/27/2010 CAD (coronary artery disease), chinik coronary a rtery 12/27/2010 Acute myocardial infarction 11/10/2010 Hypertension 11/10/2010 Unspecified sinusitis (chronic) 10/19/2010 Rosacea 10/06/2007 Allergic rhinitis, cause unspecified Resolved Problems Problem Noted Date Diagnosed Date Resolved Date Other and unspecified hyperlipidemia 10/06/2007 12/27/2010 Encounters Date Type Department Care Team Description 04/06/2025 Travel 04/06/2025 Telephone [facility] [address] [place] [address] Richar Rivas MD Questions 04/05/2025 Telephone [facility] Interventional Radiology Clinic [address] [place] [phone] Sharon Turner, RN Drain Care 04/05/2025 Travel 04/05/2025 Patient Outreach [facility] [address] [place] [address] Ryann Rivera RN Primary RN Care Management; Hospital F/U (Lace=53) 04/03/2025 5:38 PM CDT - 04/04/2025 1:48 PM CDT Hospital Encounter [facility] [address] [place] [address] [facility], w Hospitalists Of Kt Michaud MD Storlie, Erik John, MD Discharge Disposition: Home Self Care 04/03/2025 Orders Only [facility] Scanner 1 scan: (1-Ord) [facility], CT ABDOMEN PEVIC W CON, 04/03/2025 04/02/2025 Travel 04/01/2025 Orders Only [facility] Medical Imaging [address] [place] [address] Rebeka Marquis <No scans attached> 04/01/2025 Orders Only [facility] [address] [place] [address] Tubrudy, Isi <No scans attached> 04/01/2025 Orders Only [facility] Medical Imaging [address] [place] [address] Tubah, Isi <No scans attached> 04/01/2025 Orders Only [facility] [address] [place] [address] Rebeka Marquis <No scans attached> 03/31/2025 12:43 PM CDT Anesthesia Event [facility] [address] [place] [address] Lynn Newton, TRANSIT MAN 03/31/2025 11:15 AM CDT - 03/31/2025 1:43 PM CDT Surgery [facility] [address] [place] [address] Sonny Mckeon MD LEFT PERCUTANEOUS NEPHROLITHOTOMY, LEFT ANTEGRADE NEPHROSTOGRAM, CYSTOSCOPY WITH LEFT RETROGRADE 03/31/2025 7:46 AM CDT - 04/02/2025 1:30 PM CDT Hospital Encounter [facility] [address] [place] [address] Sonny Mckeon MD Calculus of kidney Discharge Disposition: Home Self Care 03/30/2025 Travel 03/29/2025 10:15 AM CDT Orders Only [facility] [address] [place] [address] Lab, [place] [facility] 03/29/2025 8:30 AM CDT Office Visit [facility] [address] [place] [address] Vicente Hayes MD Sleep Follow-up 03/29/2025 Travel 03/27/2025 Orders Only [facility] Scanner 1 scan: (1-Ord) [facility], COMPLIANCE REPORT, 03/27/2025 03/24/2025 Travel 03/10/2025 4:05 PM CDT Office Visit [facility] [address] [place] [address] Richar Rivas MD Preoperative Exam (Kidney stone /Surgery 03/31/2025) 03/10/2025 Travel 02/22/2025 Travel 02/14/2025 Telephone [facility] [address] [facility] [address] Richar Rivas MD Abnormal Lab Results 02/02/2025 10:50 AM CDT Office Visit [facility] [address] [place] [address] Richar Rivas MD Preoperative Exam (Kidney stone/02/23/25 ANW/Dr. Mckeon) 02/02/2025 Travel 01/28/2025 Travel 01/18/2025 Orders Only [facility] Medical Imaging [address] [place] [address] Rebeka Marquis 1 scan: Neph Tube & PCNL 01/07/2025 Orders Only [facility] Scanner 1 scan: (1-Ord) [facility], ABDOMEN PELVIS W CON , 01/07/2025 from Last 3 Months Immunizations Immunization Administration Dates Next Due COVID-19 vaccine (Pfizer-Bio NTech 30mcg/0.3mL) 12YO+ BIVALENT PF, MDV 08/11/2022 COVID-19 vaccine ([employer]-Bio NTech 30mcg/0.3mL) 12YO+ KAREN-SUCROSE PF, MDV 12/27/2021 COVID-19 vaccine ([employer]-Bio [employer]ech 30mcg/0.3mL) PF, MDV 11/25/2020,11/04/2020 Influenza A [...] on file Legal Sex Male 5:24 AM WHITE SOURER Gender Identity Not on file Sexual Orientation [...] Upcoming Encounters Date Type Department Care Team (Latest Contact Info) Description 04/07/2025 7:35 AM CDT Office Visit [facility] [address] [place] [address] Richar Rivas MD [address] [place] [address] 04/27/2025 7:45 AM CDT Hospital Encounter [facility] [address] [place], [place] [phone] Sonny Mckeon MD [facility] [place] [address] 04/27/2025 7:45 AM CDT - 04/27/2025 10:16 AM CDT Surgery [facility] [address] [place] [address] Sonny Mckeon MD [address] [place] [address] [address] [place] [address] left percutaneous nephrolithotomy 06/09/2025 7:00 AM CDT Orders Only [facility] [address] [place] [address] [facility] 07/06/2025 1:55 PM WHITE SOURER Office Visit [facility] [address] [place] [address] Richar Rivas MD [address] [place] [address] Scheduled Procedures Name Priority Associated Diagnoses Date/Ti me REMOVAL PERCUTANEOUS KIDNEY STONE Tier 2: within 30 days KIDNEY STONES 04/27/2025 7:45 AM CDT Health Maintenance Due Date Last Done Comments COVID-19 vaccine series (7 - Pfizer risk 2023- season) 2024 06/02/2024, 08/11/2022, 12/27/2021, Additional history [...] on patient's age to complete this topic Goals Goal Patient Goal Type Associated Problems Recent Progress Patient-Stated? Author Autogenera alem Goal Care Plan Autogenerated Problem No Yonatan Stephanie Procedures Procedure Name Priority Date/Time Associated Diagnosis Comments GLUCOSE METER Timed 04/04/2025 12:29 PM CDT CREATININE Early AM 04/04/2025 7:08 AM CDT GLUCOSE METER Timed 04/04/2025 6:30 AM CDT GLUCOSE METER Timed 04/03/2025 9:51 PM CDT GLUCOSE METER Timed 04/03/2025 7:10 PM CDT SCAN-CT INTERPRETATION 12:00 AM CDT CREATININE Today 04/02/2025 9:55 AM CDT [...] Calculus of kidney ENDOTRACHEAL TUBE Routine 03/31/2025 12:59 PM CDT ENDOTRACHEAL TUBE Routine 03/31/2025 12:59 PM CDT IR NEPHROSTOMY TUBE LEFT Routine 025 12:25 PM CDT Calculus of kidney CYSTOSCOPY RETROGRADES Tier 2: within 30 days 03/31/2025 12:23 PM CDT C61: Malignant neoplasm of prostate Case Notes SHOCK PULSE, TUBE BEING PLACED AT 8:00 IN IR REMOVAL PERCUTANEOUS KIDNEY STONE Tier 2: within 30 days 03/31/2025 12:23 PM CDT C61: Malignant neoplasm of prostate Case Notes SHOCK PULSE, TUBE BEING PLACED AT 8:00 IN IR CREATININE STAT 03/31/2025 8:47 AM CDT PROTIME-INR STAT 03/31/2025 8:47 AM CDT PLATELET COUNT STAT 03/31/2025 8:47 AM CDT HEMOGLOBIN STAT 03/31/2025 8:47 AM CDT GLUCOSE METER Timed 03/31/2025 8:30 AM CDT SCAN-CARDIAC STRIP 03/31/2025 12:00 AM CDT BASIC METABOLIC PANEL Routine 03/29/2025 [...] of5 resultswithin the time period is included. GLUCOSE METER 110(H) 65 - 100 mg/dL 04/04/2025 12:30 PM CDT [facility] Blood BLOOD SPECIMEN / Unknown 04/04/2025 12:29 PM CDT 04/04/2025 12:30 PM CDT Raymond Ford MD CHEMISTRY Final Resul t [facility] [address] [place] [id number] [place] [address] * (ABNORMAL) CREATININE (04/04/2025 7:08 AM CDT) Only the most recent of5 resultswithin the time period is included. eGFR 59(L) >90 mL/min/1.7 3m2 04/04/2025 7:34 AM CDT [facility] Comment:As of 2021, eG FR is calculated by the CKD-EPI creatinine equation without race adjustment. eGFR can be influenced by muscle mass, exercise, and diet. The reported eGFR is an estimation only and is only applicable if the renal function is stable. CREATININE 1.26(H) 0.70 - 1.20 mg/dL 04/04/2025 7:34 AM CDT [facility] Blood BLOOD SPECIMEN / Unknown Venipuncture / Unknown 04/04/2025 7:08 AM CDT 04/04/2025 7:12 AM CDT Kt Michaud MD CHEMISTRY Final Res ult [facility] [address] [place] [address], [place] * SCAN-CT INTERPRETATION (04/03/2025 12:00 AM CDT) Only the most recent of2 resultswithin the time period is included. Anatomical Region Laterality Modality Other us Scanner OTHER Final Result * IR NEPHROSTOMY TUBE LEFT (04/01/2025 9:42 [...] renal pelvis. The tract was dilated. 8 Hungarian Mitchell-Cabezas nephrostomy catheter was inserted over the [...] the lower pole and renal pelvis. 8 Hungarian nephrostomy tube was placed uneventfully into the lower pole. Completion antegrade nephrostogram demonstrates satisfactory position of the pigtail at the renal pelvis stone. Extravasation at the ureteropelvic junction is noted similar to 1 day prior. Impression: Successful placement of a left 8 Hungarian nephrostomy tube using ultrasound and fluoroscopic guidance. Jo US IR Final Re sult * Hemoglobin (04/01/2025 7:42 AM CDT) Only the most recent of2 resultswithin the time period is included. HEMOGLOBIN 13.7 13.5 - 17.5 g/dL 04/01/2025 8:45 AM CDT [facility] MCV 90 80 - 100 fL 04/01/2025 8:45 AM CDT [facility] Blood BLOOD SPECIMEN / Unknown Butterfly / Unknown 04/01/2025 7:42 AM CDT 04/01/2025 8:10 AM CDT Brandy US HEMATOLOGY Final R esult [facility] [address] [place] [address], [place] * CT ABDOMEN PELVIS STONE PROTOCOL [...] For Patients: As a result of the 21st Century Cures Act, medical imagingexams and procedure reports [...] MD @ 04/03/2025 12:27:22 PM (Electronically Signed) us Brandy US CT Final R esult * [...] PR1 (03/31/2025 12:59 PM CDT) Narrative Lynn Newton, TRANSIT MAN - 03/31/2025 12:59 PM CDT Lynn Newton [...] 440 thou/cu mm 03/31/2025 9:02 AM CDT [facility] MPV 10.3 6.5 - 11.0 fL 03/31/2025 9:02 AM CDT [facility] Blood BLOOD SPECIMEN / Unknown Butterfly / Unknown 03/31/2025 8:47 AM CDT 03/31/2025 8:53 AM CDT Lisa Bettencourt MD H EMATOLOGY Final Result Performing Organization Address [facility] Co de Phone Number [facility] [address] [place] [address], * (ABNORMAL) Protime-INR (03/31/2025 8:47 AM CDT) INR 1.1 <1.3 03/31/2025 9:05 AM CDT [facility] PROTIME 12.7(H) 10.6 - 12.4 sec 03/31/2025 9:05 AM CDT [facility] Blood BLOOD SPECIMEN / Unknown Butterfly / Unknown 03/31/2025 8:47 AM CDT 03/31/2025 8:53 AM CDT Narrative [facility] - 03/31/2025 9:05 AM CDT Therapeutic [...] H EMATOLOGY Final Result Performing Organization Address City/[facility]/ZIP Co de Phone Number [facility] [address] [address], [place] * SCAN-CARDIAC STRIP (03/31/2025 12:00 AM CDT) Narrative 03/31/2025 12:00 AM CDT Ordered by an unspecified provider. Other Clinical Staff OTHER Final Resul t * (ABNORMAL) BASIC METABOLIC PANEL (03/29/2025 10:12 AM CDT) GLUCOSE 115(H) 65 - 99 mg/dL [facility] Comment: Fasting reference interval For [...] Marcello CALCIUM 9.9 8.6 - 10.3 mg/dL [facility] Blood BLOOD SPECIMEN / Unknown 03/29/2025 10:12 AM CDT 03/29/2025 10:12 AM CDT Richar Rivas MD CHEMISTRY Final Resu lt [facility] [address] [place] [address], [place] [phone] [facility] [address] [place] [address] * SCAN-DIAGNOSTIC REPORT (03/27/2025 12:00 AM CDT) Scanner OTHER Final Result * POTASSIUM (02/02/2025 12:29 PM CDT) Pathologist [facility] POTASSIUM 4.4 3.5 - 5.3 mmol/L [facility] Blood BLOOD SPECIMEN / Unknown 02/02/2025 12:29 PM CDT 02/02/2025 12:30 PM CDT Richar Rivas MD CHEMISTRY Final Resu lt Performing Organization Address [facility] Co de Phone Number [facility] [address] [place] [address], [place] [phone] [facility] [address] [place] [address] * ANTI HCV (06/06/2022 10:10 AM CDT) [facility] HEPATITIS C ANTIBODY Non-[facility]act [facility] Non-[facility] 06/07/2022 4:24 AM CDT [facility] Comment:Antibodies to HCV no t detected; does not exclude the possibility of exposure to HCV. Blood BLOOD SPECIMEN / Unknown Venipuncture / Unknown 06/06/2022 10:10 AM CDT 06/06/2022 10:13 AM CDT Richar Rivas MD SEND OUTS Final Resu lt [facility] [address] [place] [address], [place] from Last 3 Months or Most Recently Relevant to Health Maintenance Additional Health Concerns Active Problems Noted Date Diagnosed Date Autogenerated Problem 04/06/2025 Insurance MEDICARE PART B HB ONLY MEDICARE PART A HB ONLY MEDICARE PB ONLY Member Subscriber Plan / Payer (Ef fective 2013-Present) Name:Jayden Crook Member ID:[id number] Relation to Subscriber:Self Name:Jayden Crook Subscriber ID:[id number] Payer ID:Not on file Group ID:Not on file Type:Not on file Address: ATTN: CLAIMS [address] [facility] Advance Directives * Full Code (Latest Code [...] 12:27 PM 11/12/2010 2:45 PM Care Teams Bay Stocker Relationship Specialty Start Date End Date Richar Rivas MD [address] [place] [address] PCP - General 05/29/06 Ambrosio Lizarraga MD [address] [place] [address] Cardiology Cardiovascular Disease 09/22/14
[2025-04-06 17:16] VITALS: BP 107/63; PULSE 69; RESP 18; TEMP 36.2; O2SAT 98; BMI 30.2
--- NOTE | 2025-04-06 18:30 | ED.GENADULT ---
HPI - General Adult General Date Seen: 04/06/25 Chief complaint: Post Op Complication Stated complaint: Drainage from 2 procedures Time Seen by Provider: 04/06/25 17:28 Source: patient Mode of arrival: ambulatory Limitations: no limitations History of Present Illness HPI narrative: Patient is a 74-year-old male who is presenting here with his for a urine leak from his nephrostomy site. He has been seen in this emergency department 3 the past 4 days for leakage and was transferred to [facility] for his nephrostomy tube not draining on Saturday. When they arrived it was beginning to drain and he was discharged the next morning. Initially the nephrostomy tube was not draining again yesterday and he has lots of drainage around the site so they came back in to the emergency department to try and help as the pads they are using in the ostomy bag that was put on is not absorbing the urine adequately and his bed is constantly soaked in urine each morning. No other concerns noted Related Data Home Medications ?Medication ?Instructions ?Recorded ?Confirmed amlodipine 5 mg tablet 5 mg PO DAILY 01/07/25 04/03/25 aspirin 81 mg tablet,delayed 81 mg PO DAILY 01/07/25 01/07/25 release (Adult Aspirin Regimen) atorvastatin 40 mg tablet 40 mg PO DAILY 01/07/25 04/03/25 budesonide-formoterol HFA 160 2 inh inhalation Q12H PRN 01/07/25 04/03/25 mcg-4.5 mcg/actuation aerosol inhaler doxycycline hyclate 50 mg capsule 50 mg PO DAILY 01/07/25 04/03/25 metoprolol succinate 50 mg 50 mg PO DAILY 01/07/25 04/03/25 tablet,extended release 24 hr fexofenadine 180 mg tablet 180 mg PO DAILY 04/03/25 04/03/25 (Juliette Hives) oxycodone 5 mg tablet PO 04/03/25 Allergies Allergy/AdvReac Type Severity Reaction Status Date / Time amoxicillin Allergy Intermediate Rash Verified 04/03/25 09:36 lisinopril AdvReac Cough Verified 04/03/25 09:36 Review of Systems Narrative: Pertinent systems reviewed and were negative unless stated in HPI PFSH PFSH Social History Smoking Status: Never smoker Do you use any of these nicotine containing products: None How often do you have a drink containing alcohol: never AUDIT-C Alcohol total score: 0 Non-prescribed substance use: denies use service: No Exam Narrative: Exam Narrative: Const: Well-nourished, Well-developed, in now distress Eyes: PERRL, no conjunctival injection, and symmetrical lids HENT: Atraumatic external nose and ears. Moist mucous membranes. MSK:Extremities w/o deformity, Normal Active ROM Skin: Warm, Dry. Nephrostomy tube coming from his left flank with a another site couple cm away were previous nephrostomy to was. The old nephrostomy site is currently leaking urine Neuro: Normal Muscle tone, No focal neurological deficits. Psych: Awake, Alert, & Oriented x3. Appropriate mood and affect. Const: Vital Signs, click to edit/add: Vital Signs - 24 hr 04/06/25 17:16 Temperature 97.2 F L Pulse Rate [Pulse Oximeter] 69 Respiratory Rate 18 Blood Pressure [Ri ght Upper Arm] 107/63 Pulse Oximetry 98 Oxygen Delivery Me thod Room Air Course Vital Signs Vital signs: Initial Vital Signs Temperature 97.2 F L 04/06/25 17:16 Temperature Source Temporal Artery Scan 04/06/25 17:16 Pulse Rate 69 04/06/25 17:16 Respiratory Rate 18 04/06/25 17:16 Blood Pressure 107/63 04/06/25 17:16 Blood Pressure Mean 77 04/06/25 17:16 Pulse Oximetry 98 04/06/25 17:16 Oxygen Delivery Method Room Air 04/06/25 17:16 Vital Signs Temperature 97.2 F L 04/06/25 17:16 Pulse Rate 69 04/06/25 17:16 Respiratory Rate 18 04/06/25 17:16 Blood Pressure 107/63 04/06/25 17:16 Pulse Oximetry 98 04/06/25 17:16 Oxygen Delivery Method Room Air 04/06/25 17:16 Temperature 97.2 F L 04/06/25 17:16 Pulse Rate 69 04/06/25 17:16 Respiratory Rate 18 04/06/25 17:16 Blood Pressure 107/63 04/06/25 17:16 Pulse Oximetry 98 04/06/25 17:16 Oxygen Delivery Method Room Air 04/06/25 17:16 Medical Decision Making MDM Narrative Medical decision making narrative: Patient is a 74-year-old male presenting to the emergency department for leakage from previous nephrostomy site. He is here with his . They tried to put on a urostomy bag yesterday but is leaking around. We tried to put on a small urine bag there were used to collect urine from infants and I did hold appropriately but is too small and will likely fell up quickly. When we tried to put on a separate urostomy bag we could not get it to stick adequately. It was decided we use highly absorbent diapers over the area try and help with the leakage. They spoke to their urology office today and was told that the nurse for the urologist will call them tomorrow. At this time he is safe for discharge Discharge Plan Discharge Clinical Impression: Continuous urine leakage Patient Disposition: Home, Self-Care Condition: Stable Additional Instructions: Make sure to speak with your urology team as soon as possible. Prescriptions: No Action metoprolol succinate 50 mg tablet extended release 24 hr 50 mg PO DAILY amlodipine 5 mg tablet 5 mg PO DAILY atorvastatin 40 mg tablet 40 mg PO DAILY budesonide-formoterol 160-4.5 mcg/actuation HFA aerosol inhaler 2 inh inhalation Q12H PRN doxycycline hyclate 50 mg capsule 50 mg PO DAILY aspirin [Adult Aspirin Regimen] 81 mg tablet,delayed release (DR/EC) 81 mg PO DAILY Patient Comments: holding until Apr 05, 2925 oxycodone 5 mg tablet PO fexofenadine [Juliette Hives] 180 mg tablet 180 mg PO DAILY Follow Up/Referrals: Richar Rivas MD [Primary Care Provider, Family Practice] Stand Alone Forms: [email or web address] Info Instructions
== END 2025-04-06 18:39 | disposition home or self-care (01) ==
PROVIDERS: Emergency Provider Student in an Organized Health Care Education/Training Program; PCP Family Medicine
DX: T83.032A Leakage of nephrostomy catheter, initial encounter (principal)
CPT/HCPCS: 99282

== ENCOUNTER 2025-04-08 11:22 | Emergency (ER) | payer MEDICARE, BC, SELFPAY ==
--- OUTSIDE RECORDS SUMMARY | 2025-04-08 11:25 | XMS_ITS | Clinical Summary ---
Author Organization [facility] Address [address] [place] [id number] Care Team Providers Care Wrong Address Clerk Name Role Phone Richar Rivas MD Primary Care Provider [phone] Allergies Active Allergy Reactions Criticality Noted Date [...] Sex Assigned at Male 10/16/2021 11:49 AM STRIP PICKER Legal Sex Male 3:11 AM STRIP PICKER Gender Identity Male 10/16/2021 11:49 AM STRIP PICKER Sexual Orientation Straight 10/16/2021 11 :49 AM STRIP PICKER Last Filed Vital Signs Vital Sign Reading Time Taken Comments Blood Pressure 142/89 10/26/2021 2:20 PM STRIP PICKER Pulse 72 10/26/2021 2:20 PM STRIP PICKER Temperature 36.2 C (97.2 F) 10/26/2021 2:20 PM STRIP PICKER Respiratory Rate 16 10/26/2021 2:20 PM STRIP PICKER Oxygen Saturation 98% 10/26/2021 2:20 PM STRIP PICKER Inhaled Oxygen Concentration - - Weight 116.2 kg (256 lb 1.6 oz) 10/26/2021 9:03 AM STRIP PICKER Height 190.5 cm (6' 3) 10/26/2021 9:03 AM STRIP PICKER Body Mass Index 32.01 10/26/2021 9:03 AM STRIP PICKER Plan of Treatment Health Maintenance Due Date [...] Cholesterol (External) 125 100 - 199 mg/dL [facility] Triglycerides (External) 163(H) <150 mg/dL [facility] HDL Cholesterol (External) 28(L) >40 mg/dL [facility] LDL Cholesterol (External) 64 <=130 mg/dL [facility] Non HDL Cholesterol (External) 97 <145 mg/dL [facility] Blood 06/22/2020 10:4 2 AM CDT Narrative [facility] - 06/22/2020 10:42 AM CDT Care Everywhere, [facility] us Provider Outside LAB - HIM EXTERNAL RESULT Final Result [facility] [address] [place] [address], [facility] * Glucose (External Result) (06/22/2020 10:42 AM CDT) Glucose (External) 100 65 - 100 mg/dL [facility] Blood 06/22/2020 10:4 2 AM CDT Narrative [facility] - 06/22/2020 10:42 AM CDT Care Everywhere, [facility] us Provider Outside LAB - HIM EXTERNAL RESULT Final Result [facility] [address] [place] [address], [facility] * Colonoscopy - HIM Scan (03/06/2018) Narrative Renita Nell Mitzy - 03/06/2018 Care Everywhere, [place] us Provider Outside PROCEDURES Final Result from Last 3 Months or Most Recently Relevant to Health Maintenance Insurance MEDICARE [facility] MEDICARE SUPPLEMENT Care Teams Wrong Address Clerk Relationship Specialty Start Date End Date Richar Rivas MD PCP - General Family Medicine 10/03/21
--- OUTSIDE RECORDS SUMMARY | 2025-04-08 11:25 | XMS_ITS | Clinical Summary ---
Author Organization [employer] Address [address] [place] [id number] Care Team Providers Care Accounts Receivable Bookkeeper Name Role Phone Richar Rivas MD Primary Care Provider [phone] Ambrosio Lizarraga MD Unavailable [phone] Allergies Active Allergy Reactions Criticality Noted Date Comments Amoxicillin Rash High 10/06/2007 facial 1998 Lisinopril Cough 09/08/2020 Medications aspirin enteric coated 81 mg tablet Take 1 tablet by mouth once daily with a meal. 0 2 Active fexofenadine (GRAHAM) 180 mg tablet Take 180 mg by mouth once daily. Do not crush or chew. 0 2 Active [id number] -Fish Oil (Fish OiL) 1,000 mg (120 mg-180 mg) cap Take 1 Capsule by mouth once daily. Active doxycycline 100 mg tabletIndicatio ns:Rosacea Take [...] Capsule 03/31/2025 5:24 PM CDT 5 Active Additional Information Patient taking differently:100 mg OralBID PRN, Constipation, Reported on 04/07/2025 oxyCODONE (ROXICODONE) 5 mg immediate release tabletIndicatio ns:Calculus of kidney Take 1 Tablet (5 mg) by mouth every 6 hours if needed for Pain. 10 Tablet 04/01/2025 3:50 PM CDT 5 Active Additional Information Patient not taking.Reported on 04/07/2025 metoprolol succinate (TOPROL XL) 50 mg sustained-relea se tabletIndicatio ns:Coronary artery disease involving buckland coronary artery of buckland heart without angina pectoris Take 1 Tablet (50 mg) by mouth once daily. 90 Tablet 3 5 Active lancets (Microlet Lancet)Indicati ons:diabetes mellitus For testing blood sugars at home 3 times per week 100 Each 5 Active budesonide-form oteroL (Symbicort) 160-4.5 mcg/actuation (160-4.5 mcg each actuation) inhalerIndicati ons:Asthma, unspecified asthma severity, unspecified whether complicated, unspecified whether persistent (HC) Inhale 2 Puffs by mouth two times daily. As needed 1 Each 11 5 Active blood sugar diagnostic (Contour Next Test Strips) stripIndication s:diabetes mellitus Dispense test strips covered by the patient insurance. Test 3 times per week 50 Each 12 5 Active atorvastatin (LIPITOR) 40 mg tabletIndicatio ns:ASHD (arteriosclerot ic heart disease) Take 1 Tablet (40 mg) by mouth once daily. 90 Tablet 4 5 Active amLODIPine (NORVASC) 5 mg tabletIndicatio ns:HTN (hypertension) Take 1 Tablet (5 mg) by mouth once daily. 90 Tablet 3 5 Active CPAPIndications :CANDIE (obstructive sleep apnea) CPAP machine for home use at pressure 4-15, CPAP mask- mask of choice, fit to comfort one per 3 months 1 Each 4 07/28/2 025 Discontin ued(*Med complete/ Regimen complete/ Level of care change) blood sugar diagnostic (Contour Next Test Strips) stripIndication s:diabetes mellitus Dispense test strips covered by the patient insurance. Test 3 times per week 50 Each 12 4 025 Discontin ued(Reord er (E-cancel not sent)) lancets (Microlet Lancet)Indicati ons:diabetes mellitus For testing blood sugars at home 3 times per week 100 Each 4 025 Discontin ued(Reord er (E-cancel not sent)) budesonide-form oteroL (Symbicort) 160-4.5 mcg/actuation (160-4.5 mcg each actuation) inhalerIndicati ons:Asthma, unspecified asthma severity, unspecified whether complicated, unspecified whether persistent (HC) Inhale 2 Puffs by mouth two times daily. As needed 1 Each 11 4 025 Discontin ued(Reord er (E-cancel not sent)) atorvastatin (LIPITOR) 40 mg tabletIndicatio ns:ASHD (arteriosclerot ic heart disease) Take 1 Tablet (40 mg) by mouth once daily. 90 Tablet 4 4 025 Discontin ued(Reord er (E-cancel not sent)) amLODIPine (NORVASC) 5 mg tabletIndicatio ns:HTN (hypertension) Take 1 Tablet (5 mg) by mouth once daily. 90 Tablet 3 4 025 Discontin ued(Reord er (E-cancel not sent)) metoprolol succinate (TOPROL XL) 50 mg sustained-relea se tabletIndicatio ns:Coronary artery disease involving buckland coronary artery of buckland heart without angina pectoris Take 1 Tablet (50 mg) by mouth once daily. 90 Tablet 3 4 025 Discontin ued(Reord er (E-cancel not sent)) Active Problems Problem Noted Date Diagnosed Date [...] < 70 12/27/2010 CAD (coronary artery disease), buckland coronary a rtery 12/27/2010 Acute myocardial infarction 11/10/2010 Hypertension 11/10/2010 Unspecified sinusitis (chronic) 10/19/2010 Rosacea 10/06/2007 Allergic rhinitis, cause unspecified Resolved Problems Problem Noted Date Diagnosed Date Resolved Date Other and unspecified hyperlipidemia 10/06/2007 12/27/2010 Encounters Date Type Department Care Team Description 04/07/2025 7:35 AM CDT Office Visit [facility] [address] [place] [address] Richar Rivas MD Hospital F/U ([facility]vedo - kidney stone/Go over lab results) 04/07/2025 Telephone [facility] [address] [place] [address] Richar Rivas MD 04/06/2025 Travel 04/06/2025 Telephone [facility] [address] [place] [address] Richar Rivas MD Questions 04/05/2025 Telephone [facility] [address] [place] [address] Sharon Turner, RN Drain Care 04/05/2025 Travel 04/05/2025 Patient Outreach [facility] [address] [place] [address] Ryann Rivera, RN Primary RN Care Management; Hospital F/U (Lace=53) 04/03/2025 5:38 PM CDT - 04/04/2025 1:48 PM CDT Hospital Encounter [facility] [address], [place] [address] [facility]ists Of Kt Michaud MD Storlie, Raymond Fernández MD Discharge Disposition: Home Self Care 04/03/2025 Orders Only [facility] Scanner 1 scan: (1-Ord) [employer] [employer], ABD WO CON, 04/03/2025 04/03/2025 Orders Only [facility] Scanner 1 scan: (1-Ord) [facility], CT ABDOMEN PEVIC W CON, 04/03/2025 04/02/2025 Travel 04/01/2025 Orders Only [facility] [address] [place] [address] Rebeka Marquis <No scans attached> 04/01/2025 Orders Only [facility] [address] [place] [address] Rennere <No scans attached> 04/01/2025 Orders Only [facility] [address] [place] [address] Jeff Isi <No scans attached> 04/01/2025 Orders Only [facility] [address] [place] [address] Rebeka Marquis <No scans attached> 03/31/2025 12:43 PM CDT Anesthesia Event [facility] [address] [place] [address] Lynn Newton CRNA 03/31/2025 11:15 AM CDT - 03/31/2025 1:43 PM CDT Surgery [facility] [address] [place] [address] Sonny cMkeon MD LEFT PERCUTANEOUS NEPHROLITHOTOMY, LEFT ANTEGRADE NEPHROSTOGRAM, CYSTOSCOPY WITH LEFT RETROGRADE 03/31/2025 7:46 AM CDT - 04/02/2025 1:30 PM CDT Hospital Encounter [facility] [address] [place] [address] Sonny Mckeon MD Calculus of kidney Discharge Disposition: Home Self Care 03/30/2025 Travel 03/29/2025 10:15 AM CDT Orders Only [facility] [address] [place] [address] [place] [place] Lab 03/29/2025 8:30 AM CDT Office Visit [facility] [address] [place] [facility] [address] Vicente Hayes MD Sleep Follow-up 03/29/2025 Travel 03/27/2025 Orders Only [facility] Scanner 1 scan: (1-Ord) [facility], COMPLIANCE REPORT, 03/27/2025 03/24/2025 Travel 03/10/2025 4:05 PM CDT Office Visit [facility] [address] [facility] [address] Richar Rivas MD Preoperative Exam (Kidney stone /Surgery 03/31/2025) 03/10/2025 Travel 02/22/2025 Travel 02/14/2025 Telephone [facility] [address] [place] [address] Richar Rivas MD Abnormal Lab Results 02/02/2025 10:50 AM CDT Office Visit [facility] [address] [place] [address] Richar Rivas MD Preoperative Exam (Kidney stone/02/23/25 ANW/Dr. Mckeon) 02/02/2025 Travel 01/28/2025 Travel 01/18/2025 Orders Only [facility] [address] [place] [address] Rebeka Marquis 1 scan: Neph Tube & PCNL 01/07/2025 Orders Only [facility] Scanner 1 scan: (1-Ord) [employer], ABDOMEN PELVIS W CON , 01/07/2025 from Last 3 Months Immunizations Immunization Administration Dates Next Due COVID-19 vaccine ([employer] 30mcg/0.3mL) 12YO+ BIVALENT PF, MDV 08/11/2022 COVID-19 vaccine ([employer] 30mcg/0.3mL) 12YO+ KAREN-SUCROSE PF, MDV 12/27/2021 COVID-19 vaccine ([employer] 30mcg/0.3mL) PF, MDV 11/25/2020,11/04/2020 Influenza A (H1N1), [...] on file Legal 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 Gender Identity Not on file Sexual Orientation Not on file 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 on file Not on file Not on file Obstetrics History Last Filed Vital Signs Vital Sign Reading Time Taken Comments Blood Pressure 108/64 04/07/2025 7:32 AM CDT Pulse 68 04/07/2025 7:32 AM CDT Temperature 36.4 C (97.5 F) 04/07/2025 7:32 AM CDT Respiratory Rate 18 04/04/2025 7:53 AM CDT Oxygen Saturation 99% 04/07/2025 7:32 AM CDT Inhaled Oxygen Concentration - - Weight 107.5 kg (236 lb 14.4 oz) 04/07/2025 7:32 AM CDT Height 188 cm (6' 2) 03/31/2025 8:35 AM CDT Body Mass Index 30.42 03/31/2025 8:35 AM CDT Plan of Treatment Upcoming Encounters Date Type Department Care Team (Latest Contact Info) Description 04/14/2025 9:45 AM CDT Ancillary Procedure [facility] [address] [facility] [address] [place] [address] 04/27/2025 7:45 AM CDT Hospital Encounter [facility] [address] [place] [address] Sonny Mckeon MD [facility] [place] [address] 04/27/2025 7:45 AM CDT - 04/27/2025 10:16 AM CDT Surgery [facility] [address] [place] [address] Sonny Mckeon MD [facility] [place] [address] left percutaneous nephrolithotomy 06/09/2025 7:00 AM CDT Orders Only [facility] [address] [place] [address] [place] 06/25/2025 7:00 AM CDT Orders Only [facility] [address] [place] [address] [place] 06/28/2025 11:00 AM CDT Appointment [facility] [address] [place] [address] 07/06/2025 1:55 PM SPINNING DOFFER Office Visit [facility] [address] [place] [address] Richar Rivas MD [address] [place] [address] Scheduled Procedures Name Priority Associated Diagnoses Date/Ti [...] alem Goal Care Plan Autogenerated Problem No YonatanStephanie Procedures Procedure Name Priority Date/Time Associated Diagnosis Comments GLUCOSE METER Timed 04/04/2025 12:29 PM CDT CREATININE Early AM 04/04/2025 7:08 AM CDT GLUCOSE METER Timed 04/04/2025 6:30 AM CDT GLUCOSE METER Timed 04/03/2025 9:51 PM CDT GLUCOSE METER Timed 04/03/2025 7:10 PM CDT SCAN-CT INTERPRETATION 12:00 AM CDT SCAN-CT INTERPRETATION 12:00 AM CDT CREATININE [...] - 100 mg/dL 04/04/2025 12:30 PM CDT [facility] Blood BLOOD SPECIMEN / Unknown 04/04/2025 12:29 PM CDT 04/04/2025 12:30 PM CDT us Raymond Ford MD CHEMISTRY Final Resul t [facility] [address] [place] [address], * (ABNORMAL) CREATININE (04/04/2025 7:08 AM CDT) Only the most recent of5 resultswithin the time period is included. eGFR 59(L) >90 mL/min/1.7 3m2 04/04/2025 7:34 AM CDT [facility] Comment:As of 2021, eG FR is calculated by the CKD-EPI creatinine equation without race adjustment. eGFR can be influenced by muscle mass, exercise, and diet. The reported eGFR is an estimation only and is only applicable if the renal function is stable. CREATININE 1.26(H) 0.70 - 1.20 mg/dL 04/04/2025 7:34 AM CDT [facility] Blood BLOOD SPECIMEN / Unknown Venipuncture / Unknown 04/04/2025 7:08 AM CDT 04/04/2025 7:12 AM CDT us Kt Michaud MD CHEMISTRY Final Res ult [facility] [address] [place] [address], [place] * SCAN-CT INTERPRETATION (04/03/2025 12:00 AM CDT) Only the most recent of3 resultswithin the time period is included. Anatomical [...] renal pelvis. The tract was dilated. 8 Israeli Mitchell-Cabezas nephrostomy catheter was inserted over the [...] the lower pole and renal pelvis. 8 Israeli nephrostomy tube was placed uneventfully into the lower pole. Completion antegrade nephrostogram demonstrates satisfactory position of the pigtail at the renal pelvis stone. Extravasation at the ureteropelvic junction is noted similar to 1 day prior. Impression: Successful placement of a left 8 Israeli nephrostomy tube using ultrasound and fluoroscopic guidance. us Jo US IR Final Re sult * Hemoglobin (04/01/2025 7:42 AM CDT) Only the most recent of2 resultswithin the time period is included. HEMOGLOBIN 13.7 13.5 - 17.5 g/dL 04/01/2025 8:45 AM CDT [facility] MCV 90 80 - 100 fL 04/01/2025 8:45 AM CDT [facility] Blood BLOOD SPECIMEN / Unknown Butterfly / Unknown 04/01/2025 7:42 AM CDT 04/01/2025 8:10 AM CDT us Brandy US HEMATOLOGY Final R esult [facility] [address] [place] [address], [place] * CT ABDOMEN PELVIS STONE PROTOCOL [...] of the 21st Century Cures Act, medical imaging exams and [...] HCHG STYLET PR1 (03/31/2025 12:59 PM CDT) Lynn Pena CRNA - 03/31/2025 12:59 PM CDT Lynn [...] 440 thou/cu mm 03/31/2025 9:02 AM CDT [facility] MPV 10.3 6.5 - 11.0 fL 03/31/2025 9:02 AM CDT [facility] Blood BLOOD SPECIMEN / Unknown Butterfly / Unknown 03/31/2025 8:47 AM CDT 03/31/2025 8:53 AM CDT Lisa Bettencourt MD H EMATOLOGY Final Result [facility] [address] [place] [address], * (ABNORMAL) Protime-INR (03/31/2025 8:47 AM CDT) INR 1.1 <1.3 03/31/2025 9:05 AM CDT [facility] PROTIME 12.7(H) 10.6 - 12.4 sec 03/31/2025 9:05 AM CDT [facility] Blood BLOOD SPECIMEN / Unknown Butterfly / Unknown 03/31/2025 8:47 AM CDT 03/31/2025 8:53 AM CDT Narrative [facility] - 03/31/2025 9:05 AM CDT [...] Lisa Bettencourt MD H EMATOLOGY Final Result [facility] [address] [place] [address], [place] * SCAN-CARDIAC STRIP (03/31/2025 12:00 AM CDT) Narrative 03/31/2025 12:00 AM CDT Ordered by an unspecified provider. Other Clinical Staff OTHER Final Resul t * (ABNORMAL) BASIC METABOLIC PANEL (03/29/2025 10:12 AM CDT) Pathologist [facility] GLUCOSE 115(H) 65 - 99 mg/dL [facility] Comment: Fasting reference interval For [...] MD CHEMISTRY Final Resu lt [facility] [address] [place] [address], [facility] [address] [place] [address] * SCAN-DIAGNOSTIC REPORT (03/27/2025 12:00 AM CDT) Scanner OTHER Final Result * POTASSIUM (02/02/2025 12:29 PM CDT) Pathologist [facility] POTASSIUM 4.4 3.5 - 5.3 mmol/L [facility] Blood BLOOD SPECIMEN / Unknown 02/02/2025 12:29 PM CDT 02/02/2025 12:30 PM CDT Richar Rivas MD CHEMISTRY Final Resu lt Performing Organization Address City/[facility]/ZIP Co de Phone Number [facility] [address] [place] [address], [facility] [address] [place] [address] * ANTI HCV (06/06/2022 10:10 AM CDT) HEPATITIS C ANTIBODY Non-React [place] Non-React [place] 06/07/2022 4:24 AM CDT [facility] Comment:Antibodies to HCV no t detected; does not exclude the possibility of exposure to HCV. Blood BLOOD SPECIMEN / Unknown Venipuncture / Unknown 06/06/2022 10:10 AM CDT 06/06/2022 10:13 AM CDT us Richar Rivas MD SEND OUTS Final Resu lt [facility] [address] [place] [address], [place] from Last 3 Months or Most Recently Relevant to Health Maintenance Additional Health Concerns Active Problems Noted Date Diagnosed Date Autogenerated Problem 04/06/2025 Insurance MEDICARE PART B HB ONLY MEDICARE PART A HB ONLY MEDIC[place] [id number] Advance Directives * Full Code (Latest Code [...] 12:27 PM 11/12/2010 2:45 PM Care Teams Accounts Receivable Bookkeeper Relationship Specialty Start Date End Date Richar Rivas MD [address] [place] [facility] [address] PCP - General 05/29/06 Ambrosio Lizarraga MD [address] [place] [address] Cardiology Cardiovascular Disease 09/22/14
--- OUTSIDE RECORDS SUMMARY | 2025-04-08 11:25 | XMS_ITS | Clinical Summary ---
Author Organization [facility] Address [address] [place] [address] Care Team Providers Care Loft Patternmaker Name Role Phone Unavailable Primary Care Provider Unavailabl e Source Comments Patient records contain information from all sites at [facility]. For routine questions regarding patient records, call [phone] during business hours, M-F 8:00 AM - 5:00 PM Central Time. 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
[2025-04-08 11:51] VITALS: BP 134/75; PULSE 66; RESP 16; TEMP 36.4; O2SAT 98
--- NOTE | 2025-04-08 12:27 | ED.GENADULT ---
HPI - General Adult General Date Seen: 04/08/25 Chief complaint: Unspecified Complaint, Adult Stated complaint: kidney stone- complications Time Seen by Provider: 04/08/25 11:50 History of Present Illness HPI narrative: Patient is a 74-year-old here with his for evaluation due to concerns relating to his nephrostomy tube. He originally had a nephrostomy tube placed on April 01 by [place] [facility] related to a kidney stone. He has had some difficulties with leakage, a 2nd tube was actually placed and so he now he has the old site as well as a new tube. This tube has been draining properly but he has continued to have leakage both around that tube and the old site. Has been seen several times related to that, transferred up to [place] a few days ago, everything was working well. They have been using a diaper over the site which seems to be working well at this point in terms of drainage. comes in today because the urine that was draining onto the diaper was pink-tinged this morning. She did not reach out to [place] [facility] this time, she says in general she has not found it helpful to do so so she just came in. He denies any flank or abdominal pain, he has not had fevers, chills, nausea or vomiting. Otherwise feels well. Urine is not cloudy or malodorous. He takes a baby aspirin, no other anticoagulation. Related Data Home Medications ?Medication ?Instructions ?Recorded ?Confirmed amlodipine 5 mg tablet 5 mg PO DAILY 01/07/25 04/03/25 aspirin 81 mg tablet,delayed 81 mg PO DAILY 01/07/25 01/07/25 release (Adult Aspirin Regimen) atorvastatin 40 mg tablet 40 mg PO DAILY 01/07/25 04/03/25 budesonide-formoterol HFA 160 2 inh inhalation Q12H PRN 01/07/25 04/03/25 mcg-4.5 mcg/actuation aerosol inhaler doxycycline hyclate 50 mg capsule 50 mg PO DAILY 01/07/25 04/03/25 metoprolol succinate 50 mg 50 mg PO DAILY 01/07/25 04/03/25 tablet,extended release 24 hr fexofenadine 180 mg tablet 180 mg PO DAILY 04/03/25 04/03/25 (Juliette Flor) oxycodone 5 mg tablet PO 08/02/25 Allergies Allergy/AdvReac Type Severity Reaction Status Date / Time amoxicillin Allergy Intermediate Rash Verified 04/08/25 11:46 lisinopril AdvReac Cough Verified 04/08/25 11:46 Review of Systems Status of ROS: Reports: 6 or more systems reviewed and unremarkable except as noted in History and below [facility] Social History Smoking Status: Never smoker Do you use any of these nicotine containing products: None How often do you have a drink containing alcohol: never AUDIT-C Alcohol total score: 0 Non-prescribed substance use: denies use service: No Exam Narrative: Exam Narrative: Vital signs reviewed In general, alert, well-appearing elderly male. Nontoxic. There is a clean dry diaper overlying his left flank, no visible drainage or bleeding. Abdomen is soft and nontender to palpation. Const: Vital Signs, click to edit/add: Vital Signs - 24 hr 04/08/25 11:51 Temperature 97.5 F L Pulse Rate [Pulse Oximeter] 66 Respiratory Rate 16 Blood Pressure [Ri ght Upper Arm] 134/75 Pulse Oximetry 98 Oxygen Delivery Me thod Room Air Course Course ED Course: Records reviewed in his past few visits, today will check a UA and just make sure that it does not look significantly abnormal. Discussed with his that I think having a little bit of blood in the urine given that his kidney has been recently instrumented a couple of times is not at all on expected. I do send she is significantly frustrated as she does not know how to take care of this, she worries when anything changes and she does not feel that she is getting any help from the clinic when she has questions. I will try to reach out to [place] [facility], review the urine with them, and perhaps ask if 1 of the nurses can touch base proactively with her for the next couple of days just to make sure that if she has any questions they are answered. Urinalysis is reassuring, 10-25 red cells only few white cells I think with an indwelling structure that this is reassuring. I did talk with the on-call urologist at [facility]. He will ask someone from the urology clinic to reach out to them tomorrow. Answered remaining questions from his . Discussed reasons to return such as abdominal or flank pain, high fevers, chills, vomiting or other worsening. For now continue current cares. Vital Signs Vital signs: Initial Vital Signs Temperature 97.5 F L 04/08/25 11:51 Temperature Source Temporal Artery Scan 04/08/25 11:51 Pulse Rate 66 04/08/25 11:51 Respiratory Rate 16 04/08/25 11:51 Blood Pressure 134/75 04/08/25 11:51 Blood Pressure Mean 94 04/08/25 11:51 Blood Pressure Position Sitting 04/08/25 11:51 Pulse Oximetry 98 04/08/25 11:51 Oxygen Delivery Method Room Air 04/08/25 11:51 Vital Signs Temperature 97.5 F L 04/08/25 11:51 Pulse Rate 66 04/08/25 11:51 Respiratory Rate 16 04/08/25 11:51 Blood Pressure 134/75 04/08/25 11:51 Pulse Oximetry 98 04/08/25 11:51 Oxygen Delivery Method Room Air 04/08/25 11:51 Temperature 97.5 F L 04/08/25 11:51 Pulse Rate 66 04/08/25 11:51 Respiratory Rate 16 04/08/25 11:51 Blood Pressure 134/75 04/08/25 11:51 Pulse Oximetry 98 04/08/25 11:51 Oxygen Delivery Method Room Air 04/08/25 11:51 Medical Decision Making Lab Data Labs: Lab Results 04/08/25 Range/Units 12:20 Urine Color Light yellow (Yellow) Urine Appearance Cloudy A (Clear) Urine pH 6.0 (5.0-8.5) Ur Specific [place] 1.015 (1.000-1.030) Urine Protein 2+ A (Negative) Urine Glucose (UA) Negative (Negative) Urine Ketones Negative (Negative) Urine Blood 3+ A (Negative) Urine Nitrite Negative (Negative) Urine Bilirubin Negative (Negative) Urine Urobilinogen 0.2 (0.2-1.0) Ur Leukocyte Esterase 1+ A (Negative) Urine RBC 10-25 A (0-2) Urine WBC 5-10 A (0-5) Ur Squamous Epith Cells Few (None-Few) Urine Bacteria Few A (None) Urine Mucus Few A (None) Discharge Plan Discharge Clinical Impression: Hematuria, microscopic, History of insertion of nephrostomy tube Patient Disposition: Home, Self-Care Condition: Stable Instructions: Hematuria (ED) Additional Instructions: The urine today looks very reassuring. There are a few red blood cells, but no evidence of infection. I did talk with urologist on-call and asked him to have Dr. Jenkins's team reach out to tomorrow morning to check and see how you are doing. If in the meantime you have significant bleeding into the urostomy bag such that the urine looks like red wine, or if you develop symptoms of infection such as fevers, chills, vomiting or flank pain, return to the ER. Prescriptions: No Action metoprolol succinate 50 mg tablet extended release 24 hr 50 mg PO DAILY amlodipine 5 mg tablet 5 mg PO DAILY atorvastatin 40 mg tablet 40 mg PO DAILY budesonide-formoterol 160-4.5 mcg/actuation HFA aerosol inhaler 2 inh inhalation Q12H PRN doxycycline hyclate 50 mg capsule 50 mg PO DAILY aspirin [Adult Aspirin Regimen] 81 mg tablet,delayed release (DR/EC) 81 mg PO DAILY Patient Comments: holding until Apr 05, 2925 oxycodone 5 mg tablet PO fexofenadine [Juliette Hives] 180 mg tablet 180 mg PO DAILY Follow Up/Referrals: Richar Rivas MD [Primary Care Provider, Family Practice] Stand Alone Forms: [employer] Info Instructions
[2025-04-08 12:29] LABS: Appearance Urine Cloudy (Clear)
== END 2025-04-08 13:24 | disposition home or self-care (01) ==
PROVIDERS: Emergency Provider Emergency Medicine; PCP Family Medicine
DX: R31.9 Hematuria, unspecified (principal); Z93.6 Other artificial openings of urinary tract status
CPT/HCPCS: 81001; 87086; 99283; 99284

== ENCOUNTER 2025-04-12 16:04 | Emergency (ER) | payer MEDICARE, BC, SELFPAY ==
--- OUTSIDE RECORDS SUMMARY | 2025-04-12 16:07 | XMS_ITS | Clinical Summary ---
Author Organization [employer] [facility] Address [address] [place] [address] Care Team Providers Care Tension Machine Operator Name Role Phone Richar Rivas MD Primary Care Provider [phone] Ambrosio Lizarraga MD Unavailable [phone] Allergies Active Allergy Reactions Criticality Noted Date Comments Amoxicillin Rash High 10/06/2007 facial 1998 Lisinopril Cough 09/08/2020 Medications aspirin enteric coated 81 mg tablet Take 1 tablet by mouth once daily with a meal. 0 2 Active fexofenadine (GRAHAM) 180 mg tablet Take 180 mg by mouth once daily. Do not crush or chew. 0 2 Active Gvygd-1-HGL-EPA -Fish Oil (Fish OiL) 1,000 mg (120 mg-180 mg) cap Take 1 Capsule by mouth once daily. Active doxycycline 100 mg tabletIndicatio ns:Rosacea Take 0.5 Tablets (50 mg) by mouth once daily. This is the correct dose. 50 Tablet 2 4 Active CPAPIndications :CADNIE (obstructive sleep apnea) RESMED CPAP (E0601) machine [...] sustained-relea se tabletIndicatio ns:Coronary artery disease involving cap[place] band coronary artery of cap[place] band heart without angina pectoris Take 1 Tablet [...] sustained-relea se tabletIndicatio ns:Coronary artery disease involving [place] band coronary artery of [place] heart without angina pectoris Take 1 Tablet [...] < 70 12/27/2010 CAD (coronary artery disease), cap[place] band coronary a rtery 12/27/2010 Acute myocardial infarction 11/10/2010 Hypertension 11/10/2010 Unspecified sinusitis (chronic) 10/19/2010 Rosacea 10/06/2007 Allergic rhinitis, cause unspecified Resolved Problems Problem Noted Date Diagnosed Date Resolved Date Other and unspecified hyperlipidemia 10/06/2007 12/27/2010 Encounters Date Type Department Care Team Description 04/12/2025 Nurse Triage [facility] [address] [place] [address] Richar Rivas MD Derm Problem (Redness at nephrostomy tube site) 04/09/2025 Travel 04/08/2025 Orders Only [facility] [address] [place] [address] Rebeka Marquis 1 scan: PCNL 04/07/2025 7:35 AM CDT Office Visit [facility] [address] [place] [address] Richar Rivas MD Hospital F/U ([facility]cevedo - kidney stone/Go over lab results) 04/07/2025 Telephone [facility] [address] [place] [address] Richar Rivas MD 04/06/2025 Travel 04/06/2025 Telephone [facility] [address] [place] [address] Richar Rivas MD Questions 04/05/2025 Telephone [facility] [address] [place] [address] Sharon Turner, RN Drain Care 04/05/2025 Travel 04/05/2025 Patient Outreach [facility] [address] [place] [address] Ryann Rivera, RN Primary RN Care Management; Hospital F/U (Lace=53) 04/03/2025 5:38 PM CDT - 04/04/2025 1:48 PM CDT Hospital Encounter [facility] [address] [place] [address] [place], [facility] Hospitalists Of [facility], MD Liliana Wiseman Erik John, MD Discharge Disposition: Home Self Care 04/03/2025 Orders Only [facility] Scanner 1 scan: (1-Ord) [facility], ABD WO CON, 04/03/2025 04/03/2025 Orders Only [facility] Scanner 1 scan: (1-Ord) [facility], CT ABDOMEN PEVIC W CON, 04/03/2025 04/02/2025 Travel 04/01/2025 Orders Only [facility] [address] [place] [address] Rebeka Marquis <No scans attached> 04/01/2025 Orders Only [facility] [address] [place] [address] Tubah, Isi <No scans attached> 04/01/2025 Orders Only [facility] [address] [place] [address] Tubah, Isi <No scans attached> 04/01/2025 Orders Only [facility] [address] [place] [address] Rebeka Marquis <No scans attached> 03/31/2025 12:43 PM CDT Anesthesia Event [facility] [address] [place] [address] Lynn Newton CRNA 03/31/2025 11:15 AM CDT - 03/31/2025 1:43 PM CDT Surgery [facility] [address] [place] [address] Sonny Mckeon MD LEFT PERCUTANEOUS NEPHROLITHOTOMY, LEFT ANTEGRADE NEPHROSTOGRAM, CYSTOSCOPY WITH LEFT RETROGRADE 03/31/2025 7:46 AM CDT - 04/02/2025 1:30 PM CDT Hospital Encounter [facility] [address] [place] [address] Sonny Mckeon MD Calculus of kidney Discharge Disposition: Home Self Care 03/30/2025 Travel 03/29/2025 10:15 AM CDT Orders Only [facility] [address] [place] [address] Lab, [place] Lab 03/29/2025 8:30 AM CDT Office Visit [facility] [address] [place] [address] Vicente Hayes MD Sleep Follow-up 03/29/2025 Travel 03/27/2025 Orders Only [facility] Scanner 1 scan: (1-Ord) [facility], COMPLIANCE REPORT, 03/27/2025 03/24/2025 Travel 03/10/2025 4:05 PM CDT Office Visit [facility] [address] [place] [address] Richar Rivas MD Preoperative Exam (Kidney stone /Surgery 03/31/2025) 03/10/2025 Travel 02/22/2025 Travel 02/14/2025 Telephone [facility] [address] [place] [address] Richar Rivas MD Abnormal Lab Results 02/02/2025 10:50 AM CDT Office Visit [facility] [address] [place] [address] Richar Rivas MD Preoperative Exam (Kidney stone/02/23/25 ANW/Dr. 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 Gender Identity Not on file Sexual Orientation [...] Description 04/14/2025 9:45 AM CDT Ancillary Procedure [facility] [address] [facility] [address] [place] [address] 04/27/2025 7:45 AM CDT Hospital Encounter [facility] [address] [place] [address] Sonny Mckeon MD [address] [place] [address] [address] [place] [address] 04/27/2025 7:45 AM CDT - 04/27/2025 10:16 AM CDT Surgery [facility] [address] [place] [address] Sonny Mckeon MD [address] [place] [address] [address] [place] [address] left percutaneous nephrolithotomy 04/27/2025 8:00 AM CDT Appointment [facility] [address] [place] [address] 06/09/2025 7:00 AM CDT Orders Only [facility] [address] [place] [address] Lab, [place] 06/25/2025 7:00 AM CDT Orders Only [facility] [address] [place] [address] Lab, [place] 06/28/2025 11:00 AM CDT Appointment [facility] [address] [place] [address] 07/06/2025 1:55 PM CHIEF OPERATOR LOCK TENDER Office Visit [facility] [address] [place] [address] Richar Rivas MD [address] [place] [address] Scheduled Procedures Name Priority Associated Diagnoses Date/Ti [...] alem Goal Care Plan Autogenerated Problem No Stephanie Tam Procedures Procedure Name Priority Date/Time Associated Diagnosis [...] 12:29 PM CDT Preoperative general physical examination ANTI HCV Routine 06/06/2022 10:10 AM CDT Need for hepatitis C screening test from Last 3 Months or Most Recently Relevant to Health Maintenance Results * (ABNORMAL) GLUCOSE METER (04/04/2025 12:29 PM CDT) Only the most recent of5 resultswithin the time period is included. GLUCOSE METER 110(H) 65 - 100 mg/dL 04/04/2025 12:30 PM CDT [facility] Blood BLOOD SPECIMEN / Unknown 04/04/2025 12:29 PM CDT 04/04/2025 12:30 PM CDT us Raymond Ford MD CHEMISTRY Final Resul t [facility] [address] [place] [address], [place] * (ABNORMAL) CREATININE (04/04/2025 7:08 AM CDT) Only the most recent of5 resultswithin the time period is included. eGFR 59(L) >90 mL/min/1.7 3m2 04/04/2025 7:34 AM CDT [facility] Comment:As of 2021, eG FR is calculated by the CKD-EPI creatinine equation without race adjustment. eGFR can be influenced by muscle mass, exercise, and diet. The reported eGFR is an estimation only and is only applicable if the renal function is stable. CREATININE 1.26(H) 0.70 - 1.20 mg/dL 04/04/2025 7:34 AM CDT [facility] Blood BLOOD SPECIMEN / Unknown Venipuncture / Unknown 04/04/2025 7:08 AM CDT 04/04/2025 7:12 AM CDT us Kt Michaud MD CHEMISTRY Final Res ult [facility] [address] [place] [address], * SCAN-CT INTERPRETATION (04/03/2025 12:00 AM CDT) [...] renal pelvis. The tract was dilated. 8 American Mitchell-Cabezas nephrostomy catheter was inserted over the [...] the lower pole and renal pelvis. 8 American nephrostomy tube was placed uneventfully into the lower pole. Completion antegrade nephrostogram demonstrates satisfactory position of the pigtail at the renal pelvis stone. Extravasation at the ureteropelvic junction is noted similar to 1 day prior. Impression: Successful placement of a left 8 American nephrostomy tube using ultrasound and fluoroscopic guidance. us Jo US IR Final Re sult * Hemoglobin (04/01/2025 7:42 AM CDT) Only the most recent of2 resultswithin the time period is included. HEMOGLOBIN 13.7 13.5 - 17.5 g/dL 04/01/2025 8:45 AM CDT [facility] MCV 90 80 - 100 fL 04/01/2025 8:45 AM CDT [facility] Blood BLOOD SPECIMEN / Unknown Butterfly / Unknown 04/01/2025 7:42 AM CDT 04/01/2025 8:10 AM CDT us Brandy US HEMATOLOGY Final R esult [facility] [address] [address], [place] * CT ABDOMEN PELVIS STONE PROTOCOL [...] 440 thou/cu mm 03/31/2025 9:02 AM CDT [facility] MPV 10.3 6.5 - 11.0 fL 03/31/2025 9:02 AM CDT [facility] Blood BLOOD SPECIMEN / Unknown Butterfly / Unknown 03/31/2025 8:47 AM CDT 03/31/2025 8:53 AM CDT Lisa Bettencourt MD H EMATOLOGY Final Result [facility] [address] [place] [address], * (ABNORMAL) Protime-INR (03/31/2025 8:47 AM CDT) INR 1.1 <1.3 03/31/2025 9:05 AM CDT [facility] PROTIME 12.7(H) 10.6 - 12.4 sec 03/31/2025 9:05 AM CDT [facility] Blood BLOOD SPECIMEN / Unknown Butterfly / Unknown 03/31/2025 8:47 AM CDT 03/31/2025 8:53 AM CDT Narrative [facility] - 03/31/2025 9:05 AM CDT Therapeutic [...] patient is on UFH. Lisa Bettencourt MD EMATOLOGY Final Result [facility] [address] [place] [address], [place] * SCAN-CARDIAC STRIP (03/31/2025 12:00 AM CDT) Narrative 03/31/2025 12:00 AM CDT Ordered by an unspecified provider. Other Clinical Staff OTHER Final Resul t * (ABNORMAL) BASIC METABOLIC PANEL (03/29/2025 10:12 AM CDT) GLUCOSE 115(H) 65 - 99 mg/dL [facility] Comment: Fasting reference interval For someone without known diabetes, a glucose value between 100 and 125 mg/dL is consistent with prediabetes and should be confirmed with a follow-up test. UREA NITROGEN (BUN) 21 7 - 25 mg/dL [facility] CREATININE 1.38(H) 0.70 - 1.28 mg/dL [facility] EGFR 53(L) > OR = 60 mL/min/1.7 3m2 [facility] BUN/CREATININE RATIO 15 6 - 22 (calc) [facility] SODIUM 140 135 - 146 [...] CHEMISTRY Final Resu lt Performing Organization Address City/[facility]/ZIP Co de Phone Number [email or web address] [facility] [address] [place] [address], [place] [phone] [facility] [address] [place] [address] * SCAN-DIAGNOSTIC REPORT (03/27/2025 12:00 AM CDT) us Scanner OTHER Final Result * POTASSIUM (02/02/2025 12:29 PM CDT) [facility] POTASSIUM 4.4 3.5 - 5.3 mmol/L [facility] Blood BLOOD SPECIMEN / Unknown 02/02/2025 12:29 PM CDT 02/02/2025 12:30 PM CDT Richar Rivas MD CHEMISTRY Final Resu lt [email or web address] [facility] [address] [place] [address], [place] [phone] [facility] [address] [place] [address] * ANTI HCV (06/06/2022 10:10 AM CDT) [facility] HEPATITIS C ANTIBODY Non-[facility]act [facility] 06/07/2022 4:24 AM CDT [facility] Comment:Antibodies to HCV no t detected; does not exclude the possibility of exposure to HCV. Blood BLOOD SPECIMEN / Unknown Venipuncture / Unknown 06/06/2022 10:10 AM CDT 06/06/2022 10:13 AM CDT us Richar Rivas MD SEND OUTS Final Resu lt [facility] [address] [place] [address], [place] from Last 3 Months or Most Recently Relevant to Health Maintenance Additional Health Concerns Active Problems Noted Date Diagnosed Date Autogenerated Problem 04/06/2025 Insurance MEDICARE PART B HB ONLY MEDICARE PART A HB ONLY MEDICARE PB ONLY [facility] Advance Directives * Full Code (Latest [...] 12:27 PM 11/12/2010 2:45 PM Care Teams Tension Machine Operator Relationship Specialty Start Date End Date Richar Rivas MD [address] [place] [address] PCP - General 05/29/06 Ambrosio Lizarraga MD [address] [place] [address] Cardiology Cardiovascular Disease 09/22/14
--- OUTSIDE RECORDS SUMMARY | 2025-04-12 16:07 | XMS_ITS | Clinical Summary ---
Author Organization [place] Address [address] [place] [address] Care Team Providers Care External Relations Manager Name Role Phone Richar Rivas MD Primary Care Provider [phone]- [phone] Allergies Active Allergy Reactions Criticality Noted Date [...] Sex Assigned at Male 10/16/2021 11:49 AM REPORTER ANCHOR Legal Sex Male 3:11 AM REPORTER ANCHOR Gender Identity Male 10/16/2021 11:49 AM REPORTER ANCHOR Sexual Orientation Straight 10/16/2021 11 :49 AM REPORTER ANCHOR Last Filed Vital Signs Vital Sign Reading Time Taken Comments Blood Pressure 142/89 10/26/2021 2:20 PM REPORTER ANCHOR Pulse 72 10/26/2021 2:20 PM REPORTER ANCHOR Temperature 36.2 C (97.2 F) 10/26/2021 2:20 PM REPORTER ANCHOR Respiratory Rate 16 10/26/2021 2:20 PM REPORTER ANCHOR Oxygen Saturation 98% 10/26/2021 2:20 PM REPORTER ANCHOR Inhaled Oxygen Concentration - - Weight 116.2 kg (256 lb 1.6 oz) 10/26/2021 9:03 AM REPORTER ANCHOR Height 190.5 cm (6' 3) 10/26/2021 9:03 AM REPORTER ANCHOR Body Mass Index 32.01 10/26/2021 9:03 AM REPORTER ANCHOR Plan of Treatment Health Maintenance Due Date [...] Cholesterol (External) 125 100 - 199 mg/dL [facility] Triglycerides (External) 163(H) <150 mg/dL [facility] HDL Cholesterol (External) 28(L) >40 mg/dL [facility] LDL Cholesterol (External) 64 <=130 mg/dL [facility] Non HDL Cholesterol (External) 97 <145 mg/dL [facility] Blood 06/22/2020 10:4 2 AM CDT Narrative [facility] - 06/22/2020 10:42 AM CDT Care Everywhere, [facility] us Provider Outside LAB - HIM EXTERNAL RESULT Final Result [facility] [address] [place] [address], [facility] * Glucose (External Result) (06/22/2020 10:42 AM CDT) Glucose (External) 100 65 - 100 mg/dL [facility] Blood 06/22/2020 10:4 2 AM CDT Narrative [facility] - 06/22/2020 10:42 AM CDT Care Everywhere, [facility] us Provider Outside LAB - HIM EXTERNAL RESULT Final Result [facility] [address] [place] [address], [facility] * Colonoscopy - HIM Scan (03/06/2018) Narrative [facility] - 03/06/2018 Care Everywhere, [place] us Provider Outside PROCEDURES Final Result from Last 3 Months or Most Recently Relevant to Health Maintenance Insurance MEDICARE [facility] MEDICARE SUPPLEMENT Care Teams External Relations Manager Relationship Specialty Start Date End Date Richar Rivas MD PCP - General Family Medicine 10/03/21
--- OUTSIDE RECORDS SUMMARY | 2025-04-12 16:07 | XMS_ITS | Clinical Summary ---
Author Organization [facility] Address [address] [place] [id number] Care Team Providers Care Research Analyst Name Role Phone Unavailable Primary Care Provider Unavailabl e Source Comments Patient records contain information from all sites at [facility]. For routine questions regarding patient records, call [phone] during business hours, M-F 8:00 AM - 5:00 PM Central Time. Record requests for emergency care only can be directed to [phone] at any time.[facility] Allergies [...] PM CDT Legal Sex Male 10:22 AM [employer] Gender Identity Male 02/06/2022 5:15 PM CDT [...] age to complete this topic Insurance MEDICARE [facility]
[2025-04-12 16:34] VITALS: BP 138/76; PULSE 57; RESP 16; TEMP 36.8; O2SAT 96; BMI 30.2
== END 2025-04-12 20:01 | disposition home or self-care (01) ==
LOC: ED 19:54
PROVIDERS: PCP Family Medicine
DX: R31.9 Hematuria, unspecified (principal)